=== PATIENT | female | born 1970 | race Caucasian/White ===

== ENCOUNTER 2016-10-01 15:22 | Inpatient (IN) | payer OTHER ==
[2016-10-01] MEDS ORDERED: SODIUM CHLORIDE 0.9% 1,000 ML IV STA (16:44)
[2016-10-01 17:06] LABS: Anisocytosis Slight; Basophils # (A) 0.1 k/uL (0-0.2); Basophils % (A) 1 %; CH 35.5; CHCM 32.2; Eosinophils # (A) 0.3 k/uL (0-0.7); Eosinophils % (A) 3 %; HCT 36.3 % (34.0-46.0); HDW 2.07; HGB 11.6 gm/dL (11.4-16.0); Luc # (Auto) 0.34; Luc % (Auto) 3; Lymphocytes % (A) 19 %; MCH 35.3 pg (25.0-35.0); MCHC 31.9 g/dL (31.0-37.0); MCV 110.9 fL (80.0-100.0); Macrocytosis Marked; Mean Platelet Volume 7.9; Monocytes # (A) 0.6 k/uL (0-1.0); Monocytes % (A) 6 %; Neutrophils % (A) 68 %; RBC 3.28 m/uL (3.80-5.40); RDW 16.1 % (11.5-15.5); WBC 10.3 k/uL (3.8-10.6); WBC (Perox) 10.09
[2016-10-01 17:07] LABS: Appearance,Urine Cloudy (Clear); Bacteria,Urine Rare /hpf; Bilirubin,Urine 2+ (Negative); Glucose,Urine (UA) Negative (Negative); Ketones,Urine Negative (Negative); Leukocyte Esterase,Urine Negative (Negative); Mucus,Urine Moderate /hpf; Nitrite,Urine Negative (Negative); Particle Count 9714; Protein,Urine Trace (Negative); RBC,Urine 2 /hpf (0-5); Specific Gravity,Urine 1.028 (1.001-1.035); Squamous Epithelial Cell,Urine 2 /hpf (0-4); UA Billing (MACRO vs. MICRO) MICRO; WBC,Urine 2 /hpf (0-5)
[2016-10-01 17:13] LABS: ALT 44 U/L (9-52); AST 118 U/L (14-36); Acetaminophen <10.0 ug/mL; Alcohol <10 mg/dL; Alkaline Phosphatase 204 U/L (38-126); Anion Gap 13 mmol/L; Blood Urea Nitrogen 7 mg/dL (7-17); Calcium 8.7 mg/dL (8.4-10.2); Carbon Dioxide 26 mmol/L (22-30); Chloride 99 mmol/L (98-107); Glucose 81 mg/dL (74-99); Magnesium 1.7 mg/dL (1.6-2.3); Non-African American GFR(MDRD) >60 (>60 ml/min/1.73 sqM); Phosphorous 4.4 mg/dL (2.5-4.5); Salicylate <1.0 mg/dL; Sodium 138 mmol/L (137-145); Total Bilirubin 7.8 mg/dL (0.2-1.3)
--- NOTE | 2016-10-01 17:15 | XR ---
EXAMINATION TYPE: XR chest 2V DATE OF EXAM: 10/01/2016 5:10 PM COMPARISON: NONE HISTORY: Jaundice and abdominal swelling TECHNIQUE: Frontal and lateral views of the chest are obtained. FINDINGS: Heart and mediastinum are normal. The lungs are clear of consolidation. There are no hilar masses. There is a relatively poor inspiration. Bony thorax is intact. IMPRESSION: Poor aspiration. Otherwise negative exam.
[2016-10-01 17:16] LABS: INR 2.1 (<1.1); Partial Thromboplastin Time 32.6 sec (22.0-30.0); Prothrombin Time 20.7 sec (9.0-12.0)
--- NOTE | 2016-10-01 17:19 | ED ---
General Adult HPI - General Chief complaint: Abdominal Pain Stated complaint: Abd Pain Time Seen by Provider: 10/01/16 16:06 Source: patient, RN notes reviewed, old records reviewed Mode of arrival: ambulatory Limitations: no limitations - History of Present Illness Initial comments: This is a 46-year-old female to the ER for evaluation of not feeling well the bowel pain and decreased appetite weight loss. Patient has no alcohol disease and is recently going through alcohol withdrawal, should make it completely through withdrawal and has no complaint withdraws time which is recently of severe swelling of her abdomen. Patient states her dialysis line is been going on for about a week getting severe and getting worse. She is also noticed skin color change and yellowing of her skin. She states she does not feel great but she still feels like she got throughout cultural - Related Data Home Medications Medication Instructions Recorded Confirmed Potassium Chloride ER [K-Dur 20] 20 mg PO QAM 10/01/16 10/01/16 Sertraline [Zoloft] 25 mg PO DAILY@1200 10/01/16 10/01/16 Spironolactone [Aldactone] 50 mg PO BID@1200,2100 10/01/16 10/01/16 Allergies Allergy/AdvReac Type Severity Reaction Status Date / Time No Known Allergies Allergy Verified 10/01/16 17:16 Review of Systems ROS Statement: Those systems with pertinent positive or pertinent negative responses have been documented in the HPI. ROS Other: All systems not noted in ROS Statement are negative. Past Medical History Additional Past Medical History / Comment(s): enlarged liver History of Any Multi-Drug Resistant Organisms: None Reported Past Surgical History: Section Past Psychological History: No Psychological Hx Reported Smoking Status: Never smoker Past Alcohol Use History: Heavy Past Drug Use History: None Reported General Exam - General Exam Comments Initial Comments: Jaundice, anxious Limitations: no limitations General appearance: alert, in no apparent distress Head exam: Present: atraumatic, normocephalic, normal inspection Eye exam: Present: normal appearance, PERRL, EOMI. Absent: scleral icterus, conjunctival injection, periorbital swelling ENT exam: Present: normal exam, mucous membranes moist Neck exam: Present: normal inspection. Absent: tenderness, meningismus, lymphadenopathy Respiratory exam: Present: normal lung sounds bilaterally. Absent: respiratory distress, wheezes, rales, rhonchi, stridor Cardiovascular Exam: Present: regular rate, normal rhythm, normal heart sounds. Absent: systolic murmur, diastolic murmur, rubs, gallop, clicks GI/Abdominal exam: Present: soft, normal bowel sounds. Absent: distended, tenderness, guarding, rebound, rigid Extremities exam: Present: normal inspection, full ROM, normal capillary refill. Absent: tenderness, pedal edema, joint swelling, calf tenderness Back exam: Present: normal inspection Neurological exam: Present: alert, oriented X3, CN II-XII intact Psychiatric exam: Present: normal affect, normal mood Skin exam: Present: warm, dry, intact, normal color. Absent: rash Course Vital Signs 10/01/16 15:44 Temperature 98.0 F Pulse Rate 84 Respiratory 18 Rate Blood Pressure 118/70 O2 Sat by Pulse 96 Oximetry - Reevaluation(s) Reevaluation #1: 10/01/16 17:30 Patient states she feels a little jittery, but not altered as far as her mental status goes EKG Findings - EKG Comments: EKG Findings:: EKG shows normal sinus rhythm rate 84, SD 152, QRS 84, QTC 493 Medical Decision Making - Medical Decision Making 46-year-old year with hyperbilirubinemia, alcohol cirrhosis, abdominal ascites, patient be admitted for paracentesis, GI evaluation - Lab Data Result diagrams: 10/01/16 16:30 Lab Results 10/01/16 10/01/16 10/01/16 Range/Units 16:30 16:30 16:30 WBC 10.3 (3.8-10.6) k/uL RBC 3.28 L (3.80-5.40) m/uL Hgb 11.6 (11.4-16.0) gm/dL Hct 36.3 (34.0-46.0) % MCV 110.9 H (80.0-100.0) fL MCH 35.3 H (25.0-35.0) pg MCHC 31.9 (31.0-37.0) g/dL RDW 16.1 H (11.5-15.5) % Plt Count 171 (150-450) k/uL PT 20.7 H (9.0-12.0) sec INR 2.1 (<1.1) APTT 32.6 H (22.0-30.0) sec Urine Color Brown Urine Appearance Cloudy H (Clear) Urine pH 6.0 (5.0-8.0) Ur Specific [place] 1.028 (1.001-1.035) Urine Protein Trace H (Negative) Urine Glucose (UA) Negative (Negative) Urine Ketones Negative (Negative) Urine Blood Negative (Negative) Urine Nitrite Negative (Negative) Urine Bilirubin 2+ H (Negative) Urine Urobilinogen 12.0 (<2.0) mg/dL Ur Leukocyte Esterase Negative (Negative) Urine RBC 2 (0-5) /hpf Urine WBC 2 (0-5) /hpf Ur Squamous Epith Cells 2 (0-4) /hpf Urine Bacteria Rare H (None) /hpf Hyaline Casts 4 H (0-2) /lpf Urine Mucus Moderate H (None) /hpf Urine Opiates Screen Not Detected (NotDetected) Ur Oxycodone Screen Not Detected (NotDetected) Urine Methadone Screen Not Detected (NotDetected) Ur Propoxyphene Screen Not Detected (NotDetected) Ur Barbiturates Screen Not Detected (NotDetected) U Tricyclic Antidepress Not Detected (NotDetected) Ur Phencyclidine Scrn Not Detected (NotDetected) Ur Amphetamines Screen Not Detected (NotDetected) U Methamphetamines Scrn Not Detected (NotDetected) U Benzodiazepines Scrn Not Detected (NotDetected) Urine Cocaine Screen Not Detected (NotDetected) U Marijuana (THC) Screen Not Detected (NotDetected) - Radiology Data Radiology results: report reviewed (Chest x-ray is negative for acute disease), image reviewed Disposition Clinical Impression: Abdominal pain, Ascites, Alcoholic cirrhosis, Liver failure, Hyperbilirubinemia Disposition: ADMITTED IP TO THIS [facility] Condition: Fair Referrals: None,Stated [Primary Care Provider] - 1-2 days
[2016-10-01] MEDS ORDERED: SODIUM CHLORIDE 0.9% 1,000 ML IV ONE (17:24)
[2016-10-01 17:25] LABS: Creatine Kinase 31 U/L (30-135)
[2016-10-01 17:30] LABS: Manual Review Performed; Target Cells Present
[2016-10-01 17:31] LABS: Polychromasia Present
[2016-10-01 17:35] LABS: Creatine Kinase MB <0.2 ng/mL (0.0-2.4)
[2016-10-01] MEDS ORDERED: THIAMINE 100 MG/ML 2 ML VIAL IM STA (17:41)
[2016-10-01] MEDS ORDERED: LORazepam 2 MG/ML SYRINGE IV PRN ×3 (17:41)
[2016-10-01 17:43] LABS: Hepatitis B Surface Ag Index 0.49
[2016-10-01 17:49] LABS: Hepatitis B Core IgM Index 0.11
[2016-10-01 18:01] LABS: Hepatitis C Virus IgG Ab Negative (Negative); Hepatitis C Virus IgG Index 0.14
[2016-10-01 18:46] VITALS: BMI 22.3
[2016-10-01] MEDS: MORPHINE SULFATE 2 MG/ML SYRINGE IVP PRN (19:46)
[2016-10-01] MEDS: DEXTROSE 5%-0.45% NACL 1,000 ML IV SCH (20:55)
[2016-10-02] MEDS: MORPHINE SULFATE 2 MG/ML SYRINGE IVP PRN ×4 (05:56→23:19)
[2016-10-02] MEDS: MULTIVITAMINS, THERA 1 EACH TAB PO SCH (11:14)
[2016-10-02] MEDS: THIAMINE 100 MG TAB PO SCH ×2 (11:14→16:33)
[2016-10-02] MEDS ORDERED: PHYTONADIONE ORAL 5 MG/5 ML ORAL.SYRG PO STA (14:48)
[2016-10-02 15:28] LABS: INR 2.4 (<1.1); Prothrombin Time 22.9 sec (9.0-12.0)
[2016-10-02] MEDS: DEXTROSE 5%-0.45% NACL 1,000 ML IV SCH (16:35)
[2016-10-02] MEDS: IOHEXOL 350 MG/ML 25 ML BOTTLE (ORAL USE) PO PRN ×2 (20:03→21:06)
[2016-10-02] MEDS: SPIRONOLACTONE 25 MG TAB PO SCH (20:42)
[2016-10-02] MEDS: FUROSEMIDE 10 MG/ML 4 ML VIAL IV SCH (20:42)
[2016-10-03] MEDS: HYDROcodone/APAP 5-325MG 1 EACH TAB PO PRN ×3 (06:12→18:42)
[2016-10-03] MEDS: SPIRONOLACTONE 25 MG TAB PO SCH ×2 (08:03→15:26)
[2016-10-03] MEDS: FUROSEMIDE 10 MG/ML 4 ML VIAL IV SCH (08:03)
[2016-10-03] MEDS: POTASSIUM CHLORIDE ER 20 MEQ TAB.ER PO SCH (08:03)
[2016-10-03] MEDS: PANTOPRAZOLE 40 MG TABLET PO SCH (08:03)
--- NOTE | 2016-10-03 08:28 | CT ---
EXAMINATION TYPE: CT abdomen pelvis wo con DATE OF EXAM: 10/02/2016 9:44 PM COMPARISON: NONE HISTORY: Pt states of abdominal distention. CT DLP: 413.0 mGycm Automated exposure control for dose reduction was used. TECHNIQUE: Helical acquisition of images from the lung bases through the pelvis. FINDINGS: LUNG BASES: Some dependent atelectatic changes are present, there is a small, minimal amount of pleur al fluid on the left. AORTA: No significant abnormality is appreciated, lack of contrast may compromise sensitivity. LIVER/GB: Suspect the gallbladder is hydropic. The liver shows a nodular contour, there may be underl irene cirrhosis. PANCREAS: No significant abnormality is seen. SPLEEN: No significant abnormality is seen. ADRENALS: No significant abnormality is seen. KIDNEYS: No significant abnormality is seen. REPRODUCTIVE ORGANS: No significant abnormality is seen. URINARY BLADDER: No significant abnormality is seen. BOWEL: Some bowel wall thickening could be due to ascites, hypoproteinemia FREE AIR: No Free Air is visible. ASCITES: There is ascites present, moderate amount about the liver and within the pelvis PELVIC ADENOPATHY: None visualized. RETROPERITONEAL ADENOPATHY: No Retroperitoneal Adenopathy visible. OSSEOUS STRUCTURES: No significant abnormality is seen. IMPRESSION: CORRELATE FOR CIRRHOSIS WITH ASCITES. NONCONTRAST EXAM. HYDROPIC GALLBLADDER.
[2016-10-03] MEDS ORDERED: PHYTONADIONE ORAL 5 MG/5 ML ORAL.SYRG PO SCH (09:00)
[2016-10-03 09:59] LABS: Basophils # (A) 0.1 k/uL (0-0.2); Basophils % (A) 1 %; CH 35.4; CHCM 32.2; Eosinophils # (A) 0.3 k/uL (0-0.7); Eosinophils % (A) 4 %; HCT 32.4 % (34.0-46.0); HDW 1.99; HGB 10.4 gm/dL (11.4-16.0); Luc # (Auto) 0.22; Luc % (Auto) 3; Lymphocytes # (A) 1.8 k/uL (1.0-4.8); Lymphocytes % (A) 22 %; MCH 35.6 pg (25.0-35.0); MCHC 32.2 g/dL (31.0-37.0); MCV 110.5 fL (80.0-100.0); Macrocytosis Marked; Mean Platelet Volume 7.9; Monocytes # (A) 0.5 k/uL (0-1.0); Monocytes % (A) 6 %; Neutrophils # (A) 5.1 k/uL (1.3-7.7); Neutrophils % (A) 64 %; RBC 2.93 m/uL (3.80-5.40); RDW 15.8 % (11.5-15.5); WBC 8.1 k/uL (3.8-10.6); WBC (Perox) 8.75
[2016-10-03 10:14] LABS: ALT 41 U/L (9-52); AST 100 U/L (14-36); Alkaline Phosphatase 129 U/L (38-126); Anion Gap 7 mmol/L; Blood Urea Nitrogen 7 mg/dL (7-17); Calcium 8.1 mg/dL (8.4-10.2); Carbon Dioxide 29 mmol/L (22-30); Chloride 99 mmol/L (98-107); Glucose 144 mg/dL (74-99); INR 2.2 (<1.1); Non-African American GFR(MDRD) >60 (>60 ml/min/1.73 sqM); Potassium 3.4 mmol/L (3.5-5.1); Prothrombin Time 20.8 sec (9.0-12.0); Sodium 135 mmol/L (137-145)
[2016-10-03] MEDS ORDERED: PHYTONADIONE ORAL 5 MG/5 ML ORAL.SYRG PO STA ×2 (10:20→19:51)
[2016-10-03] MEDS: SERTRALINE 25 MG TAB PO SCH (11:20)
[2016-10-03] MEDS: MULTIVITAMINS, THERA 1 EACH TAB PO SCH (11:20)
[2016-10-03] MEDS: THIAMINE 100 MG TAB PO SCH ×2 (11:20→15:26)
[2016-10-03] MEDS: FOLIC ACID 1 MG TAB PO SCH (11:20)
--- NOTE | 2016-10-03 12:07 | HP ---
CHIEF COMPLAINT: Abdominal pain and distention. HISTORY OF PRESENT ILLNESS: A 46-year-old woman with a past medical history of section, history of significant EtOH, is complaining of progressive abdominal distension for the last several weeks. Patient also complaining of abdominal pain, which is diffuse in nature, and patient is followed by in [facility]. The patient also was seen by Dr. Jacobson in the outpatient setting also. Because of increasing difficulties, patient came to [facility] ER and admitted for further evaluation and treatment. The chest x-ray showed poor inspiration. There is no history of any fever, rigors, chills. No history of headache, loss of consciousness, seizures. Ascites was suspected from the clinical exam. PAST MEDICAL HISTORY: History of enlarged liver, history of section. Medications are: 1. Aldactone 50 mg p.o. b.i.d. 2. Zoloft 20 mg daily. 3. K-Dur 20 mEq p.o. daily. Allergies are none. FAMILY HISTORY: No history of heart disease, strokes in the family. SOCIAL HISTORY: History of alcohol. No history of smoking. REVIEW OF SYSTEMS: ENT: No diminished hearing. No diminished vision. CARDIOVASCULAR: No angina or palpitations. RESPIRATORY: As mentioned earlier. GI: No nausea, vomiting. : No dysuria. NERVOUS: No numbness or weakness. ALLERGY/IMMUNOLOGY: No asthma, hay fever. MUSCULOSKELETAL: As mentioned earlier. HEMATOLOGY/ONCOLOGY: No history of anemia. ENDOCRINE: No history of diabetes, hypothyroidism. CONSTITUTIONAL: Negative. DERMATOLOGY: Negative. PSYCHIATRY: As mentioned earlier. PHYSICAL EXAMINATION: Alert and oriented x3. Pulse 81, blood pressure 115/69, respirations 16, temperature 98.2, pulse ox 98% on room air. HEENT: Conjunctivae normal. Oral mucosa moist. NECK: No jugular venous distension. No carotid bruits. No lymph node enlargement. CARDIOVASCULAR: S1 and S2 muffled. RESPIRATORY: Breath sounds diminished in the bases. A few scattered rhonchi. No crackles. ABDOMEN: Soft. Ascites present. Rather tense with fluid thrills present. Flanks are dull. Bowel sounds diminished. No mass palpable. No hepatosplenomegaly. LEGS: No edema. No swelling. Nervous System: Higher functions as mentioned. Moves all 4 limbs. No focal motor or sensory deficits. LYMPHATIC: No lymph nodes palpable in neck, axillae or groins. SKIN: No ulcer, rash or bleeding. LABS: WBC 10.3, hemoglobin is 11.6, MCV 110.9. INR is 2.1. Total bilirubin 7.8, AST is 118, ALT is 44, alk phos 204. UA 2+ bilirubin, otherwise noted. Tox screen is negative. Hepatitis panel is negative. ASSESSMENT: 1. Abdominal distention, possible ascites with cirrhosis of liver. 2. History of EtOH. 3. Increased MCV possibly secondary to EtOH. 4. Coagulopathy possibly secondary to chronic liver disease and secondary to EtOH. 5. Hyperbilirubinemia as well as increased AST, possibly alcoholic hepatitis. 6. Increased alkaline phosphatase and hypoalbuminemia with mild to moderate protein-calorie malnutrition. 7. History of section. 8. FULL CODE. RECOMMENDATIONS AND DISCUSSION: In this 46-year-old woman who presented with multiple complex medical issues, will monitor the patient closely. Continue with the current medications. Continue with symptomatic treatment. Will initiate CIWA protocol, gastroenterology consultation. Will initiate diuretics. Otherwise, I would also recommend an interventional radiology evaluation and consultation for possible ascitic aspiration. Vitamin K could be initiated to counter the coagulopathy. Further recommendations to follow. Prognosis extremely guarded because of multiple complex medical issues. Will also obtain a diagnostic paracentesis. Dr. Jacobson is also consulted to evaluate from the gastroenterology standpoint of view. Most likely, the patient has cirrhosis of the liver related to EtOH, but other possibilities are not completely ruled out, either. MTDD
[2016-10-03] MEDS: DEXTROSE 5%-0.45% NACL 1,000 ML IV SCH (18:44)
[2016-10-03 19:20] LABS: INR 2.2 (<1.1); Prothrombin Time 21.1 sec (9.0-12.0)
[2016-10-04] MEDS: HYDROcodone/APAP 5-325MG 1 EACH TAB PO PRN ×3 (01:11→18:26)
[2016-10-04] MEDS: ONDANSETRON 4 MG/2 ML VIAL IVP PRN ×2 (02:54→09:47)
[2016-10-04 09:45] LABS: INR 2.2 (<1.1); Prothrombin Time 21.4 sec (9.0-12.0)
[2016-10-04] MEDS: FUROSEMIDE 10 MG/ML 4 ML VIAL IV SCH (09:47)
[2016-10-04] MEDS: POTASSIUM CHLORIDE ER 20 MEQ TAB.ER PO SCH (09:48)
[2016-10-04] MEDS: PANTOPRAZOLE 40 MG TABLET PO SCH (09:48)
[2016-10-04] MEDS: SPIRONOLACTONE 25 MG TAB PO SCH ×2 (09:48→18:26)
[2016-10-04 10:05] LABS: Basophils # (A) 0.1 k/uL (0-0.2); Basophils % (A) 1 %; CH 35.7; CHCM 32.6; Eosinophils # (A) 0.1 k/uL (0-0.7); Eosinophils % (A) 1 %; HCT 31.3 % (34.0-46.0); HDW 2.06; HGB 10.2 gm/dL (11.4-16.0); Luc # (Auto) 0.09; Luc % (Auto) 1; Lymphocytes # (A) 0.3 k/uL (1.0-4.8); Lymphocytes % (A) 4 %; MCHC 32.6 g/dL (31.0-37.0); MCV 110.3 fL (80.0-100.0); Macrocytosis Marked; Mean Platelet Volume 8.8; Monocytes # (A) 0.2 k/uL (0-1.0); Monocytes % (A) 2 %; Neutrophils # (A) 7.6 k/uL (1.3-7.7); Neutrophils % (A) 92 %; RBC 2.84 m/uL (3.80-5.40); RDW 15.9 % (11.5-15.5); WBC 8.3 k/uL (3.8-10.6); WBC (Perox) 9.13
--- NOTE | 2016-10-04 10:10 | PN ---
DATE OF SERVICE: 10/03/2016 This 46-year-old woman who was admitted with abdominal pain and distention had significant ascites and possibly secondary to cirrhosis of the liver. CAT scan was done which showed cirrhosis with ascites, hydropic gallbladder was also noted. No chest pain or palpitation. No fever. On exam, alert and oriented times three. Pulse 79, blood pressure 102/66, respiratory rate 16. Temperature 97.6. Pulse 92% on room air. HEENT: Conjunctivae normal. NECK: No jugular venous distention. CARDIOVASCULAR: S1, S2 muffled. RESPIRATORY: Breath sounds diminished at the bases. No rhonchi. No crackles. ABDOMEN: Soft diffuse ascites present. LEGS: No edema. No swelling. CENTRAL NERVOUS SYSTEM: No focal deficits. LABS: WBC 8.8, hemoglobin 10.5, MCV 110.5. INR is 2.2, sodium 134, potassium 3.4, calcium is 8.1, total bilirubin was 8, AST 100. Albumin is 2.8. ASSESSMENT: 1. Abdominal distention, possible ascites, cirrhosis of the liver. 2. History of ETOH. 3. Increased mean corpuscular volume, possibly secondary to ETOH. 4. Coagulopathy possibly secondary to chronic liver disease secondary to ETOH. 5. Hyperbilirubinemia with possibly increased AST, possible alcoholic hepatitis. 6. Increased alkaline phosphatase and hypoalbuminemia with mild to moderate protein calorie malnutrition. 7. History of sections. 8. FULL CODE. RECOMMENDATIONS AND DISCUSSION: In this 46 -year-old woman who presented with multiple complex medical issues, we will monitor the patient closely. Continue with I would recommend vitamin K 10 mg p.o. daily. Closely follow with gastroenterology. Otherwise, interventional radiology consultation. Possible diagnostic and therapeutic paracentesis. Guarded prognosis. Further recommendations to follow. MTDD
[2016-10-04 10:26] LABS: ALT 37 U/L (9-52); AST 99 U/L (14-36); Alkaline Phosphatase 133 U/L (38-126); Anion Gap 12 mmol/L; Blood Urea Nitrogen 13 mg/dL (7-17); Carbon Dioxide 26 mmol/L (22-30); Chloride 100 mmol/L (98-107); Glucose 111 mg/dL (74-99); Non-African American GFR(MDRD) >60 (>60 ml/min/1.73 sqM); Sodium 138 mmol/L (137-145); Total Bilirubin 8.6 mg/dL (0.2-1.3); Total Protein 7.7 g/dL (6.3-8.2)
[2016-10-04 11:48] LABS: Target Cells Present
[2016-10-04] MEDS: FOLIC ACID 1 MG TAB PO SCH (12:46)
[2016-10-04] MEDS: MULTIVITAMINS, THERA 1 EACH TAB PO SCH (12:46)
[2016-10-04] MEDS: SERTRALINE 25 MG TAB PO SCH (12:46)
[2016-10-04] MEDS: THIAMINE 100 MG TAB PO SCH ×2 (12:46→18:26)
[2016-10-04] MEDS: MORPHINE SULFATE 2 MG/ML SYRINGE IVP PRN (14:14)
[2016-10-04] MEDS: DEXTROSE 5%-0.45% NACL 1,000 ML IV SCH (22:19)
[2016-10-05] MEDS: HYDROcodone/APAP 5-325MG 1 EACH TAB PO PRN ×3 (00:53→16:34)
[2016-10-05] MEDS: POTASSIUM CHLORIDE ER 20 MEQ TAB.ER PO SCH ×3 (08:00→16:21)
[2016-10-05] MEDS: FUROSEMIDE 10 MG/ML 4 ML VIAL IV SCH (08:00)
[2016-10-05] MEDS: SPIRONOLACTONE 25 MG TAB PO SCH ×2 (08:00→15:26)
[2016-10-05] MEDS: PANTOPRAZOLE 40 MG TABLET PO SCH (08:01)
[2016-10-05 08:32] LABS: INR 2.3 (<1.1); Prothrombin Time 21.7 sec (9.0-12.0)
[2016-10-05 08:41] LABS: Basophils % (A) 1 %; CH 35.6; CHCM 32.6; Eosinophils # (A) 0.2 k/uL (0-0.7); Eosinophils % (A) 3 %; HDW 2.02; HGB 10.8 gm/dL (11.4-16.0); Luc # (Auto) 0.15; Luc % (Auto) 3; Lymphocytes # (A) 1.3 k/uL (1.0-4.8); Lymphocytes % (A) 21 %; MCHC 32.7 g/dL (31.0-37.0); MCV 109.9 fL (80.0-100.0); Macrocytosis Marked; Mean Platelet Volume 7.5; Monocytes # (A) 0.3 k/uL (0-1.0); Monocytes % (A) 6 %; Neutrophils # (A) 4.1 k/uL (1.3-7.7); Neutrophils % (A) 68 %; RDW 15.7 % (11.5-15.5); WBC 6.1 k/uL (3.8-10.6); WBC (Perox) 6.47
[2016-10-05 08:52] LABS: ALT 33 U/L (9-52); AST 97 U/L (14-36); Alkaline Phosphatase 106 U/L (38-126); Anion Gap 10 mmol/L; Blood Urea Nitrogen 15 mg/dL (7-17); Calcium 7.7 mg/dL (8.4-10.2); Carbon Dioxide 29 mmol/L (22-30); Chloride 96 mmol/L (98-107); Glucose 103 mg/dL (74-99); Non-African American GFR(MDRD) >60 (>60 ml/min/1.73 sqM); Potassium 3.3 mmol/L (3.5-5.1); Sodium 135 mmol/L (137-145); Total Bilirubin 7.3 mg/dL (0.2-1.3); Total Protein 7.8 g/dL (6.3-8.2)
--- NOTE | 2016-10-05 09:21 | P.PN ---
Subjective Date of service 10/04/2016. Progress note being dictated for Dr. Stoddard. Interval history: This is a 46-year-old female admitted with alcoholic cirrhosis , ascites and multiple other medical issues. Patient states quit drinking 21 days ago. INR 2.2 post vitamin K. therapeutic and diagnostic paracentesis pending.Total bili 8.6. Mildly elevated alk phos and ALT.albumin 2.7. Abdomen softer today, abdominal discomfort improving. Denies increased shortness of breath, palpitations or chest pain. Objective - Vital Signs Vital signs: Vital Signs Temp 101 F H 10/04/16 15:00 Pulse 92 10/04/16 15:00 Resp 17 10/04/16 15:00 BP 91/56 10/04/16 15:00 Pulse Ox 93 L 10/04/16 15:00 Intake & Output 10/03/16 10/04/16 10/04/16 18:59 06:59 18:59 Intake Total 500 Balance 500 Weight 69.5 kg Intake: Oral 500 Other: Voiding Method Toilet Toilet # Voids 6 1 2 # Emeses 1 - Exam PHYSICAL EXAMAs above GENERAL: [Sitting up in bed, no acute distress] HEENT: [Pupils equal, sclera icterus] NECK: [Supple, no JVD] RESPIRATORY EFFORT:[Normal] LUNGS: [Essentially clear bilateral bases diminished] CARDIOVASCULAR[regular S1 and S2, no edema] GI: [Abdomen soft ascites ,diffuse tenderness, positive bowel sounds.] PSYCH: [Alert and oriented -3, mood and affect normal.] SKIN: [Jaundiced] NEURO: [No focal deficits, moves all 4 extremities, strength and sensation intact] - Labs CBC & Chem 7: 10/05/16 08:13 10/05/16 08:13 Labs: Abnormal Lab Results - Last 24 Hours (Table) 10/03/16 10/04/16 10/04/16 Range/Units 18:46 08:52 08:52 RBC 2.84 L (3.80-5.40) m/uL Hgb 10.2 L (11.4-16.0) gm/dL Hct 31.3 L (34.0-46.0) % MCV 110.3 H (80.0-100.0) fL MCH 36.0 H (25.0-35.0) pg RDW 15.9 H (11.5-15.5) % Plt Count 148 L (150-450) k/uL Lymphocytes # 0.3 L (1.0-4.8) k/uL PT 21.1 H 21.4 H (9.0-12.0) sec Glucose (74-99) mg/dL Calcium (8.4-10.2) mg/dL Total Bilirubin (0.2-1.3) mg/dL AST (14-36) U/L Alkaline Phosphatase (38-126) U/L Albumin (3.5-5.0) g/dL 10/04/16 Range/Units 08:52 RBC (3.80-5.40) m/uL Hgb (11.4-16.0) gm/dL Hct (34.0-46.0) % MCV (80.0-100.0) fL MCH (25.0-35.0) pg RDW (11.5-15.5) % Plt Count (150-450) k/uL Lymphocytes # (1.0-4.8) k/uL PT (9.0-12.0) sec Glucose 111 H (74-99) mg/dL Calcium 8.0 L (8.4-10.2) mg/dL Total Bilirubin 8.6 H (0.2-1.3) mg/dL AST 99 H (14-36) U/L Alkaline Phosphatase 133 H (38-126) U/L Albumin 2.7 L (3.5-5.0) g/dL Assessment and Plan Plan: 1. [Abdominal distention, ascites, cirrhosis of the liver in a patient with history of EtOH abuse,]. 2. [Coagulopathy secondary to chronic liver disease secondary to EtOH]. 3. [Increased MCV, possibly secondary to EtOH]. 4. [Increased alkaline phosphatase and AST]. 5. [Hyperbilirubinemia with elevated AST possibly alcoholic hepatitis]. 6. [Increased alk phos,[hypoalbuminemia, mild to moderate protein calorie malnutrition, BMI 22.6]. 7. Hydropic gallbladder 8. Thrombocytopenia secondary to EtOH abuse Plan: Continue on current medication regime ,monitoring and symptomatic treatment. Repeat vitamin K 10 mg by mouth tonight. Diagnostics/therapeutic paracentesis pending per interventional radiology. patient will require FFP , will discuss with GI and interventional radiology. GI consult in place with recommendations pending. Prognosis guarded. The impression and plan of care has been dictated as directed. : I performed a H&P examination of this patient and discussed the same with the dictator. I agree with the dictator's note. Any additional findings/opinions/ etc. will be noted.
--- NOTE | 2016-10-05 10:18 | PN ---
DATE OF SERVICE: 10/04/2016 This 47-year-old woman who was admitted with abdominal distention with possible cirrhosis and ascites is scheduled for ascitic paracentesis. I have seen and evaluated the patient with the nurse practitioner. Please refer to the nurse practitioner's notes and observations, recommendations documented as scribe for further information. I would recommend fresh frozen plasma and platelets during the abdominal paracentesis. Stable, but overall prognosis is guarded. Closely follow with GI. Further recommendations to follow.
--- NOTE | 2016-10-05 11:28 | P.PN ---
Subjective Principal diagnosis: Ascites 46-year-old female with a history of heavy EtOH abuse admitted with abdominal distention new onset ascites. Scheduled for therapeutic diagnostic paracentesis today. INR 2.3. Total bilirubin 7.3. Platelet 145. Hepatitis panel negative. Last drink of alcohol 22 days ago. Objective - Vital Signs Vital signs: Vital Signs Temp 97.2 F L 10/05/16 11:10 Pulse 81 10/05/16 11:10 Resp 20 10/05/16 11:10 BP 117/71 10/05/16 11:10 Pulse Ox 90 L 10/05/16 07:31 Intake & Output 10/04/16 10/05/16 10/05/16 18:59 06:59 18:59 Intake Total 0 0 Balance 0 0 Weight 71 kg Intake: Oral 0 Blood Product 0 Ffp 24 Cpda Unit 0 [id number] Other: Voiding Method Toilet Toilet # Voids 2 1 # Bowel Movements 1 - Exam General appearance: The patient is alert, oriented, in no acute distress. Jaundice. HET: Head is normocephalic and atraumatic. Pupils are equal and reactive. Sclerae icterus. Oropharynx is clear without lesions. Neck: Supple without lymphadenopathy. Trachea midline. Heart: S1 S2. Regular rate and rhythm. Lungs: No crackles or wheezes are heard. Abdomen: Soft, nontender, distended with ascites with bowel sounds. No peritoneal signs. No palpable organomegaly or masses. Extremities: Normal skin color and turgor. No cyanosis, rash, ulceration, clubbing, or edema. Radial and pedal pulses are 2/4 bilaterally. Neurological: No focal deficits. Strength and sensation are grossly intact. - Labs CBC & Chem 7: 10/05/16 08:13 10/05/16 08:13 Labs: Abnormal Lab Results - Last 24 Hours (Table) 10/04/16 10/05/16 10/05/16 Range/Units 08:52 08:13 08:13 RBC 2.84 L 3.00 L (3.80-5.40) m/uL Hgb 10.2 L 10.8 L (11.4-16.0) gm/dL Hct 31.3 L 33.0 L (34.0-46.0) % MCV 110.3 H 109.9 H (80.0-100.0) fL MCH 36.0 H 36.0 H (25.0-35.0) pg RDW 15.9 H 15.7 H (11.5-15.5) % Plt Count 148 L 145 L (150-450) k/uL Lymphocytes # 0.3 L (1.0-4.8) k/uL PT 21.7 H (9.0-12.0) sec Sodium (137-145) mmol/L Potassium (3.5-5.1) mmol/L Chloride (98-107) mmol/L Glucose (74-99) mg/dL Calcium (8.4-10.2) mg/dL Total Bilirubin (0.2-1.3) mg/dL AST (14-36) U/L Albumin (3.5-5.0) g/dL 10/05/16 Range/Units 08:13 RBC (3.80-5.40) m/uL Hgb (11.4-16.0) gm/dL Hct (34.0-46.0) % MCV (80.0-100.0) fL MCH (25.0-35.0) pg RDW (11.5-15.5) % Plt Count (150-450) k/uL Lymphocytes # (1.0-4.8) k/uL PT (9.0-12.0) sec Sodium 135 L (137-145) mmol/L Potassium 3.3 L (3.5-5.1) mmol/L Chloride 96 L (98-107) mmol/L Glucose 103 H (74-99) mg/dL Calcium 7.7 L (8.4-10.2) mg/dL Total Bilirubin 7.3 H (0.2-1.3) mg/dL AST 97 H (14-36) U/L Albumin 2.7 L (3.5-5.0) g/dL Assessment and Plan (1) Alcoholic liver disease Status: Acute (2) ETOH abuse Status: Acute (3) Ascites Status: Acute (4) Coagulopathy Narrative/Plan: Secondary to underlying alcohol liver disease Status: Acute (5) Alcoholic hepatitis with ascites Status: Acute Plan: 1. Therapeutic diagnostic paracentesis. Prednisone 40 mg daily for acute alcohol hepatitis. 2. FFP transfusion before and after procedure. 3. Alcohol abstinence counseled. 4. Continue with supportive measures and diuretics. Recommend oral Lasix 40 mg daily and Aldactone 100 mg daily on discharge. 5. Follow up in GI office in 3-4 weeks patient has appointment scheduled in [place] with Dr. Jauregui. Assessment and plan of care discussed with Dr. Jacobson.
[2016-10-05] MEDS: FOLIC ACID 1 MG TAB PO SCH (12:46)
[2016-10-05] MEDS: THIAMINE 100 MG TAB PO SCH ×2 (12:47→16:21)
[2016-10-05] MEDS: MULTIVITAMINS, THERA 1 EACH TAB PO SCH (12:47)
[2016-10-05] MEDS: SERTRALINE 25 MG TAB PO SCH (12:47)
[2016-10-05] MEDS ORDERED: Potassium Replacement Protocol 1 EACH MISC MISCELLANE PRN (14:52)
[2016-10-05] MEDS: predniSONE 20 MG TAB PO SCH (15:25)
[2016-10-05] MEDS ORDERED: Magnesium Replacement Protocol 1 EACH MISC MISCELLANE PRN (15:48)
--- NOTE | 2016-10-05 16:06 | US ---
EXAMINATION TYPE: US paracentesis abd w/image DATE OF EXAM: 10/05/2016 3:04 PM CLINICAL HISTORY: Ascites The procedure was discussed with the patient. The risks, complications, benefits, and alternatives we re discussed and any questions were answered. Informed consent was obtained. The patient was placed s upine on the ultrasound table and prepped and draped in the usual sterile fashion. All elements of maximal barrier technique were utilized. Under ultrasound guidance, access into the right lower quadrant was obtained, via the paracentesis catheter system and direct ultrasound guidanc e. Approximately 2.06 liters of straw-colored fluid was removed. The patient was stable throughout the p rocedure and remained stable upon discharge from Department of Radiology. Sample sent to pathology. IMPRESSION: Successful therapeutic and diagnostic paracentesis under ultrasound guidance.
[2016-10-05 18:38] LABS: RBC, Body Fluid 63 /uL
[2016-10-05] MEDS: MAGNESIUM SULFATE-D5W PMX 1 GM in DEXTROSE/WATER 1 100ML.BAG IVPB SCH ×3 (19:02→23:15)
[2016-10-05] MEDS: DEXTROSE 5%-0.45% NACL 1,000 ML IV SCH (19:03)
--- NOTE | 2016-10-05 22:57 | P.PN ---
Subjective Date of service 10/04/2016. Progress note being dictated for Dr. Stoddard. Interval history: This is a 46-year-old female admitted with alcoholic cirrhosis , new onset ascites and multiple other medical issues. Scheduled for diagnostic and therapeutic paracentesis today. INR 2.3, scheduled to receive FFP prior to and after procedure. evaluated by GI with recommendations noted. T bili 7.3. Platelets 145. Potassium 3.3, magnesium 1.4. Denies increased shortness of breath, palpitations or chest pain. Objective - Vital Signs Vital signs: Vital Signs Temp 97.9 F 10/05/16 07:00 Pulse 78 10/05/16 07:00 Resp 18 10/05/16 07:00 BP 98/55 10/05/16 07:00 Pulse Ox 90 L 10/05/16 07:31 Intake & Output 10/04/16 10/05/16 10/05/16 18:59 06:59 18:59 Intake Total 0 Balance 0 Weight 71 kg Intake: Oral 0 Other: Voiding Method Toilet Toilet # Voids 2 1 # Bowel Movements 1 - Exam PHYSICAL EXAMAs above GENERAL: [ standing up at bedside, no acute distress] HEENT: [Pupils equal, sclera icterus] NECK: [Supple, no JVD] RESPIRATORY EFFORT:[Normal] LUNGS: [Essentially clear bilateral bases diminished] CARDIOVASCULAR[regular S1 and S2, no edema] GI: [Abdomen soft ascites ,diffuse tenderness, positive bowel sounds.] PSYCH: [Alert and oriented -3, mood and affect normal.] SKIN: [Jaundiced] NEURO: [No focal deficits, moves all 4 extremities, strength and sensation intact] - Labs CBC & Chem 7: 10/05/16 08:13 10/05/16 08:13 Labs: Abnormal Lab Results - Last 24 Hours (Table) 10/04/16 10/04/16 10/04/16 Range/Units 08:52 08:52 08:52 RBC 2.84 L (3.80-5.40) m/uL Hgb 10.2 L (11.4-16.0) gm/dL Hct 31.3 L (34.0-46.0) % MCV 110.3 H (80.0-100.0) fL MCH 36.0 H (25.0-35.0) pg RDW 15.9 H (11.5-15.5) % Plt Count 148 L (150-450) k/uL Lymphocytes # 0.3 L (1.0-4.8) k/uL PT 21.4 H (9.0-12.0) sec Sodium (137-145) mmol/L Potassium (3.5-5.1) mmol/L Chloride (98-107) mmol/L Glucose 111 H (74-99) mg/dL Calcium 8.0 L (8.4-10.2) mg/dL Total Bilirubin 8.6 H (0.2-1.3) mg/dL AST 99 H (14-36) U/L Alkaline Phosphatase 133 H (38-126) U/L Albumin 2.7 L (3.5-5.0) g/dL 10/05/16 10/05/16 10/05/16 Range/Units 08:13 08:13 08:13 RBC 3.00 L (3.80-5.40) m/uL Hgb 10.8 L (11.4-16.0) gm/dL Hct 33.0 L (34.0-46.0) % MCV 109.9 H (80.0-100.0) fL MCH 36.0 H (25.0-35.0) pg RDW 15.7 H (11.5-15.5) % Plt Count 145 L (150-450) k/uL Lymphocytes # (1.0-4.8) k/uL PT 21.7 H (9.0-12.0) sec Sodium 135 L (137-145) mmol/L Potassium 3.3 L (3.5-5.1) mmol/L Chloride 96 L (98-107) mmol/L Glucose 103 H (74-99) mg/dL Calcium 7.7 L (8.4-10.2) mg/dL Total Bilirubin 7.3 H (0.2-1.3) mg/dL AST 97 H (14-36) U/L Alkaline Phosphatase (38-126) U/L Albumin 2.7 L (3.5-5.0) g/dL Assessment and Plan Plan: 1. [Abdominal distention, ascites, cirrhosis of the liver in a patient with history of EtOH abuse,]. 2. [Coagulopathy secondary to chronic liver disease secondary to EtOH]. 3. [Increased MCV, possibly secondary to EtOH]. 4. [Increased alkaline phosphatase and AST]. 5. [Hyperbilirubinemia with elevated AST possibly alcoholic hepatitis]. 6. [Increased alk phos,[hypoalbuminemia, mild to moderate protein calorie malnutrition, BMI 22.6]. 7. Hydropic gallbladder 8. Thrombocytopenia secondary to EtOH abuse Plan: Continue on current medication regime , prednisone, Lasix, Aldactone, monitoring and symptomatic treatment. Diagnostics/therapeutic paracentesis pending per interventional radiology today with FFP as mentioned above. Potassium and magnesium supplements ordered. Prognosis guarded. discharge planning in progress for tomorrow. The impression and plan of care has been dictated as directed. : I performed a H&P examination of this patient and discussed the same with the dictator. I agree with the dictator's note. Any additional findings/opinions/ etc. will be noted.
--- NOTE | 2016-10-05 23:44 | PN ---
DATE OF SERVICE: 10/05/2016 This 46-year-old woman was admitted with abdominal distention and ascites. Seen and evaluated the patient along with nurse practitioner. Please refer to the nurse practitioner notes and impression documented as a scribe for further information. Interventional radiology to perform ascitic tap and about 2 liters of straw colored fluid was removed. The patient given fresh frozen plasma and also platelets. Please refer to the nurse practitioner notes and impression documented as a scribe for further information. Prognosis guarded.
[2016-10-06] MEDS: HYDROcodone/APAP 5-325MG 1 EACH TAB PO PRN ×2 (01:15→08:46)
[2016-10-06 07:45] VITALS: BP 112/56; PULSE 76; RESP 20; TEMP 97.2
[2016-10-06 07:50] LABS: Prothrombin Time 18.8 sec (9.0-12.0)
[2016-10-06 07:51] LABS: Basophils % (A) 0 %; CH 35.5; CHCM 32.9; Eosinophils % (A) 0 %; HCT 30.6 % (34.0-46.0); HDW 2.15; HGB 9.8 gm/dL (11.4-16.0); Luc # (Auto) 0.19; Luc % (Auto) 3; Lymphocytes # (A) 0.8 k/uL (1.0-4.8); Lymphocytes % (A) 11 %; MCH 34.8 pg (25.0-35.0); MCHC 32.1 g/dL (31.0-37.0); MCV 108.5 fL (80.0-100.0); Macrocytosis Marked; Mean Platelet Volume 8.7; Monocytes # (A) 0.3 k/uL (0-1.0); Monocytes % (A) 4 %; Neutrophils # (A) 6.2 k/uL (1.3-7.7); Neutrophils % (A) 83 %; RBC 2.82 m/uL (3.80-5.40); RDW 15.8 % (11.5-15.5); WBC 7.4 k/uL (3.8-10.6); WBC (Perox) 8.01
[2016-10-06 07:54] LABS: ALT 38 U/L (9-52); AST 72 U/L (14-36); Alkaline Phosphatase 155 U/L (38-126); Anion Gap 10 mmol/L; Blood Urea Nitrogen 8 mg/dL (7-17); Calcium 8.2 mg/dL (8.4-10.2); Carbon Dioxide 27 mmol/L (22-30); Chloride 102 mmol/L (98-107); Glucose 135 mg/dL (74-99); Magnesium 2.3 mg/dL (1.6-2.3); Non-African American GFR(MDRD) >60 (>60 ml/min/1.73 sqM); Potassium 3.9 mmol/L (3.5-5.1); Sodium 139 mmol/L (137-145); Total Bilirubin 5.1 mg/dL (0.2-1.3); Total Protein 7.6 g/dL (6.3-8.2)
[2016-10-06] MEDS: PANTOPRAZOLE 40 MG TABLET PO SCH (08:00)
[2016-10-06] MEDS: FUROSEMIDE 10 MG/ML 4 ML VIAL IV SCH (08:47)
[2016-10-06] MEDS: predniSONE 20 MG TAB PO SCH (08:47)
[2016-10-06] MEDS: POTASSIUM CHLORIDE ER 20 MEQ TAB.ER PO SCH (08:47)
[2016-10-06] MEDS: SPIRONOLACTONE 25 MG TAB PO SCH (08:47)
--- NOTE | 2016-10-06 09:36 | P.PN ---
Subjective Principal diagnosis: Ascites 46-year-old female with a history of heavy EtOH abuse admitted with abdominal distention new onset ascites. S/p therapeutic diagnostic paracentesis yesterday 2.8 L. Total bilirubin improved 5.1; prednisone started yesterday. Objective - Vital Signs Vital signs: Vital Signs Temp 97.2 F L 10/06/16 07:00 Pulse 76 10/06/16 07:00 Resp 20 10/06/16 07:00 BP 112/56 10/06/16 07:00 Pulse Ox 90 L 10/06/16 07:00 Intake & Output 10/05/16 10/06/16 10/06/16 18:59 06:59 18:59 Intake Total 2410 460 Balance 2410 460 Weight 71 kg 62 kg Intake: Intake, IV Titration 100 460 Amount Dextrose 5%-0.45% NaCl 1, 160 000 ml @ 20 mls/hr IV . Q24H YAN Rx#:[id number] Magnesium Sulfate-D5w Pmx 100 300 1 gm In Dextrose/Water 1 100ml.bag @ 100 mls/hr IVPB Q1H YAN Rx#: [id number] Blood Product 2310 Ffp 24 Cpd Unit 305 [id number] Ffp 24 Cpd Unit 327 [id number] Ffp 24 Cpd Unit 319 [id number] Ffp 24 Cpda Unit 202 [id number] Other: Voiding Method Toilet # Voids 1 2 # Bowel Movements 1 - Exam General appearance: The patient is alert, oriented, in no acute distress. Jaundice. HET: Head is normocephalic and atraumatic. Pupils are equal and reactive. Sclerae icterus. Oropharynx is clear without lesions. Neck: Supple without lymphadenopathy. Trachea midline. Heart: S1 S2. Regular rate and rhythm. Lungs: No crackles or wheezes are heard. Abdomen: Soft, nontender, mildy bloated with bowel sounds. No peritoneal signs. No palpable organomegaly or masses. Extremities: Normal skin color and turgor. No cyanosis, rash, ulceration, clubbing, or edema. Radial and pedal pulses are 2/4 bilaterally. Neurological: No focal deficits. Strength and sensation are grossly intact. - Labs CBC & Chem 7: 10/06/16 07:15 10/06/16 07:15 Labs: Abnormal Lab Results - Last 24 Hours (Table) 10/05/16 10/06/16 10/06/16 Range/Units 08:13 07:15 07:15 RBC 2.82 L (3.80-5.40) m/uL Hgb 9.8 L (11.4-16.0) gm/dL Hct 30.6 L (34.0-46.0) % MCV 108.5 H (80.0-100.0) fL RDW 15.8 H (11.5-15.5) % Plt Count 127 L (150-450) k/uL PT 18.8 H (9.0-12.0) sec Glucose (74-99) mg/dL Calcium (8.4-10.2) mg/dL Magnesium 1.4 L (1.6-2.3) mg/dL Total Bilirubin (0.2-1.3) mg/dL AST (14-36) U/L Alkaline Phosphatase (38-126) U/L Albumin (3.5-5.0) g/dL 10/06/16 Range/Units 07:15 RBC (3.80-5.40) m/uL Hgb (11.4-16.0) gm/dL Hct (34.0-46.0) % MCV (80.0-100.0) fL RDW (11.5-15.5) % Plt Count (150-450) k/uL PT (9.0-12.0) sec Glucose 135 H (74-99) mg/dL Calcium 8.2 L (8.4-10.2) mg/dL Magnesium (1.6-2.3) mg/dL Total Bilirubin 5.1 H (0.2-1.3) mg/dL AST 72 H (14-36) U/L Alkaline Phosphatase 155 H (38-126) U/L Albumin 2.9 L (3.5-5.0) g/dL Microbiology - Last 24 Hours (Table) 10/05/16 14:50 Gram Stain - Preliminary Ascites Fluid Body Fluid Culture - Preliminary 10/05/16 14:50 Anaerobic Culture - Preliminary Ascites Fluid Assessment and Plan (1) Alcoholic liver disease Status: Acute (2) ETOH abuse Status: Acute (3) Ascites Status: Acute (4) Coagulopathy Narrative/Plan: Secondary to underlying alcohol liver disease Status: Acute (5) Alcoholic hepatitis with ascites Status: Acute Plan: 1. Prednisone 40 mg daily x 30 days for acute alcohol hepatitis. 2. RTO 1 month. 3. Alcohol abstinence counseled. 4. Continue with supportive measures and diuretics. Recommend oral Lasix 20 mg daily and Aldactone 50 mg daily on discharge. 5. Low salt diet. Assessment and plan of care discussed with Dr. Jacobson.
[2016-10-06] MEDS ORDERED: POTASSIUM CHLORIDE ER 20 MEQ TAB.ER PO STA (11:05)
[2016-10-06 11:24] LABS: Manual Review Performed; Target Cells Present; Toxic Granulation Present
[2016-10-06] MEDS: FOLIC ACID 1 MG TAB PO SCH (11:49)
[2016-10-06] MEDS: SERTRALINE 25 MG TAB PO SCH (11:49)
[2016-10-06] MEDS: THIAMINE 100 MG TAB PO SCH (11:49)
[2016-10-06] MEDS: MULTIVITAMINS, THERA 1 EACH TAB PO SCH (11:49)
--- NOTE | 2016-10-07 16:36 | DS ---
DATE OF ADMISSION: 10/01/2016 DATE OF DISCHARGE: 10/06/2016 FINAL DIAGNOSES: 1. Acute ascites secondary to cirrhosis of liver possibly secondary to EtOH abuse. 2. Coagulopathy secondary to chronic liver secondary to EtOH. 3. Increased mean corpuscular volume possibly secondary to EtOH. 4. Increased alkaline phosphatase and AST. 5. Hyperbilirubinemia with elevated AST, possibly alcoholic hepatitis acute. 6. Increased alkaline phosphatase, hypoalbuminemia mild to moderate protein calorie malnutrition BMI 20.6 and hydropic gallbladder. 7. Thrombocytopenia secondary to EtOH abuse. 8. FULL CODE. DISCHARGE DISPOSITION: The patient will be discharged in stable condition with guarded prognosis. HISTORY OF PRESENT ILLNESS: This 43-year-old woman with past medical history of multiple medical problems including ascites and multiple other medical problems as mentioned earlier, possibly secondary to EtOH induced cirrhosis of the liver. Treated symptomatically. INR is 2. Patient had ascitic fluid aspiration about 2 liters, which was yellow in color noted. On exam alert, oriented. Vitals are stable. CARDIOVASCULAR: S1, S2. ABDOMEN: Soft. NERVOUS SYSTEM: No focal deficits. Patient is jaundiced. Lab-demarco, LFTs are showing bilirubin of 5.1, which is showing diminishing trends. DISCHARGE ADVICE: 1. Diet is cardiac. 2. Activity limited until follow-up. 3. Follow up with Dr. Jauregui as advised. 4. Gastroenterology follow up with Dr. Jamison Dockery in 2 to 3 days. 5. CBC and CMP. 6. No EtOH. 7. Attend AA or alcohol rehab. MEDICATION: 1. Folic acid 1 mg daily. 2. Lasix 20 mg daily. 3. Multivitamins 1 p.o. daily. 4. K-Dur 20 mEq p.o. q.a.m. 5. Zoloft 25 mg daily. 6. Aldactone 50 mg p.o. daily. 7. Thiamine 100 mg p.o. daily. 8. Prednisone 40 mg daily in a tapering dose for per Gastroenterology. Guarded prognosis. Once again, the patient is discharged in stable condition with guarded prognosis.
== END 2016-10-06 13:23 | disposition home or self-care (01) | DRG 433 ==
LOC: SUPCPDRO 15:22 → EC 15:22 → 4MS4W 17:24
PROVIDERS: ADMIT Hospitalist; ATTEND Hospitalist
PROC: 0W9G3ZZ Drainage of Peritoneal Cavity, Percutaneous Approach (ICD-10-PCS; principal; 2016-10-05)
DX: K70.31 Alcoholic cirrhosis of liver with ascites (principal); K82.1 Hydrops of gallbladder; K70.11 Alcoholic hepatitis with ascites; E44.0 Moderate protein-calorie malnutrition; D68.4 Acquired coagulation factor deficiency; D69.59 Other secondary thrombocytopenia; K72.90 Hepatic failure, unspecified without coma; F10.10 Alcohol abuse, uncomplicated; Z79.899 Other long term (current) drug therapy; Z68.20 Body mass index [BMI] 20.0-20.9, adult
CPT/HCPCS: 36415; 49083; 71020; 74176; 80053; 80074; 80306; 80320; 81001; 82042; 82140; 82550; 82553; 83520; 83690; 83735; 84100; 85025; 85610; 85730; 86850; 86900; 86901; 87070; 87075; 87086; 87205; 88108; 88305; 89050; 93005; 94760; 99285

== ENCOUNTER 2016-10-27 07:48 | Day surgery (SDC) | payer OTHER ==
[2016-10-27 08:33] VITALS: BP 129/77; PULSE 117; RESP 20
[2016-10-27 08:41] VITALS: TEMP 102.8
[2016-10-27 08:45] LABS: Anisocytosis Slight; Basophils # (A) 0.1 k/uL (0-0.2); Basophils % (A) 1 %; CH 36.2; CHCM 32.8; Eosinophils # (A) 0.3 k/uL (0-0.7); Eosinophils % (A) 3 %; HCT 36.5 % (34.0-46.0); HGB 11.7 gm/dL (11.4-16.0); Luc # (Auto) 0.06; Luc % (Auto) 1; Lymphocytes # (A) 1.7 k/uL (1.0-4.8); Lymphocytes % (A) 17 %; MCH 35.6 pg (25.0-35.0); MCV 111.2 fL (80.0-100.0); Macrocytosis Marked; Mean Platelet Volume 7.6; Monocytes # (A) 0.1 k/uL (0-1.0); Monocytes % (A) 1 %; Neutrophils # (A) 7.7 k/uL (1.3-7.7); Neutrophils % (A) 78 %; RBC 3.28 m/uL (3.80-5.40); RDW 16.8 % (11.5-15.5); WBC 9.9 k/uL (3.8-10.6); WBC (Perox) 9.78
[2016-10-27 08:49] LABS: Prothrombin Time 19.4 sec (9.0-12.0)
[2016-10-27 08:53] LABS: Blood Urea Nitrogen 14 mg/dL (7-17); Non-African American GFR(MDRD) >60 (>60 ml/min/1.73 sqM)
== END 2016-10-27 09:00 | disposition other institution (70) ==
LOC: RADPROMAIN 07:48
PROVIDERS: ATTEND Emergency Medicine
DX: R18.8 Other ascites (principal); R10.9 Unspecified abdominal pain; Z53.09 Procedure and treatment not carried out because of other contraindication
CPT/HCPCS: 36415; 82565; 84520; 85025; 85610

== ENCOUNTER 2016-10-27 09:08 | Inpatient (IN) | payer OTHER ==
[2016-10-27] MEDS ORDERED: HYDROmorphone 1 MG/ML 1 ML SYRINGE IVP STA (10:31)
[2016-10-27] MEDS ORDERED: FAMOTIDINE 20 MG/2 ML VIAL IV STA (10:31)
--- NOTE | 2016-10-27 10:34 | ED ---
General Adult HPI - General Chief complaint: Fever Stated complaint: Fever Time Seen by Provider: 10/27/16 10:18 Source: patient, family, RN/MD, RN notes reviewed Mode of arrival: wheelchair Limitations: no limitations - History of Present Illness Initial comments: Patient is a pleasant 46-year-old female presenting to the emergency department with abdominal distention. Patient to radiology department for paracentesis however they did not perform. They were concerned regarding INR being too high. Patient does have a history of alcoholic cirrhosis. Patient has had paracentesis done once previously. Patient does complain of abdominal discomfort. Patient also has fever started last night. Family member has cold symptoms and believes he gave it to her. Patient denies any rhinorrhea or cough. No dysuria. - Related Data Home Medications Medication Instructions Recorded Confirmed Potassium Chloride ER [K-Dur 20] 20 mg PO QAM 10/01/16 10/27/16 Sertraline [Zoloft] 25 mg PO DAILY@1200 10/01/16 10/27/16 Multivitamins, Thera [Multivitamin 1 tab PO DAILY@1200 10/21/16 10/27/16 (formulary)] Saline Nasal [place] 2 spray NASAL DAILY PRN 10/21/16 10/27/16 Phytonadione [Vitamin K] 1 mg PO DAILY 10/25/16 10/27/16 Hydrocodone/Acetaminophen [[place] 1 tab PO Q4HR PRN 10/27/16 10/27/16 5-325] traZODone HCL 50 mg PO HS 10/27/16 10/27/16 Previous Rx's Medication Instructions Recorded Folic Acid 1 mg PO DAILY@1200 #30 tab 10/06/16 Furosemide [Lasix] 20 mg PO DAILY #30 tab 10/06/16 Spironolactone [Aldactone] 50 mg PO DAILY #30 tab 10/06/16 Thiamine [Vitamin B-1] 100 mg PO DAILY #30 tab 10/06/16 predniSONE 40 mg PO DAILY #60 tab 10/06/16 Allergies Allergy/AdvReac Type Severity Reaction Status Date / Time No Known Allergies Allergy Verified 10/27/16 09:36 Review of Systems ROS Statement: Those systems with pertinent positive or pertinent negative responses have been documented in the HPI. ROS Other: All systems not noted in ROS Statement are negative. Constitutional: Reports: fever, chills Eyes: Denies: eye pain ENT: Denies: ear pain, throat pain Respiratory: Denies: cough Cardiovascular: Denies: chest pain Endocrine: Denies: fatigue Gastrointestinal: Reports: abdominal pain Genitourinary: Denies: dysuria Musculoskeletal: Denies: back pain Skin: Denies: rash Past Medical History Past Medical History: No Reported History Additional Past Medical History / Comment(s): enlarged liver History of Any Multi-Drug Resistant Organisms: None Reported Past Surgical History: Section Past Psychological History: No Psychological Hx Reported Smoking Status: Never smoker Past Alcohol Use History: Heavy Additional Past Alcohol Use History / Comment(s): NOt using an ETOH at all Past Drug Use History: None Reported - Past Family History Sister(s) Family Medical History: Congestive Heart Failure (CHF) Additional Family Medical History / Comment(s): mitral valve prolapse General Exam Limitations: no limitations General appearance: alert, in no apparent distress Head exam: Present: atraumatic Eye exam: Present: scleral icterus ENT exam: Present: normal oropharynx Neck exam: Present: normal inspection Respiratory exam: Present: normal lung sounds bilaterally Cardiovascular Exam: Present: tachycardia, systolic murmur (Patient states chronic) GI/Abdominal exam: Present: distended (Moderate to large amount of distention with ascites), tenderness (Mild diffuse tenderness), normal bowel sounds. Absent: guarding, rigid Extremities exam: Present: normal inspection Neurological exam: Present: alert Psychiatric exam: Present: normal affect, normal mood Skin exam: Absent: rash Course Vital Signs 10/27/16 10/27/16 09:10 11:20 Temperature 102.6 F H Pulse Rate 118 H 104 H Respiratory 20 18 Rate Blood Pressure 130/79 124/70 O2 Sat by Pulse 94 L 93 L Oximetry - Reevaluation(s) Reevaluation #1: 10/27/16 10:50 Case was discussed with Dr. Duarte, who will consult. She states IV Tylenol is okay here to does request FFP. 10/27/16 11:43 Case also discussed with Dr. Giordano, who will admit. Patient does meet sepsis criteria. Possible pneumonia and patient will be treated for so. Patient reevaluated. Patient and family updated. EKG Findings - EKG Comments: EKG Findings:: Sinus tachycardia 107. ME 126. QRS 90. QT 362. QTC 483. Left axis. Normal QRS. No acute ST change. Medical Decision Making - Lab Data Result diagrams: 10/27/16 09:10 10/27/16 09:10 Lab Results 10/27/16 10/27/16 10/27/16 Range/Units 09:10 09:10 09:10 WBC 11.6 H (3.8-10.6) k/uL RBC 3.12 L (3.80-5.40) m/uL Hgb 11.7 (11.4-16.0) gm/dL Hct 33.5 L (34.0-46.0) % MCV 107.2 H (80.0-100.0) fL MCH 37.5 H (25.0-35.0) pg MCHC 35.0 (31.0-37.0) g/dL RDW 16.6 H (11.5-15.5) % Plt Count 105 L (150-450) k/uL Neutrophils % 77 % Lymphocytes % 18 % Monocytes % 2 % Eosinophils % 2 % Basophils % 1 % Neutrophils # 8.9 H (1.3-7.7) k/uL Lymphocytes # 2.1 (1.0-4.8) k/uL Monocytes # 0.2 (0-1.0) k/uL Eosinophils # 0.2 (0-0.7) k/uL Basophils # 0.1 (0-0.2) k/uL Manual Slide Review Performed Anisocytosis Slight Macrocytosis Marked PT (9.0-12.0) sec INR (<1.1) APTT (22.0-30.0) sec Sodium 133 L (137-145) mmol/L Potassium 3.3 L (3.5-5.1) mmol/L Chloride 98 (98-107) mmol/L Carbon Dioxide 27 (22-30) mmol/L Anion Gap 8 mmol/L BUN 14 (7-17) mg/dL Creatinine 0.52 (0.52-1.04) mg/dL Est GFR (MDRD) Af Amer >60 (>60 ml/min/1.73 sqM) Est GFR (MDRD) Non-Af >60 (>60 ml/min/1.73 sqM) Glucose 65 L (74-99) mg/dL Plasma Lactic Acid Odell 1.8 (0.7-2.0) mmol/L Calcium 8.1 L (8.4-10.2) mg/dL Total Bilirubin 8.8 H (0.2-1.3) mg/dL AST 99 H (14-36) U/L ALT 84 H (9-52) U/L Alkaline Phosphatase 204 H (38-126) U/L Total Protein 7.1 (6.3-8.2) g/dL Albumin 2.8 L (3.5-5.0) g/dL 10/27/16 Range/Units 09:10 WBC (3.8-10.6) k/uL RBC (3.80-5.40) m/uL Hgb (11.4-16.0) gm/dL Hct (34.0-46.0) % MCV (80.0-100.0) fL MCH (25.0-35.0) pg MCHC (31.0-37.0) g/dL RDW (11.5-15.5) % Plt Count (150-450) k/uL Neutrophils % % Lymphocytes % % Monocytes % % Eosinophils % % Basophils % % Neutrophils # (1.3-7.7) k/uL Lymphocytes # (1.0-4.8) k/uL Monocytes # (0-1.0) k/uL Eosinophils # (0-0.7) k/uL Basophils # (0-0.2) k/uL Manual Slide Review Anisocytosis Macrocytosis PT 19.1 H (9.0-12.0) sec INR 2.0 (<1.1) APTT 24.6 (22.0-30.0) sec Sodium (137-145) mmol/L Potassium (3.5-5.1) mmol/L Chloride (98-107) mmol/L Carbon Dioxide (22-30) mmol/L Anion Gap mmol/L BUN (7-17) mg/dL Creatinine (0.52-1.04) mg/dL Est GFR (MDRD) Af Amer (>60 ml/min/1.73 sqM) Est GFR (MDRD) Non-Af (>60 ml/min/1.73 sqM) Glucose (74-99) mg/dL Plasma Lactic Acid Odell (0.7-2.0) mmol/L Calcium (8.4-10.2) mg/dL Total Bilirubin (0.2-1.3) mg/dL AST (14-36) U/L ALT (9-52) U/L Alkaline Phosphatase (38-126) U/L Total Protein (6.3-8.2) g/dL Albumin (3.5-5.0) g/dL - Radiology Data Radiology results: image reviewed (Two-view chest x-ray shows basilar atelectasis versus infiltrate) Critical Care Time Critical Care Time: Yes Total Critical Care Time: 33 Disposition Clinical Impression: Sepsis, Ascites Disposition: ADMITTED IP TO THIS [facility] Condition: Serious
[2016-10-27] MEDS ORDERED: MORPHINE SULFATE 4 MG/ML SYRINGE IVP STA (10:45)
[2016-10-27 10:48] LABS: Anisocytosis Slight; Basophils # (A) 0.1 k/uL (0-0.2); Basophils % (A) 1 %; CH 35.7; CHCM 33.4; Eosinophils # (A) 0.2 k/uL (0-0.7); Eosinophils % (A) 2 %; HCT 33.5 % (34.0-46.0); HDW 2.45; HGB 11.7 gm/dL (11.4-16.0); Immature Gran Flag Moderate; Luc # (Auto) 0.12; Luc % (Auto) 1; Lymphocytes # (A) 2.1 k/uL (1.0-4.8); Lymphocytes % (A) 18 %; MCH 37.5 pg (25.0-35.0); MCV 107.2 fL (80.0-100.0); Macrocytosis Marked; Mean Platelet Volume 7.5; Monocytes # (A) 0.2 k/uL (0-1.0); Monocytes % (A) 2 %; Neutrophils # (A) 8.9 k/uL (1.3-7.7); Neutrophils % (A) 77 %; RBC 3.12 m/uL (3.80-5.40); RDW 16.6 % (11.5-15.5); WBC 11.6 k/uL (3.8-10.6); WBC (Perox) 11.69
[2016-10-27] MEDS ORDERED: ACETAMINOPHEN IV (For NPO) 1,000 MG in SALINE 1 100ML.BAG IVPB STA (10:51)
[2016-10-27] MEDS ORDERED: cefTRIAXone 2,000 MG in SODIUM CHLORIDE 0.9% 100 ML IVPB STA (10:51)
[2016-10-27 11:01] LABS: Manual Review Performed; Partial Thromboplastin Time 24.6 sec (22.0-30.0); Prothrombin Time 19.1 sec (9.0-12.0)
[2016-10-27 11:08] LABS: ALT 84 U/L (9-52); AST 99 U/L (14-36); Alkaline Phosphatase 204 U/L (38-126); Anion Gap 8 mmol/L; Blood Urea Nitrogen 14 mg/dL (7-17); Calcium 8.1 mg/dL (8.4-10.2); Carbon Dioxide 27 mmol/L (22-30); Chloride 98 mmol/L (98-107); Glucose 65 mg/dL (74-99); Non-African American GFR(MDRD) >60 (>60 ml/min/1.73 sqM); Potassium 3.3 mmol/L (3.5-5.1); Sodium 133 mmol/L (137-145); Total Bilirubin 8.8 mg/dL (0.2-1.3); Total Protein 7.1 g/dL (6.3-8.2)
--- NOTE | 2016-10-27 11:13 | XR ---
EXAMINATION TYPE: XR chest 2V DATE OF EXAM: 10/27/2016 11:07 AM COMPARISON: History of ascites and cirrhosis presents with fever HISTORY: Chest x-ray October 01, 2016. TECHNIQUE: Frontal and lateral views of the chest are obtained. FINDINGS: There is poor inspiration with patchy bibasilar atelectasis and/or infiltrate. The cardia c silhouette size is within normal limits. The osseous structures are intact. IMPRESSION: Poor inspiration with new patchy bibasilar atelectasis and/or infiltrate.
[2016-10-27] MEDS ORDERED: AZITHROMYCIN 500 MG in SODIUM CHLORIDE 0.9% 250 ML IVPB STA (11:45)
[2016-10-27] MEDS ORDERED: PNEUMONIA PROTOCOL UTILIZED 1 EACH MISC PO PRN (11:45)
[2016-10-27] MEDS ORDERED: NALOXONE 0.4 MG/ML 1 ML VIAL IV PRN (11:48)
[2016-10-27] MEDS ORDERED: ACETAMINOPHEN TAB 325 MG TAB PO PRN (11:48)
[2016-10-27] MEDS ORDERED: PHYTONADIONE ORAL 5 MG/5 ML ORAL.SYRG PO STA (11:49)
[2016-10-27] MEDS: SODIUM CHLORIDE 0.9% 1,000 ML IV SCH (12:00)
[2016-10-27 12:14] LABS: Appearance,Urine Clear (Clear); Bilirubin,Urine 1+ (Negative); Glucose,Urine (UA) Negative (Negative); Ketones,Urine Negative (Negative); Leukocyte Esterase,Urine Negative (Negative); Nitrite,Urine Negative (Negative); PH, Urine 5.5 (5.0-8.0); Protein,Urine Trace (Negative); Specific Gravity,Urine 1.017 (1.001-1.035); UA Billing (MACRO vs. MICRO) CHEM
[2016-10-27] MEDS: MIDODRINE 5 MG TAB PO SCH (18:01)
[2016-10-27] MEDS: metroNIDAZOLE-NS PMX 500 MG in SALINE 1 100ML.BAG IVPB SCH (18:01)
[2016-10-27] MEDS ORDERED: SODIUM CHLORIDE 0.65% NASAL SPRAY 44 ML BTL NASAL PRN (18:32)
--- NOTE | 2016-10-27 18:39 | P.HPIM ---
History of Present Illness H&P Date: 10/27/16 46-year-old female with history of alcoholic cirrhosis currently maintained on Lasix milligrams by mouth twice a day and aspart elective 50 mg by mouth daily comes in to the hospital with complaints of progressive worsening of pain in her abdomen associated with distention. However patient noted multiple episodes of fevers during the same period of time hence was admitted to the hospital. Patient apparently has to episodes of paracentesis so far. Including one today. Patient was noted to have liver cirrhosis secondary to alcohol use has not had any intake and over 45 days according to her. Patient states that over the last few days her belly has been progressively distended and was associated with the pain. States that she has had a fever at home on admission patient was also noted to have a fever greater than 101.5 in the hospital. Patient's INR was elevated did receive FFP and thereafter underwent 3 L of fluid removal from the abdomen. Currently states that she is feeling better. However apparently during the period of being febrile patient was confused according to the family member that was at bedside. States that she is slightly improved however has tenderness to palpation of her belly. Review of Systems All systems: negative (Noted in HPI) Past Medical History Past Medical History: Liver Disease Additional Past Medical History / Comment(s): enlarged liver, alcoholic cirrhosis. History of Any Multi-Drug Resistant Organisms: None Reported Past Surgical History: Section Additional Past Surgical History / Comment(s): Paracentesis Additional Past Anesthesia/Blood Transfusion Reaction / Comment(s): Pt has never had general anesthesia. Past Psychological History: Depression Additional Psychological History / Comment(s): Pt resides with nonfamily member. She is independent. Smoking Status: Never smoker Past Alcohol Use History: Heavy Additional Past Alcohol Use History / Comment(s): Pt states she has not drank alcohol for 45 days. Past Drug Use History: None Reported - Past Family History Sister(s) Family Medical History: Congestive Heart Failure (CHF) Additional Family Medical History / Comment(s): mitral valve prolapse Mother Family Medical History: Eye Disorder Additional Family Medical History / Comment(s): Glaucoma, aneurysm-pt does not know location. Father Family Medical History: No Reported History Additional Family Medical History / Comment(s): Father is healthy Medications and Allergies Home Medications Medication Instructions Recorded Confirmed Type Potassium Chloride ER [K-Dur 20] 20 mg PO QAM 10/01/16 10/27/16 History Sertraline [Zoloft] 25 mg PO DAILY@1200 10/01/16 10/27/16 History Multivitamins, Thera [Multivitamin 1 tab PO DAILY@1200 10/21/16 10/27/16 History (formulary)] Saline Nasal [place] 2 spray NASAL DAILY PRN 10/21/16 10/27/16 History Phytonadione [Vitamin K] 1 mg PO DAILY 10/25/16 10/27/16 History Hydrocodone/Acetaminophen [[place] 1 tab PO Q4HR PRN 10/27/16 10/27/16 History 5-325] traZODone HCL 50 mg PO HS 10/27/16 10/27/16 History Allergies Allergy/AdvReac Type Severity Reaction Status Date / Time No Known Allergies Allergy Verified 10/27/16 09:36 Physical Exam Vitals: Vital Signs Temp Pulse Pulse Resp BP BP Pulse Ox 10/27/16 17:52 108 H 18 103/55 94 L 10/27/16 16:45 95 10/27/16 16:42 98.6 F 101 H 18 87/52 10/27/16 15:42 98 18 96/61 92 L 10/27/16 15:12 100 16 92/58 93 L 10/27/16 15:02 98.7 F 100 18 91/61 93 L 10/27/16 14:58 98.7 F 94 18 95/60 92 L 10/27/16 14:15 98.4 F 96 18 93/62 95 10/27/16 14:04 98.6 F 101 H 18 93/60 10/27/16 13:39 97.8 F 100 16 101/58 96 10/27/16 13:34 102 H 18 101/58 95 10/27/16 13:20 99.2 F 100 18 98/54 10/27/16 13:00 78 18 109/62 97 10/27/16 12:36 107 H 18 95 10/27/16 12:26 100.9 F H 10/27/16 12:06 108 H 20 99/62 100 Intake and Output 10/27/16 10/27/16 10/27/16 06:59 14:59 22:59 Intake Total 312 446 Balance 312 446 Intake: Oral 125 Blood Product 312 321 Ffp 24 Cpd Unit 312 [id number] Ffp 24 Cpd Unit 321 [id number] Physical exam Gen. appearance oriented 3 in no distress Neck is supple no JVD Lungs good air entry clear to auscultation no rhonchi or wheezing Heart S1-S2 heard regular rate and rhythm no murmurs appreciated Abdomen distended no organomegaly noted tender to palpation diffusely Neurologically cranial nerves II-12 grossly intact no focal motor or sensory deficits noted Skin diffuse jaundice noted spider angiomata noted on the chest Conjunctival yellowish discoloration Results CBC & Chem 7: 10/27/16 09:10 10/27/16 09:10 Labs: Abnormal Lab Results - Last 24 Hours (Table) 10/27/16 10/27/16 Range/Units 11:49 14:30 Plasma Lactic Acid Odell 2.8 H* (0.7-2.0) mmol/L Urine Protein Trace H (Negative) Urine Bilirubin 1+ H (Negative) Thrombosis Risk Factor Assmnt - Choose All That Apply Any of the Below Risk Factors Present?: Yes Each Factor Represents 1 point: Age 41-60 years, Sepsis (< 1month) Other Risk Factors: No Other congenital or acquired thrombophilia - If yes, enter type in comment: No Thrombosis Risk Factor Assessment Total Risk Factor Score: 2 Thrombosis Risk Factor Assessment Level: Low Risk Assessment and Plan Plan: #1 fever of unknown origin rule out spontaneous back to peritonitis in a patient with liver cirrhosis #2 chronic thrombocytopenia secondary to alcohol use #3 slightly decompensated liver cirrhosis #4 hypokalemia #5 acute metabolic encephalopathy #6 depression Coagulopathy secondary to above Plan Patient will be started on Lasix 40 minutes IV twice a day and spironolactone 50 mg. This will be changed over to oral medications. Patient's blood pressure was a borderline this is commonly seen in these patient population. Patient will be started on Midrin family grams 3 times a day. Patient will be started also on Rocephin and Flagyl to cover for intra-abdominal pathology. We' ll await fluid results if patient does have a neutrophil count greater than 250 that is diagnostic of SBP. Patient is to continue fluid resections of 1.5 L. Protein intake. Continue vitamin K at this time.
[2016-10-27 21:24] LABS: Glucose,Whole Blood 151 mg/dL (75-99)
[2016-10-27] MEDS ORDERED: SODIUM CHLORIDE 0.9% 1,000 ML IV ONE (21:30)
[2016-10-27] MEDS: SODIUM CHLORIDE 0.9% 250 ML IV SCH ×4 (23:11→23:14)
[2016-10-27] MEDS: cefTRIAXone 2,000 MG in SODIUM CHLORIDE 0.9% 100 ML IVPB SCH (23:32)
[2016-10-27] MEDS: FUROSEMIDE 10 MG/ML 4 ML VIAL IV SCH (23:33)
[2016-10-28] MEDS: cefTRIAXone 2,000 MG in SODIUM CHLORIDE 0.9% 100 ML IVPB SCH ×3 (00:30→20:55)
[2016-10-28] MEDS: MORPHINE SULFATE 4 MG/ML SYRINGE IV PRN ×5 (00:40→23:17)
[2016-10-28] MEDS: metroNIDAZOLE-NS PMX 500 MG in SALINE 1 100ML.BAG IVPB SCH ×4 (01:50→23:16)
[2016-10-28 03:06] LABS: RBC, Body Fluid 19 /uL
[2016-10-28 03:08] LABS: Body Fluid Comment Few Mesothelial
[2016-10-28 05:22] LABS: INR 2.2 (<1.1); Prothrombin Time 20.9 sec (9.0-12.0)
[2016-10-28 05:23] LABS: ALT 67 U/L (9-52); AST 73 U/L (14-36); Alkaline Phosphatase 122 U/L (38-126); Anion Gap 5 mmol/L; Blood Urea Nitrogen 14 mg/dL (7-17); Calcium 7.8 mg/dL (8.4-10.2); Carbon Dioxide 29 mmol/L (22-30); Chloride 99 mmol/L (98-107); Glucose 147 mg/dL (74-99); Magnesium 1.7 mg/dL (1.6-2.3); Non-African American GFR(MDRD) >60 (>60 ml/min/1.73 sqM); Phosphorous 2.8 mg/dL (2.5-4.5); Potassium 3.3 mmol/L (3.5-5.1); Sodium 133 mmol/L (137-145); Total Bilirubin 7.3 mg/dL (0.2-1.3); Total Protein 6.1 g/dL (6.3-8.2)
[2016-10-28 05:29] LABS: Anisocytosis Slight; Basophils % (A) 0 %; CH 35.2; CHCM 32.8; Eosinophils # (A) 0.2 k/uL (0-0.7); Eosinophils % (A) 2 %; HDW 2.38; Luc # (Auto) 0.17; Luc % (Auto) 1; Lymphocytes # (A) 1.3 k/uL (1.0-4.8); Lymphocytes % (A) 10 %; MCH 37.3 pg (25.0-35.0); MCHC 34.5 g/dL (31.0-37.0); Macrocytosis Marked; Mean Platelet Volume 7.4; Monocytes # (A) 0.5 k/uL (0-1.0); Monocytes % (A) 4 %; Neutrophils # (A) 10.8 k/uL (1.3-7.7); Neutrophils % (A) 83 %; RBC 2.68 m/uL (3.80-5.40); RDW 16.1 % (11.5-15.5); WBC 12.9 k/uL (3.8-10.6); WBC (Perox) 12.82
[2016-10-28] MEDS ORDERED: Potassium Replacement Protocol 1 EACH MISC MISCELLANE PRN (05:48)
[2016-10-28] MEDS ORDERED: Magnesium Replacement Protocol 1 EACH MISC MISCELLANE PRN (05:48)
[2016-10-28 05:57] LABS: Manual Review Performed; Target Cells Present
[2016-10-28] MEDS: POTASSIUM CHLORIDE ER 20 MEQ TAB.ER PO SCH ×2 (06:29→09:09)
[2016-10-28] MEDS: MAGNESIUM SULFATE-D5W PMX 1 GM in DEXTROSE/WATER 1 100ML.BAG IVPB SCH ×2 (06:29→09:09)
--- NOTE | 2016-10-28 07:01 | XR ---
EXAMINATION TYPE: XR chest 1V DATE OF EXAM: 10/28/2016 6:51 AM COMPARISON: 10/27/2016 HISTORY: Severe TECHNIQUE: Single frontal view of the chest is obtained. FINDINGS: Small left pleural effusion and tiny right effusion suspected with basilar consolidation o n the left. No pneumothorax. Heart size prominent but stable. Limited inspiration limits exam. IMPRESSION: 1. Small left pleural effusion with basilar atelectasis or infiltrate stable.
--- NOTE | 2016-10-28 07:06 | US ---
Therapeutic paracentesis. CLINICAL HISTORY: Ascites The procedure was discussed with the patient. The risks, complications including life-threatening ble eding, benefits, and alternatives were discussed and any questions were answered. Informed consent wa s obtained. The patient was placed supine on the ultrasound table and prepped and draped in the usual sterile fashion. All elements of maximal barrier technique were utilized. Under ultrasound guidance, access into the right lower quadrant was obtained, via the paracentesis catheter system and direct ultrasound guidanc e. Approximately 3.2 liters of straw-colored fluid was removed. The patient was stable throughout the pr ocedure and remained stable upon discharge from Department of Radiology. IMPRESSION: Successful therapeutic paracentesis under ultrasound guidance.
[2016-10-28] MEDS ORDERED: AZITHROMYCIN 500 MG TAB PO SCH (09:00)
[2016-10-28] MEDS ORDERED: PANTOPRAZOLE 40 MG/10 ML VIAL IV SCH (09:00)
[2016-10-28] MEDS: MIDODRINE 5 MG TAB PO SCH ×3 (09:09→20:49)
[2016-10-28] MEDS: FUROSEMIDE 10 MG/ML 4 ML VIAL IV SCH ×2 (09:10→20:55)
[2016-10-28] MEDS: SPIRONOLACTONE 25 MG TAB PO SCH (09:10)
[2016-10-28] MEDS: THIAMINE 100 MG TAB PO SCH (09:11)
--- NOTE | 2016-10-28 10:44 | CDI ---
In responding to this query, please exercise your independent professional judgment. The [facility] Coding Staff and Clinical Documentation Specialists appreciate your assistance in clarifying documentation, maintaining compliance with coding guidelines, accurately documenting patients condition and capturing severity of illness. The fact that a question is asked does not imply that any particular answer is desired or expected. Communication forms are a method of clarifying documentation and are not made part of the Legal Health Record. Thank you in advance for your clarification. Last Revision, May 2015 Stephane Jimenez [address] [place] [address] Documentation Clarification Form Date: 10/28/2016 9:29:00 AM From: Gurvinder Larry, RN, BSN, CDI Admit Date: 10/27/2016 11:47:00 AM Patient Name: Rima Rushing Visit Number: [id number] Dr. Wilmer Merlos: "Sepsis" is documented in the ED impressions. Per the ED physician, case was discussed with Dr. Giordaon, who will admit, patient does meet sepsis criteria, possible PNA and patient will be treated for so". History/Risk Factors: 40 yo female with a history of alcoholic cirrhosis presents with c/o abdominal distention and fever. Per her family, the patient was confused during the period of being febrile. Clinical Indicators: WBC: 11.6 Lactic acid: 2.8-4.4 Urine culture: pending Vitals signs on admission: 130/79, 118, 20, 102.6, 94% RA Other Clinical Indicators: CXR: poor inspiration w/new patchy bibasilar atelectasis and/or infiltrate Repeat CXR: small left pleural effusion w/basilar atelectasis or infiltrate- stable Treatment: Tylenol Antibiotics: Rocephin, Flagyl IV Bolus: 1L fluid bolus Other: Paracentesis In your professional opinion, can you please clarify if these findings signify one of the following conditions, whether the condition is POA, and cause, if known? SIRS, without underlying infectious process Sepsis * Identify the (suspected) organism Severe Sepsis Unable to determine Other, please specify Sepsis ruled out * Link or clarify if there is associated (due to/with): - Organ failure - Shock SIRS Criteria: 2 or more of the following may indicate SIRS Temperature < 96.8F(36C) or > 101.0F (38C) Heart Rate > 90 bpm Respiratory Rate > 20 breaths/min or PaCO2 < 32 mmHg White Blood Cell Count > 12,000 or < 4,000 cells/mm3 or > 10% bands Please document in your progress notes and discharge summary in order to capture severity of illness and risk of mortality. Include clinical findings that support your diagnosis. FYI: Press F11 to launch patient chart. Place X here if this finding has no clinical significance, is not applicable or if you are not able to provide any additional documentation. MTDD
[2016-10-28 10:47] VITALS: BMI 23.1
[2016-10-28] MEDS: SERTRALINE 25 MG TAB PO SCH (12:39)
[2016-10-28] MEDS: SODIUM CHLORIDE 0.9% 1,000 ML IV SCH (12:40)
--- NOTE | 2016-10-28 14:43 | P.CNPUL ---
History of Present Illness Consult date: 10/28/16 Requesting physician: Wilmer Merlos Reason for consult: other (Possible abdominal sepsis) Chief complaint: Fever and abdominal discomfort with increased abdominal distention History of present illness: This is a 46-year-old female with history of alcoholic cirrhosis, recurrent ascites, patient presented to the hospital with a few days' history of low- grade fever, abdominal distention, and some abdominal discomfort. Patient was admitted with ascites, and she underwent paracentesis were and just over 3 L of fluid were drained from the abdominal cavity. Patient was also noted to have a temp as high as 101.5 upon admission. And she was also noted to have elevated INR requiring fresh frozen plasma prior to paracentesis. Plasma lactic acid was 4.4 on admission,, patient was placed on antibiotics for presumptive sepsis/ spontaneous bacterial peritonitis, and follow-up lactic acid was 1.6. Patient was log on Flagyl and Rocephin. Transaminases were also noted to be elevated. Considering the patient's presentation of sepsis and spontaneous bacterial peritonitis, I was asked to see her on consultation in the intensive care unit. Upon my evaluation, patient was noted to be hemodynamically stable, comfortable, and in no distress. Blood cultures so far are negative. Gram stain on the peritoneal fluid was negative but it showed moderate polymorphonuclear leukocytes. Urine culture is pending presently the patient denies any fever, no chills, no headaches no blurred vision no dizziness, no chest pain or shortness of breath. She does have abdominal distention and abdominal tenderness. Review of Systems 14 point review of systems were obtained. For pertinent positives and negatives in HPI. Past Medical History Past Medical History: Liver Disease Additional Past Medical History / Comment(s): enlarged liver, alcoholic cirrhosis. History of Any Multi-Drug Resistant Organisms: None Reported Past Surgical History: Section Additional Past Surgical History / Comment(s): Paracentesis Additional Past Anesthesia/Blood Transfusion Reaction / Comment(s): Pt has never had general anesthesia. Past Psychological History: Depression Additional Psychological History / Comment(s): Pt resides with nonfamily member. She is independent. Smoking Status: Never smoker Past Alcohol Use History: Heavy Additional Past Alcohol Use History / Comment(s): Pt states she has not drank alcohol for 45 days. Past Drug Use History: None Reported - Past Family History Sister(s) Family Medical History: Congestive Heart Failure (CHF) Additional Family Medical History / Comment(s): mitral valve prolapse Mother Family Medical History: Eye Disorder Additional Family Medical History / Comment(s): Glaucoma, aneurysm-pt does not know location. Father Family Medical History: No Reported History Additional Family Medical History / Comment(s): Father is healthy Medications and Allergies Home Medications Medication Instructions Recorded Confirmed Type Potassium Chloride ER [K-Dur 20] 20 mg PO QAM 10/01/16 10/27/16 History Sertraline [Zoloft] 25 mg PO DAILY@1200 10/01/16 10/27/16 History Multivitamins, Thera [Multivitamin 1 tab PO DAILY@1200 10/21/16 10/27/16 History (formulary)] Saline Nasal [place] 2 spray NASAL DAILY PRN 10/21/16 10/27/16 History Phytonadione [Vitamin K] 1 mg PO DAILY 10/25/16 10/27/16 History Hydrocodone/Acetaminophen [[place] 1 tab PO Q4HR PRN 10/27/16 10/27/16 History 5-325] traZODone HCL 50 mg PO HS 10/27/16 10/27/16 History Allergies Allergy/AdvReac Type Severity Reaction Status Date / Time No Known Allergies Allergy Verified 10/27/16 09:36 Physical Exam Vitals: Vital Signs Temp Pulse Pulse Resp BP BP Pulse Ox 10/28/16 12:00 98.4 F 91 20 96/56 10/28/16 11:00 90 18 98/59 97 10/28/16 10:00 22 103/61 10/28/16 09:00 92 20 94/58 93 L 10/28/16 08:00 98.5 F 97 18 89/61 94 L 10/28/16 07:00 88 15 95/56 93 L 10/28/16 06:00 90 16 95/56 93 L 10/28/16 05:00 94 16 98/54 93 L 10/28/16 04:00 98.7 F 92 19 99/61 93 L 10/28/16 03:00 93 16 99/52 94 L 10/28/16 02:30 102 H 26 H 102/56 90 L 10/28/16 02:00 98 23 102/56 92 L 10/28/16 01:30 98 13 93 L 10/28/16 01:00 102 H 16 102/60 92 L 10/28/16 00:30 99 23 93 L 10/28/16 00:00 98.9 F 99 16 104/61 92 L 10/27/16 23:00 127 H 51 H 104/61 95 10/27/16 22:30 100 23 95 10/27/16 22:00 106 H 18 103/61 95 10/27/16 21:30 99.7 F H 108 H 29 H 111/62 95 10/27/16 21:24 112 H 33 H 10/27/16 20:41 92 L 10/27/16 19:53 97.6 F 108 H 20 97/57 92 L 10/27/16 17:52 108 H 18 103/55 94 L 10/27/16 16:45 95 10/27/16 16:42 98.6 F 101 H 18 87/52 10/27/16 15:42 98 18 96/61 92 L 10/27/16 15:12 100 16 92/58 93 L 10/27/16 15:02 98.7 F 100 18 91/61 93 L 10/27/16 14:58 98.7 F 94 18 95/60 92 L Intake and Output 10/27/16 10/28/16 10/28/16 22:59 06:59 14:59 Intake Total 446 460 540 Output Total 200 Balance 446 260 540 Intake: IV 340 440 Magnesium Sulfate-D5w Pmx 200 1 gm In Dextrose/Water 1 100ml.bag @ 100 mls/hr IVPB Q1H YAN Rx#: [id number] Sodium Chloride 0.9% 1, 140 40 000 ml @ 20 mls/hr IV . Q24H YAN Rx#:[id number] cefTRIAXone 2,000 mg In 100 200 Sodium Chloride 0.9% 100 ml @ 100 mls/hr IVPB Q12HR YAN Rx#:[id number] metroNIDAZOLE-NS PMX 500 100 mg In Saline 1 100ml.bag @ 100 mls/hr IVPB Q8HR YAN Rx#:[id number] Intake, IV Titration 100 Amount Magnesium Sulfate-D5w Pmx 100 1 gm In Dextrose/Water 1 100ml.bag @ 100 mls/hr IVPB Q1H YAN Rx#: [id number] Oral 125 120 Blood Product 321 Ffp 24 Cpd Unit 321 [id number] Output: Urine 200 Other: Voiding Method Toilet Toilet Toilet # Voids 1 1 Weight 71 kg 71 kg Patient Weight 10/29/16 06:59 Weight 71 kg Physical Exam: Revealed a 56-year-old female in no distress. HEENT:[Neck is supple.] [No neck masses.] [No thyromegaly.] [No JVD.] Positive yellowish discoloration of sclerae noted Chest: [Clear throughout, no crackles, no rhonchi, no wheezes.] Cardiac Exam: [Normal S1 and S2, no S3 gallop, no murmur.] Abdomen: [Distended, slightly tender, positive spider angiomata] Extremities: [No clubbing, no edema, no cyanosis.] Neurological Exam: [No focal neurologic deficit.] Results - Laboratory Findings CBC and BMP: 10/28/16 04:39 10/28/16 04:39 PT/INR, D-dimer PT 20.9 sec (9.0-12.0) H 10/28/16 04:39 INR 2.2 (<1.1) 10/28/16 04:39 Abnormal lab findings: Abnormal Labs 10/27/16 10/27/16 10/27/16 11:49 14:30 18:23 WBC RBC Hgb Hct MCV MCH RDW Plt Count Neutrophils # PT Sodium Potassium Creatinine Glucose POC Glucose (mg/dL) Plasma Lactic Acid Odell 2.8 H* 4.4 H* Calcium Total Bilirubin AST ALT Total Protein Albumin Urine Protein Trace H Urine Bilirubin 1+ H 10/27/16 10/28/16 10/28/16 21:22 04:39 04:39 WBC 12.9 H RBC 2.68 L Hgb 10.0 L D Hct 29.0 L MCV 108.0 H MCH 37.3 H RDW 16.1 H Plt Count 69 L Neutrophils # 10.8 H PT 20.9 H Sodium Potassium Creatinine Glucose POC Glucose (mg/dL) 151 H Plasma Lactic Acid Odell Calcium Total Bilirubin AST ALT Total Protein Albumin Urine Protein Urine Bilirubin 10/28/16 04:39 WBC RBC Hgb Hct MCV MCH RDW Plt Count Neutrophils # PT Sodium 133 L Potassium 3.3 L Creatinine 0.50 L Glucose 147 H POC Glucose (mg/dL) Plasma Lactic Acid Odell Calcium 7.8 L Total Bilirubin 7.3 H AST 73 H ALT 67 H Total Protein 6.1 L Albumin 2.4 L Urine Protein Urine Bilirubin - Diagnostic Findings Chest x-ray: image reviewed (Bibasilar atelectasis) Assessment and Plan Plan: #1 strongly suspect acute spontaneous bacterial peritonitis and sepsis #2 chronic thrombocytopenia secondary to alcohol use #3 slightly decompensated liver cirrhosis #4 hypokalemia #5 acute metabolic encephalopathy #6 depression #7 Coagulopathy secondary to liver disease Recommendation: Continue present treatment plan including antibiotics, diuretics , consider repeat paracentesis and the patient continues to have worsening abdominal distention. Consider infectious disease consultation. Time with Patient: Greater than 30
--- NOTE | 2016-10-28 16:44 | P.PN ---
Subjective 46-year-old female with history of alcoholic cirrhosis currently maintained on Lasix milligrams by mouth twice a day and aspart elective 50 mg by mouth daily comes in to the hospital with complaints of progressive worsening of pain in her abdomen associated with distention. However patient noted multiple episodes of fevers during the same period of time hence was admitted to the hospital. Patient apparently has to episodes of paracentesis so far. Including one today. Patient was noted to have liver cirrhosis secondary to alcohol use has not had any intake and over 45 days according to her. Patient states that over the last few days her belly has been progressively distended and was associated with the pain. States that she has had a fever at home on admission patient was also noted to have a fever greater than 101.5 in the hospital. Patient's INR was elevated did receive FFP and thereafter underwent 3 L of fluid removal from the abdomen. Currently states that she is feeling better. However apparently during the period of being febrile patient was confused according to the family member that was at bedside. States that she is slightly improved however has tenderness to palpation of her belly. 10/28/2016 Patient apparently had a slightly low blood pressure was thereafter triaged to the intensive care unit for closer monitoring. Today patient complains of abdominal pain diffuse in nature no fevers chills nausea vomiting or diarrhea. Objective - Vital Signs Vital signs: Vital Signs Temp 98.4 F 10/28/16 12:00 Pulse 91 10/28/16 12:00 Resp 20 10/28/16 12:00 BP 96/56 10/28/16 12:00 Pulse Ox 97 10/28/16 11:00 Intake & Output 10/27/16 10/28/16 10/28/16 18:59 06:59 18:59 Intake Total 758 460 540 Output Total 200 Balance 758 260 540 Weight 71 kg 71 kg Intake: IV 340 440 Magnesium Sulfate-D5w Pmx 200 1 gm In Dextrose/Water 1 100ml.bag @ 100 mls/hr IVPB Q1H YAN Rx#: [id number] Sodium Chloride 0.9% 1, 140 40 000 ml @ 20 mls/hr IV . Q24H YAN Rx#:[id number] cefTRIAXone 2,000 mg In 100 200 Sodium Chloride 0.9% 100 ml @ 100 mls/hr IVPB Q12HR YAN Rx#:[id number] metroNIDAZOLE-NS PMX 500 100 mg In Saline 1 100ml.bag @ 100 mls/hr IVPB Q8HR YAN Rx#:[id number] Intake, IV Titration 100 Amount Magnesium Sulfate-D5w Pmx 100 1 gm In Dextrose/Water 1 100ml.bag @ 100 mls/hr IVPB Q1H YAN Rx#: [id number] Oral 125 120 Blood Product 633 Ffp 24 Cpd Unit 312 [id number] Ffp 24 Cpd Unit 321 [id number] Output: Urine 200 Other: Voiding Method Toilet Toilet # Voids 1 1 - Exam Physical exam Gen. appearance oriented 3 in no distress Neck is supple no JVD Lungs good air entry clear to auscultation no rhonchi or wheezing Heart S1-S2 heard regular rate and rhythm no murmurs appreciated Abdomen diffusely tender distended dull to percussion Neurologically cranial nerves II-12 grossly intact no focal motor or sensory deficits noted Skin no abnormalities appreciated - Labs CBC & Chem 7: 10/28/16 04:39 10/28/16 04:39 Labs: Abnormal Lab Results - Last 24 Hours (Table) 10/27/16 10/27/16 10/28/16 Range/Units 18:23 21:22 04:39 WBC 12.9 H (3.8-10.6) k/uL RBC 2.68 L (3.80-5.40) m/uL Hgb 10.0 L D (11.4-16.0) gm/dL Hct 29.0 L (34.0-46.0) % MCV 108.0 H (80.0-100.0) fL MCH 37.3 H (25.0-35.0) pg RDW 16.1 H (11.5-15.5) % Plt Count 69 L (150-450) k/uL Neutrophils # 10.8 H (1.3-7.7) k/uL PT (9.0-12.0) sec Sodium (137-145) mmol/L Potassium (3.5-5.1) mmol/L Creatinine (0.52-1.04) mg/dL Glucose (74-99) mg/dL POC Glucose (mg/dL) 151 H (75-99) mg/dL Plasma Lactic Acid Odell 4.4 H* (0.7-2.0) mmol/L Calcium (8.4-10.2) mg/dL Total Bilirubin (0.2-1.3) mg/dL AST (14-36) U/L ALT (9-52) U/L Total Protein (6.3-8.2) g/dL Albumin (3.5-5.0) g/dL 10/28/16 10/28/16 Range/Units 04:39 04:39 WBC (3.8-10.6) k/uL RBC (3.80-5.40) m/uL Hgb (11.4-16.0) gm/dL Hct (34.0-46.0) % MCV (80.0-100.0) fL MCH (25.0-35.0) pg RDW (11.5-15.5) % Plt Count (150-450) k/uL Neutrophils # (1.3-7.7) k/uL PT 20.9 H (9.0-12.0) sec Sodium 133 L (137-145) mmol/L Potassium 3.3 L (3.5-5.1) mmol/L Creatinine 0.50 L (0.52-1.04) mg/dL Glucose 147 H (74-99) mg/dL POC Glucose (mg/dL) (75-99) mg/dL Plasma Lactic Acid Odell (0.7-2.0) mmol/L Calcium 7.8 L (8.4-10.2) mg/dL Total Bilirubin 7.3 H (0.2-1.3) mg/dL AST 73 H (14-36) U/L ALT 67 H (9-52) U/L Total Protein 6.1 L (6.3-8.2) g/dL Albumin 2.4 L (3.5-5.0) g/dL Microbiology - Last 24 Hours (Table) 10/27/16 14:21 Blood Culture - Preliminary Blood No Growth after 24 hours 10/27/16 15:10 Gram Stain - Preliminary Peritoneal Fluid Body Fluid Culture - Preliminary 10/27/16 15:10 Anaerobic Culture - Preliminary Peritoneal Fluid 10/27/16 11:49 Urine Culture - Preliminary Urine,Catheterized Assessment and Plan Plan: #1 sepsis secondary to spontaneous bacterial peritonitis #2 chronic thrombocytopenia secondary to alcohol use #3 slightly decompensated liver cirrhosis #4 hypokalemia #5 acute metabolic encephalopathy #6 depression Coagulopathy secondary to above Plan continue Rocephin Flagyl. Continue diuretics. Did discuss with patient that increased diuretic use and decreased need for paracentesis as ideal in her situation. Patient can be triaged to normal floor We'll sign outpatient's blood pressures are suboptimal and as long as patient is asymptomatic there is no need for increasing level of care. If patient does appear to be hypotensive then infusion with 1 dose of albumin would help in increasing the patient's systolic blood pressure. Continue ongoing care patient will need at least 14 days of antibody to intra- abdominal coverage patient does seem to have spontaneous bacterial peritonitis. Patient is to continue fluid resections of 1.5 L. Protein intake. Continue vitamin K at this time.
--- NOTE | 2016-10-28 18:25 | CONS ---
DATE OF CONSULTATION: 10/28/2016 REASON FOR CONSULTATION: Alcoholic cirrhosis/acute alcoholic hepatitis and ascites. HISTORY OF PRESENT ILLNESS: The patient is a 46-year-old white female was diagnosed with alcoholic cirrhosis of the liver as well as acute alcoholic hepatitis during her previous admission about 6 weeks ago. She apparently has been complaining of abdominal pain, progressive abdominal distention, and she was scheduled for a large-volume paracentesis on an outpatient basis yesterday. She came for the procedure, but she was noted to have a fever 101.5 and elevated INR, and hence she was sent to the emergency room, where she received broad-spectrum antibiotics for possible SBP and was given 2 units of fresh frozen plasma and subsequently underwent paracentesis; approximately 3 L of fluid was removed. The fluid cultures are still pending and the fluid cytology showed less than 100 PMNs. She was, however, started on broad-spectrum antibiotics with Flagyl and Rocephin and was transferred to the intensive care unit because of lactic acidosis. She is feeling much better this morning; still complains of some abdominal pain. Some nausea but no emesis. No further episodes of fever, chills or night sweats. Her past medical history is significant for: 1. Alcoholic cirrhosis of the liver. 2. Acute alcoholic hepatitis diagnosed a month ago. 3. Heavy alcohol abuse. She quit drinking about 45 days ago. PAST SURGICAL HISTORY: Unremarkable other than and paracentesis. Medications at home include: 1. Multivitamin. 2. Potassium chloride. 3. Zoloft. 4. Vitamin K. 5. Sparks. 6. Trazodone. 7. Aldactone. SOCIAL HISTORY: Heavy drinking, as mentioned above. Quit 45 days ago. No smoking. FAMILY HISTORY: History of congestive heart failure. Mother has glaucoma. Father is healthy. REVIEW OF SYSTEMS: CARDIOPULMONARY: No chest pain or shortness of breath. GENITOURINARY: No dysuria or hematuria. MUSCULOSKELETAL: Unremarkable. SKIN: Unremarkable. ENDOCRINE: Unremarkable. PSYCHIATRIC: Unremarkable. NEUROLOGY: Unremarkable. ENT/VISION: Unremarkable. CONSTITUTIONAL: No recent weight loss. No fever, chills, night sweats. PHYSICAL EXAMINATION: Blood pressure 94/58, pulse rate 92, temperature 98.4. HEENT EXAMINATION: Unremarkable. Conjunctivae pink. Sclerae icteric. Oral cavity with no lesions. NECK: No JVD or lymph node enlargement. Chest was clear to auscultation. HEART: Regular rate and rhythm. ABDOMEN: Distended but very tympanic. Some free fluid noted. EXTREMITIES: No pedal edema. SKIN: No rashes. NEURO: She is alert and oriented x3. No focal deficits. LABS FROM TODAY: WBC 12.9, hemoglobin 10, platelets 69. INR 2.2. BUN is 14, creatinine 0.5. Lactic acid yesterday was 4.4. Today it is 1.6. T-bili is 7.3. AST 73. ALT 67. IMPRESSION: 1. Acute alcoholic hepatitis in this lady who has a history of heavy alcohol abuse; quit drinking about 45 days ago. This is her second hospitalization. 2. Alcoholic cirrhosis of the liver with portal hypertension. 3. Ascites, status post large-volume paracentesis yesterday; 3 liters removed. 4. Fever, chills, possibly spontaneous bacterial peritonitis. So far cultures from ascitic fluids are still pending. Cell count did not show any evidence of significant PMNs; however, she is on Flagyl and Rocephin and doing much better. RECOMMENDATIONS: 1. Continue broad-spectrum antibiotics. 2. Protonix 40 mg daily. 3. Low-salt diet. 4. Will start her on Lasix 40 mg daily and increase Aldactone to 100 mg daily to prevent recurrent ascites. Will follow the patient closely during her hospital stay. Thank you for this consultation.
--- NOTE | 2016-10-28 22:15 | P.CONS ---
History of Present Illness - Reason for Consult Consult date: 10/28/16 - Chief Complaint Ascites and alcoholic hepatitis - History of Present Illness 46-year-old woman who is a long-standing history of alcoholism who has alcoholic cirrhosis who developed acute alcoholic hepatitis Fraxinus 6 weeks ago. Since that time she continued to have evidence of ongoing ascites requiring high-volume paracentesis. She developed a temperature 101.5 and does have an elevated INR at 2.2. She had 3.2 L removed again yesterday and this continues to have ascites her fever fortunately is improved and her abdominal pain is improved. Still does not feel very well. Appetite is poor but is not having nausea or emesis. She does point in time is denying acute headache or visual change. She is not having rigors. Review of Systems HEENT:Denies headache or acute visual change. Denies sinus or mouth discomforts. Denies neck stiffness or pain. Denies significant oral cavity pain. Denies difficulty on swallowing. Lungs: Was having shortness of breath this is improving ain, orthopnea, dyspnea on exertion, syncope Gastrointestinal:Denies as per the HPI his extensive ascites Musculoskeletal: denies significant myalgias or arthralgias. No new joint swelling. Denies new back pain. Skin: Denies new rash or lesions. No new ulcers or wounds are related.. Neuro: Denies headache or visual change. Denies any new onset weakness or difficulty with ambulation. Denies falls or seizures. Psychiatric: Chronic anxiety and depression Endocrine: Has fatigue and weight gain Past Medical History Past Medical History: Liver Disease Additional Past Medical History / Comment(s): enlarged liver, alcoholic cirrhosis. History of Any Multi-Drug Resistant Organisms: None Reported Past Surgical History: Section Additional Past Surgical History / Comment(s): Paracentesis Additional Past Anesthesia/Blood Transfusion Reaction / Comm: Pt has never had general anesthesia. Past Psychological History: Depression Additional Psychological History / Comment(s): Pt resides with nonfamily member. She is independent. Smoking Status: Never smoker Past Alcohol Use History: Heavy Additional Past Alcohol Use History / Comment(s): Pt states she has not drank alcohol for 45 days. Past Drug Use History: None Reported - Past Family History Sister(s) Family Medical History: Congestive Heart Failure (CHF) Additional Family Medical History / Comment(s): mitral valve prolapse Mother Family Medical History: Eye Disorder Additional Family Medical History / Comment(s): Glaucoma, aneurysm-pt does not know location. Father Family Medical History: No Reported History Additional Family Medical History / Comment(s): Father is healthy Medications and Allergies Home Medications and Allergies Comment(s): Current Medications Acetaminophen (Tylenol Tab) 650 mg PO Q6HR PRN PRN Reason: Mild Pain or Fever > 100.5 Furosemide (Lasix) 40 mg IV Q12HR [facility] Last Admin: 10/28/16 20:55 Dose: 40 mg Ceftriaxone Sodium 2,000 mg/ (Sodium Chloride) 100 mls @ 100 mls/hr IVPB Q12HR [facility] Last Admin: 10/28/16 20:55 Dose: 100 mls/hr Sodium Chloride (Saline 0.9%) 1,000 mls @ 20 mls/hr IV .Q24H [facility] Last Admin: 10/28/16 12:40 Dose: 20 mls/hr Metronidazole 500 mg/ IV (Solution) 100 mls @ 100 mls/hr IVPB Q8HR [facility] Last Admin: 10/28/16 18:13 Dose: 100 mls/hr Midodrine (Proamatine) 5 mg PO AC-TID [facility] Last Admin: 10/28/16 20:49 Dose: 5 mg Miscellaneous Information (Pneumonia Protocol Utilized) 1 each PO ONCE PRN PRN Reason: Per Protocol Miscellaneous Information (Magnesium Per Protocol) 1 each MISCELLANE DAILY PRN ; Protocol PRN Reason: Per Protocol Miscellaneous Information (Potassium Per Protocol) 1 each MISCELLANE DAILY PRN ; Protocol PRN Reason: Per Protocol Morphine Sulfate (Morphine Sulfate (Inj)) 4 mg IV Q4HR PRN PRN Reason: Severe Pain Last Admin: 10/28/16 18:13 Dose: 4 mg Naloxone HCl (Narcan) 0.2 mg IV Q2M PRN PRN Reason: Opioid Reversal Pantoprazole Sodium (Protonix) 40 mg PO AC-BRKFST [facility] Sertraline HCl (Zoloft) 25 mg PO DAILY@1200 [facility] Last Admin: 10/28/16 12:39 Dose: 25 mg Sodium Chloride ([place]) 2 spray NASAL DAILY PRN PRN Reason: Nasal Congestion Spironolactone (Aldactone) 50 mg PO DAILY [facility] Last Admin: 10/28/16 09:10 Dose: 50 mg Thiamine HCl (Vitamin B-1) 100 mg PO DAILY [facility] Last Admin: 10/28/16 09:11 Dose: 100 mg Home Medications Medication Instructions Recorded Confirmed Type Potassium Chloride ER [K-Dur 20] 20 mg PO QAM 10/01/16 10/27/16 History Sertraline [Zoloft] 25 mg PO DAILY@1200 10/01/16 10/27/16 History Multivitamins, Thera [Multivitamin 1 tab PO DAILY@1200 10/21/16 10/27/16 History (formulary)] Saline Nasal [place] 2 spray NASAL DAILY PRN 10/21/16 10/27/16 History Phytonadione [Vitamin K] 1 mg PO DAILY 10/25/16 10/27/16 History Hydrocodone/Acetaminophen [[place] 1 tab PO Q4HR PRN 10/27/16 10/27/16 History 5-325] traZODone HCL 50 mg PO HS 10/27/16 10/27/16 History Allergies Allergy/AdvReac Type Severity Reaction Status Date / Time No Known Allergies Allergy Verified 10/27/16 09:36 Physical Exam Vitals: Vital Signs Temp Pulse Pulse Resp BP BP Pulse Ox 10/28/16 22:01 99.1 F 92 16 106/68 94 L 10/28/16 16:00 98.3 F 98 16 101/57 95 10/28/16 12:00 98.4 F 91 20 96/56 10/28/16 11:00 90 18 98/59 97 10/28/16 10:00 22 103/61 10/28/16 09:00 92 20 94/58 93 L 10/28/16 08:00 98.5 F 97 18 89/61 94 L 10/28/16 07:00 88 15 95/56 93 L 10/28/16 06:00 90 16 95/56 93 L 10/28/16 05:00 94 16 98/54 93 L 10/28/16 04:00 98.7 F 92 19 99/61 93 L 10/28/16 03:00 93 16 99/52 94 L 10/28/16 02:30 102 H 26 H 102/56 90 L 10/28/16 02:00 98 23 102/56 92 L 10/28/16 01:30 98 13 93 L 10/28/16 01:00 102 H 16 102/60 92 L 10/28/16 00:30 99 23 93 L 10/28/16 00:00 98.9 F 99 16 104/61 92 L 10/27/16 23:00 127 H 51 H 104/61 95 10/27/16 22:30 100 23 95 Intake and Output 10/28/16 10/28/16 10/28/16 06:59 14:59 22:59 Intake Total 460 540 Output Total 200 Balance 260 540 Intake: IV 340 440 Magnesium Sulfate-D5w Pmx 200 1 gm In Dextrose/Water 1 100ml.bag @ 100 mls/hr IVPB Q1H [facility] Rx#: [id number] Sodium Chloride 0.9% 1, 140 40 000 ml @ 20 mls/hr IV . Q24H [facility] Rx#:[id number] cefTRIAXone 2,000 mg In 100 200 Sodium Chloride 0.9% 100 ml @ 100 mls/hr IVPB Q12HR [facility] Rx#:[id number] metroNIDAZOLE-NS PMX 500 100 mg In Saline 1 100ml.bag @ 100 mls/hr IVPB Q8HR [facility] Rx#:[id number] Intake, IV Titration 100 Amount Magnesium Sulfate-D5w Pmx 100 1 gm In Dextrose/Water 1 100ml.bag @ 100 mls/hr IVPB Q1H [facility] Rx#: [id number] Oral 120 Output: Urine 200 Other: Voiding Method Toilet Toilet Toilet # Voids 1 1 Weight 71 kg 71 kg 71 kg Patient Weight 10/29/16 06:59 Weight 71 kg 46 year old who looks older than her stated age. She has evidence of going to a [facility] to cover up her jaundice. HEENT: Anicteric conjunctiva are pink and moist nasal mucosa grossly intact without significant lesions, there is no thrush. Neck: The neck is supple without significant lymphadenopathy or thyromegaly. Lungs: Symmetrical air entry. Expiratory wheezes. No jacqueline bronchial sounds Heart: Regular rate and rhythm with an audible S1-S2, no S3 no S4. There is no significant murmur click or rub, PMI was nondisplaced. Abdomen: Jacqueline ascites is still palpated. Abdomen is minimally tender. Fluid wave is noted. Organs cannot be palpated. Extremities: The upper extremities have excellent pulses they are symmetric, no significant petechiae or telangiectasia. No splinter hemorrhages were noted. The lower extremities are free from significant edema. The peripheral pulses were 2+ and symmetric. Neuro: Awake alert oriented to person place and time. There are no acute new gross focal sensory motor deficits. Skin is grossly jaundiced but is also been to a [place]. Results CBC & Chem 7: 10/28/16 04:39 10/28/16 04:39 Labs: Abnormal Lab Results - Last 24 Hours (Table) 10/28/16 10/28/16 10/28/16 Range/Units 04:39 04:39 04:39 WBC 12.9 H (3.8-10.6) k/uL RBC 2.68 L (3.80-5.40) m/uL Hgb 10.0 L D (11.4-16.0) gm/dL Hct 29.0 L (34.0-46.0) % MCV 108.0 H (80.0-100.0) fL MCH 37.3 H (25.0-35.0) pg RDW 16.1 H (11.5-15.5) % Plt Count 69 L (150-450) k/uL Neutrophils # 10.8 H (1.3-7.7) k/uL PT 20.9 H (9.0-12.0) sec Sodium 133 L (137-145) mmol/L Potassium 3.3 L (3.5-5.1) mmol/L Creatinine 0.50 L (0.52-1.04) mg/dL Glucose 147 H (74-99) mg/dL Calcium 7.8 L (8.4-10.2) mg/dL Total Bilirubin 7.3 H (0.2-1.3) mg/dL AST 73 H (14-36) U/L ALT 67 H (9-52) U/L Total Protein 6.1 L (6.3-8.2) g/dL Albumin 2.4 L (3.5-5.0) g/dL Microbiology - Last 24 Hours (Table) 10/27/16 15:10 Gram Stain - Preliminary Peritoneal Fluid Body Fluid Culture - Preliminary 10/27/16 14:21 Blood Culture - Preliminary Blood No Growth after 24 hours 10/27/16 15:10 Anaerobic Culture - Preliminary Peritoneal Fluid 10/27/16 11:49 Urine Culture - Preliminary Urine,Catheterized Laboratory Results WBC 12.9 k/uL (3.8-10.6) H 10/28/16 04:39 RBC 2.68 m/uL (3.80-5.40) L 10/28/16 04:39 Hgb 10.0 gm/dL (11.4-16.0) L D 10/28/16 04:39 Hct 29.0 % (34.0-46.0) L 10/28/16 04:39 MCV 108.0 fL (80.0-100.0) H 10/28/16 04:39 MCH 37.3 pg (25.0-35.0) H 10/28/16 04:39 MCHC 34.5 g/dL (31.0-37.0) 10/28/16 04:39 RDW 16.1 % (11.5-15.5) H 10/28/16 04:39 Plt Count 69 k/uL (150-450) L 10/28/16 04:39 Neutrophils % 83 % 10/28/16 04:39 Lymphocytes % 10 % 10/28/16 04:39 Monocytes % 4 % 10/28/16 04:39 Eosinophils % 2 % 10/28/16 04:39 Basophils % 0 % 10/28/16 04:39 Neutrophils # 10.8 k/uL (1.3-7.7) H 10/28/16 04:39 Lymphocytes # 1.3 k/uL (1.0-4.8) 10/28/16 04:39 Monocytes # 0.5 k/uL (0-1.0) 10/28/16 04:39 Eosinophils # 0.2 k/uL (0-0.7) 10/28/16 04:39 Basophils # 0.0 k/uL (0-0.2) 10/28/16 04:39 Manual Slide Review Performed 10/28/16 04:39 Anisocytosis Slight 10/28/16 04:39 Macrocytosis Marked 10/28/16 04:39 Target Cells Present 10/28/16 04:39 PT 20.9 sec (9.0-12.0) H 10/28/16 04:39 INR 2.2 (<1.1) 10/28/16 04:39 APTT 24.6 sec (22.0-30.0) 10/27/16 09:10 Sodium 133 mmol/L (137-145) L 10/28/16 04:39 Potassium 3.3 mmol/L (3.5-5.1) L 10/28/16 04:39 Chloride 99 mmol/L (98-107) 10/28/16 04:39 Carbon Dioxide 29 mmol/L (22-30) 10/28/16 04:39 Anion Gap 5 mmol/L 10/28/16 04:39 BUN 14 mg/dL (7-17) 10/28/16 04:39 Creatinine 0.50 mg/dL (0.52-1.04) L 10/28/16 04:39 Est GFR (MDRD) Af Amer >60 (>60 ml/min/1.73 sqM) 10/28/16 04:39 Est GFR (MDRD) Non-Af >60 (>60 ml/min/1.73 sqM) 10/28/16 04:39 Glucose 147 mg/dL (74-99) H 10/28/16 04:39 POC Glucose (mg/dL) 151 mg/dL (75-99) H 10/27/16 21:22 POC Glu Ux Designer ID Jason Rodriguez 10/27/16 21:22 Plasma Lactic Acid Odell 1.6 mmol/L (0.7-2.0) 10/28/16 01:29 Calcium 7.8 mg/dL (8.4-10.2) L 10/28/16 04:39 Phosphorus 2.8 mg/dL (2.5-4.5) 10/28/16 04:39 Magnesium 1.7 mg/dL (1.6-2.3) 10/28/16 04:39 Total Bilirubin 7.3 mg/dL (0.2-1.3) H 10/28/16 04:39 AST 73 U/L (14-36) H 10/28/16 04:39 ALT 67 U/L (9-52) H 10/28/16 04:39 Alkaline Phosphatase 122 U/L (38-126) 10/28/16 04:39 Total Protein 6.1 g/dL (6.3-8.2) L 10/28/16 04:39 Albumin 2.4 g/dL (3.5-5.0) L 10/28/16 04:39 Urine Color Light Brown 10/27/16 11:49 Urine Appearance Clear (Clear) 10/27/16 11:49 Urine pH 5.5 (5.0-8.0) 10/27/16 11:49 Ur Specific Secretary 1.017 (1.001-1.035) 10/27/16 11:49 Urine Protein Trace (Negative) H 10/27/16 11:49 Urine Glucose (UA) Negative (Negative) 10/27/16 11:49 Urine Ketones Negative (Negative) 10/27/16 11:49 Urine Blood Negative (Negative) 10/27/16 11:49 Urine Nitrite Negative (Negative) 10/27/16 11:49 Urine Bilirubin 1+ (Negative) H 10/27/16 11:49 Urine Urobilinogen 6.0 mg/dL (<2.0) 10/27/16 11:49 Ur Leukocyte Esterase Negative (Negative) 10/27/16 11:49 Fluid Source Peritoneal 10/27/16 15:10 Fluid Color Yellow 10/27/16 15:10 Fluid Appearance Hazy 10/27/16 15:10 Fluid RBC 19 /uL 10/27/16 15:10 Fluid Nucleated Cells 551 /uL 10/27/16 15:10 Fluid Polynuclear WBCs 92 % 10/27/16 15:10 Fluid Mononuclear WBCs 8 % 10/27/16 15:10 Fluid Comment Few Mesothelial 10/27/16 15:10 Influenza Type A RNA Not Detected (Not Detectd) 10/27/16 10:44 Influenza Type B (PCR) Not Detected (Not Detectd) 10/27/16 10:44 Blood Type O Negative 10/27/16 09:10 Blood Type Recheck No 10/27/16 09:10 Antibody Screen NEGATIVE 10/27/16 09:10 Transfuse Plasma 10/27/16 10/27/16 09:10 Spec Expiration Date 10/30/2016 - 2310 10/27/16 09:10 Microbiology 10/27/16 15:10 Peritoneal Fluid Gram Stain - Preliminary 10/27/16 15:10 Peritoneal Fluid Body Fluid Culture - Preliminary 10/27/16 14:21 Blood Blood Culture - Preliminary No Growth after 24 hours 10/27/16 09:10 Blood Blood Culture - Preliminary No Growth after 24 hours 10/27/16 15:10 Peritoneal Fluid Anaerobic Culture - Preliminary 10/27/16 11:49 Urine,Catheterized Urine Culture - Preliminary Assessment and Plan (1) Alcoholic hepatitis with ascites Status: Acute (2) Coagulopathy Status: Acute (3) Spontaneous bacterial peritonitis Status: Acute Plan: 46-year-old woman presents to hospital with increasing worsening ascites and generalized malaise and some shortness of breath with cough. Also had a fever. She's had a paracentesis performed. There is a large amount of white cells. Gram stain is negative and cultures are pending. She is an appropriate antibiotic therapy at this point in time with Rocephin and metronidazole. Cultures are process. The patient was having some breathing difficulties it improved with her paracentesis As the patient improves and she transitions to home after a course of oral antibiotic therapy to complete the treatment of her spontaneous bacterial peritonitis. Wonder if she would be a good candidate for an oral nonabsorbable antibiotic therapy to prevent further bouts of this given her advanced liver disease and now about of SBP. Overall prognosis is poor. She is following with the local probation counselor. With her active alcohol use likely not a candidate for being evaluated for transplant center but if she worsens may need to be considered.
[2016-10-29] MEDS: MORPHINE SULFATE 4 MG/ML SYRINGE IV PRN ×4 (05:18→18:46)
[2016-10-29] MEDS: MIDODRINE 5 MG TAB PO SCH ×3 (07:30→17:59)
[2016-10-29] MEDS: PANTOPRAZOLE 40 MG TABLET PO SCH (07:31)
[2016-10-29] MEDS: cefTRIAXone 2,000 MG in SODIUM CHLORIDE 0.9% 100 ML IVPB SCH ×2 (07:33→22:45)
[2016-10-29 08:32] LABS: Magnesium 1.8 mg/dL (1.6-2.3); Phosphorous 2.7 mg/dL (2.5-4.5)
[2016-10-29] MEDS: SPIRONOLACTONE 25 MG TAB PO SCH (09:07)
[2016-10-29] MEDS: FUROSEMIDE 10 MG/ML 4 ML VIAL IV SCH ×2 (09:07→21:30)
[2016-10-29] MEDS: THIAMINE 100 MG TAB PO SCH (09:07)
[2016-10-29] MEDS: metroNIDAZOLE-NS PMX 500 MG in SALINE 1 100ML.BAG IVPB SCH (10:55)
--- NOTE | 2016-10-29 13:04 | P.PN ---
Subjective This is a 46-year-old female with history of alcoholic cirrhosis, recurrent ascites, patient presented to the hospital with a few days' history of low- grade fever, abdominal distention, and some abdominal discomfort. Patient was admitted with ascites, and she underwent paracentesis were and just over 3 L of fluid were drained from the abdominal cavity. Patient was also noted to have a temp as high as 101.5 upon admission. And she was also noted to have elevated INR requiring fresh frozen plasma prior to paracentesis. Plasma lactic acid was 4.4 on admission,, patient was placed on antibiotics for presumptive sepsis/ spontaneous bacterial peritonitis, and follow-up lactic acid was 1.6. Patient was log on Flagyl and Rocephin. Transaminases were also noted to be elevated. Considering the patient's presentation of sepsis and spontaneous bacterial peritonitis, I was asked to see her on consultation in the intensive care unit. Upon my evaluation, patient was noted to be hemodynamically stable, comfortable, and in no distress. Blood cultures so far are negative. Gram stain on the peritoneal fluid was negative but it showed moderate polymorphonuclear leukocytes. Urine culture is pending presently the patient denies any fever, no chills, no headaches no blurred vision no dizziness, no chest pain or shortness of breath. She does have abdominal distention and abdominal tenderness. The patient is seen again today 10/29/2016 on the regular medical floor. She is awake and alert in no acute distress. She denies any worsening shortness of breath, cough or congestion. Current temp 100.0. She is maintaining O2 saturations in the 90s on room air. She is hemodynamically stable. Objective - Vital Signs Vital signs: Vital Signs Temp 100.0 F H 10/29/16 11:28 Pulse 84 10/29/16 08:00 Resp 16 10/29/16 08:00 BP 94/53 10/29/16 07:00 Pulse Ox 92 L 10/29/16 07:00 Intake & Output 10/28/16 10/29/16 10/29/16 18:59 06:59 18:59 Intake Total 540 160 120 Output Total 1350 Balance 540 -1190 120 Weight 71 kg 61.5 kg Intake: IV 440 Magnesium Sulfate-D5w Pmx 200 1 gm In Dextrose/Water 1 100ml.bag @ 100 mls/hr IVPB Q1H [facility] Rx#: [id number] Sodium Chloride 0.9% 1, 40 000 ml @ 20 mls/hr IV . Q24H [facility] Rx#:[id number] cefTRIAXone 2,000 mg In 200 Sodium Chloride 0.9% 100 ml @ 100 mls/hr IVPB Q12HR [facility] Rx#:[id number] Intake, IV Titration 100 160 Amount Magnesium Sulfate-D5w Pmx 100 1 gm In Dextrose/Water 1 100ml.bag @ 100 mls/hr IVPB Q1H [facility] Rx#: [id number] Sodium Chloride 0.9% 1, 160 000 ml @ 20 mls/hr IV . Q24H [facility] Rx#:[id number] Oral 120 Output: Urine 1350 Other: Voiding Method Toilet Toilet Toilet # Voids 1 - Exam GENERAL EXAM: Alert, comfortable in no apparent distress. HEAD: Normocephalic. EYES: Normal reaction of pupils, equal size. Sclera icteric NOSE: Clear with pink turbinates. THROAT: No erythema or exudates. NECK: No masses, no JVD. CHEST: No chest wall deformity. LUNGS: Equal air entry with no crackles, wheeze, rhonchi or dullness. CVS: S1 and S2 normal with no audible mumurs, regular rhythm. ABDOMEN: Hepatomegaly, distended, normal bowel sounds, no guarding or rigidity. SPINE: No scoliosis or deformity SKIN: No rashes CENTRAL NERVOUS SYSTEM: No focal deficits, tone is normal in all 4 extremities. Extremities: There is trace peripheral edema. No clubbing, no cyanosis. Peripheral pulses are intact. - Labs CBC & Chem 7: 10/28/16 04:39 10/28/16 04:39 Labs: Microbiology - Last 24 Hours (Table) 10/27/16 11:49 Urine Culture - Final Urine,Catheterized 10/27/16 15:10 Gram Stain - Preliminary Peritoneal Fluid Body Fluid Culture - Preliminary 10/27/16 14:21 Blood Culture - Preliminary Blood No Growth after 24 hours Assessment and Plan Plan: Impression: #1 Sepsis secondary to suspected acute spontaneous bacterial peritonitis. #2 Chronic thrombocytopenia secondary to alcohol abuse. #3 Decompensated liver cirrhosis with ascites status post paracentesis. #4 Acute metabolic encephalopathy. #5 History of depression. #6 Coagulopathy secondary to liver disease. Plan: The patient was seen and evaluated by Dr. Makenzie. We'll continue with diuretics and antibiotics. Continue to observe the abdomen may need to consider repeat paracentesis if necessary. Infectious disease is on the case as well. Currently on ceftriaxone and metronidazole. We'll continue to follow.
[2016-10-29] MEDS: SERTRALINE 25 MG TAB PO SCH (14:29)
[2016-10-29] MEDS: SODIUM CHLORIDE 0.9% 1,000 ML IV SCH (14:30)
--- NOTE | 2016-10-29 17:55 | P.PN ---
Subjective 46-year-old female with history of alcoholic cirrhosis currently maintained on Lasix milligrams by mouth twice a day and aspart elective 50 mg by mouth daily comes in to the hospital with complaints of progressive worsening of pain in her abdomen associated with distention. However patient noted multiple episodes of fevers during the same period of time hence was admitted to the hospital. Patient apparently has to episodes of paracentesis so far. Including one today. Patient was noted to have liver cirrhosis secondary to alcohol use has not had any intake and over 45 days according to her. Patient states that over the last few days her belly has been progressively distended and was associated with the pain. States that she has had a fever at home on admission patient was also noted to have a fever greater than 101.5 in the hospital. Patient's INR was elevated did receive FFP and thereafter underwent 3 L of fluid removal from the abdomen. Currently states that she is feeling better. However apparently during the period of being febrile patient was confused according to the family member that was at bedside. States that she is slightly improved however has tenderness to palpation of her belly. 10/28/2016 Patient apparently had a slightly low blood pressure was thereafter triaged to the intensive care unit for closer monitoring. Today patient complains of abdominal pain diffuse in nature no fevers chills nausea vomiting or diarrhea. 10/29/16 states to have chills this am abdominal discomfort is improving no other issues reported. Objective - Vital Signs Vital signs: Vital Signs Temp 99.4 F 10/29/16 16:44 Pulse 96 10/29/16 16:44 Resp 16 10/29/16 16:44 BP 102/55 10/29/16 16:44 Pulse Ox 96 10/29/16 15:00 Intake & Output 10/28/16 10/29/16 10/29/16 18:59 06:59 18:59 Intake Total 540 160 845 Output Total 1350 2120 Balance 540 -2070 1272 Weight 71 kg 61.5 kg 61.5 kg Intake: IV 440 125 Magnesium Sulfate-D5w Pmx 200 1 gm In Dextrose/Water 1 100ml.bag @ 100 mls/hr IVPB Q1H [facility] Rx#: [id number] Sodium Chloride 0.9% 1, 40 125 000 ml @ 20 mls/hr IV . Q24H [facility] Rx#:[id number] cefTRIAXone 2,000 mg In 200 Sodium Chloride 0.9% 100 ml @ 100 mls/hr IVPB Q12HR [facility] Rx#:[id number] Intake, IV Titration 100 160 100 Amount Magnesium Sulfate-D5w Pmx 100 1 gm In Dextrose/Water 1 100ml.bag @ 100 mls/hr IVPB Q1H [facility] Rx#: [id number] Sodium Chloride 0.9% 1, 160 000 ml @ 20 mls/hr IV . Q24H [facility] Rx#:[id number] cefTRIAXone 2,000 mg In 100 Sodium Chloride 0.9% 100 ml @ 100 mls/hr IVPB Q12HR [facility] Rx#:[id number] Oral 620 Output: Urine 1350 2120 Other: Voiding Method Toilet Toilet Toilet # Voids 1 1 - Exam Physical exam Gen. appearance oriented 3 in no distress Neck is supple no JVD Lungs good air entry clear to auscultation no rhonchi or wheezing Heart S1-S2 heard regular rate and rhythm no murmurs appreciated Abdomen diffusely tender distended dull to percussion, improving. Neurologically cranial nerves II-12 grossly intact no focal motor or sensory deficits noted Skin no abnormalities appreciated - Labs CBC & Chem 7: 10/28/16 04:39 10/28/16 04:39 Labs: Microbiology - Last 24 Hours (Table) 10/27/16 14:21 Blood Culture - Preliminary Blood No Growth after 48 hours 10/27/16 11:49 Urine Culture - Final Urine,Catheterized 10/27/16 15:10 Gram Stain - Preliminary Peritoneal Fluid Body Fluid Culture - Preliminary Assessment and Plan Plan: #1 sepsis secondary to spontaneous bacterial peritonitis #2 chronic thrombocytopenia secondary to alcohol use #3 slightly decompensated liver cirrhosis #4 hypokalemia #5 acute metabolic encephalopathy #6 depression Coagulopathy secondary to above Plan continue Rocephin Flagyl. Continue diuretics. Did discuss with patient that increased diuretic use and decreased need for paracentesis as ideal in her situation. strict I/O will need another 24 hrs atleast, clinically improving over 6 l negative. Patient is to continue fluid resections of 1.5 L. Protein intake. Continue vitamin K at this time.
[2016-10-29] MEDS: metroNIDAZOLE 500 MG TAB PO SCH ×2 (17:59→22:45)
--- NOTE | 2016-10-29 18:03 | P.PN ---
Subjective Principal diagnosis: Ascites and alcoholic hepatitis She developed a temperature 101.5 and does have an elevated INR at 2.2. She had 3.2 L removed again yesterday and this continues to have ascites her fever fortunately is improved and her abdominal pain is improved. Still does not feel very well. Appetite is poor but is not having nausea or emesis. She does point in time is denying acute headache or visual change. She is not having rigors. Feels only slightly better today Objective - Vital Signs Vital signs: Vital Signs Temp 99.4 F 10/29/16 16:44 Pulse 96 10/29/16 16:44 Resp 16 10/29/16 16:44 BP 102/55 10/29/16 16:44 Pulse Ox 96 10/29/16 15:00 Intake & Output 10/28/16 10/29/16 10/29/16 18:59 06:59 18:59 Intake Total 540 160 845 Output Total 1350 2120 Balance 540 -1190 -1275 Weight 71 kg 61.5 kg 61.5 kg Intake: IV 440 125 Magnesium Sulfate-D5w Pmx 200 1 gm In Dextrose/Water 1 100ml.bag @ 100 mls/hr IVPB Q1H [facility] Rx#: [id number] Sodium Chloride 0.9% 1, 40 125 000 ml @ 20 mls/hr IV . Q24H [facility] Rx#:[id number] cefTRIAXone 2,000 mg In 200 Sodium Chloride 0.9% 100 ml @ 100 mls/hr IVPB Q12HR [facility] Rx#:[id number] Intake, IV Titration 100 160 100 Amount Magnesium Sulfate-D5w Pmx 100 1 gm In Dextrose/Water 1 100ml.bag @ 100 mls/hr IVPB Q1H [facility] Rx#: [id number] Sodium Chloride 0.9% 1, 160 000 ml @ 20 mls/hr IV . Q24H [facility] Rx#:[id number] cefTRIAXone 2,000 mg In 100 Sodium Chloride 0.9% 100 ml @ 100 mls/hr IVPB Q12HR [facility] Rx#:[id number] Oral 620 Output: Urine 1350 2120 Other: Voiding Method Toilet Toilet Toilet # Voids 1 1 - Exam 46 year old who looks older than her stated age. She has evidence of going to a [facility] to cover up her jaundice. HEENT: Anicteric conjunctiva are pink and moist nasal mucosa grossly intact without significant lesions, there is no thrush. Neck: The neck is supple without significant lymphadenopathy or thyromegaly. Lungs: Symmetrical air entry. Expiratory wheezes. No jacqueline bronchial sounds Heart: Regular rate and rhythm with an audible S1-S2, no S3 no S4. There is no significant murmur click or rub, PMI was nondisplaced. Abdomen: Jacqueline ascites is still palpated. Abdomen is minimally tender. Fluid wave is noted. Organs cannot be palpated. Extremities: The upper extremities have excellent pulses they are symmetric, no significant petechiae or telangiectasia. No splinter hemorrhages were noted. The lower extremities are free from significant edema. The peripheral pulses were 2+ and symmetric. Neuro: Awake alert oriented to person place and time. There are no acute new gross focal sensory motor deficits. Skin is grossly jaundiced but is also been to a [facility]. - Labs CBC & Chem 7: 10/28/16 04:39 10/28/16 04:39 Labs: Microbiology - Last 24 Hours (Table) 10/27/16 14:21 Blood Culture - Preliminary Blood No Growth after 48 hours 10/27/16 11:49 Urine Culture - Final Urine,Catheterized 10/27/16 15:10 Gram Stain - Preliminary Peritoneal Fluid Body Fluid Culture - Preliminary Laboratory Results WBC 12.9 k/uL (3.8-10.6) H 10/28/16 04:39 RBC 2.68 m/uL (3.80-5.40) L 10/28/16 04:39 Hgb 10.0 gm/dL (11.4-16.0) L D 10/28/16 04:39 Hct 29.0 % (34.0-46.0) L 10/28/16 04:39 MCV 108.0 fL (80.0-100.0) H 10/28/16 04:39 MCH 37.3 pg (25.0-35.0) H 10/28/16 04:39 MCHC 34.5 g/dL (31.0-37.0) 10/28/16 04:39 RDW 16.1 % (11.5-15.5) H 10/28/16 04:39 Plt Count 69 k/uL (150-450) L 10/28/16 04:39 Neutrophils % 83 % 10/28/16 04:39 Lymphocytes % 10 % 10/28/16 04:39 Monocytes % 4 % 10/28/16 04:39 Eosinophils % 2 % 10/28/16 04:39 Basophils % 0 % 10/28/16 04:39 Neutrophils # 10.8 k/uL (1.3-7.7) H 10/28/16 04:39 Lymphocytes # 1.3 k/uL (1.0-4.8) 10/28/16 04:39 Monocytes # 0.5 k/uL (0-1.0) 10/28/16 04:39 Eosinophils # 0.2 k/uL (0-0.7) 10/28/16 04:39 Basophils # 0.0 k/uL (0-0.2) 10/28/16 04:39 Manual Slide Review Performed 10/28/16 04:39 Anisocytosis Slight 10/28/16 04:39 Macrocytosis Marked 10/28/16 04:39 Target Cells Present 10/28/16 04:39 PT 20.9 sec (9.0-12.0) H 10/28/16 04:39 INR 2.2 (<1.1) 10/28/16 04:39 APTT 24.6 sec (22.0-30.0) 10/27/16 09:10 Sodium 133 mmol/L (137-145) L 10/28/16 04:39 Potassium 3.3 mmol/L (3.5-5.1) L 10/28/16 04:39 Chloride 99 mmol/L (98-107) 10/28/16 04:39 Carbon Dioxide 29 mmol/L (22-30) 10/28/16 04:39 Anion Gap 5 mmol/L 10/28/16 04:39 BUN 14 mg/dL (7-17) 10/28/16 04:39 Creatinine 0.50 mg/dL (0.52-1.04) L 10/28/16 04:39 Est GFR (MDRD) Af Amer >60 (>60 ml/min/1.73 sqM) 10/28/16 04:39 Est GFR (MDRD) Non-Af >60 (>60 ml/min/1.73 sqM) 10/28/16 04:39 Glucose 147 mg/dL (74-99) H 10/28/16 04:39 POC Glucose (mg/dL) 151 mg/dL (75-99) H 10/27/16 21:22 POC Glu [facility] ID Jason Rodriguez 10/27/16 21:22 Plasma Lactic Acid Odell 1.6 mmol/L (0.7-2.0) 10/28/16 01:29 Calcium 7.8 mg/dL (8.4-10.2) L 10/28/16 04:39 Phosphorus 2.7 mg/dL (2.5-4.5) 10/29/16 07:37 Magnesium 1.8 mg/dL (1.6-2.3) 10/29/16 07:37 Total Bilirubin 7.3 mg/dL (0.2-1.3) H 10/28/16 04:39 AST 73 U/L (14-36) H 10/28/16 04:39 ALT 67 U/L (9-52) H 10/28/16 04:39 Alkaline Phosphatase 122 U/L (38-126) 10/28/16 04:39 Total Protein 6.1 g/dL (6.3-8.2) L 10/28/16 04:39 Albumin 2.4 g/dL (3.5-5.0) L 10/28/16 04:39 Urine Color Light Brown 10/27/16 11:49 Urine Appearance Clear (Clear) 10/27/16 11:49 Urine pH 5.5 (5.0-8.0) 10/27/16 11:49 Ur Specific [place] 1.017 (1.001-1.035) 10/27/16 11:49 Urine Protein Trace (Negative) H 10/27/16 11:49 Urine Glucose (UA) Negative (Negative) 10/27/16 11:49 Urine Ketones Negative (Negative) 10/27/16 11:49 Urine Blood Negative (Negative) 10/27/16 11:49 Urine Nitrite Negative (Negative) 10/27/16 11:49 Urine Bilirubin 1+ (Negative) H 10/27/16 11:49 Urine Urobilinogen 6.0 mg/dL (<2.0) 10/27/16 11:49 Ur Leukocyte Esterase Negative (Negative) 10/27/16 11:49 Fluid Source Peritoneal 10/27/16 15:10 Fluid Color Yellow 10/27/16 15:10 Fluid Appearance Hazy 10/27/16 15:10 Fluid RBC 19 /uL 10/27/16 15:10 Fluid Nucleated Cells 551 /uL 10/27/16 15:10 Fluid Polynuclear WBCs 92 % 10/27/16 15:10 Fluid Mononuclear WBCs 8 % 10/27/16 15:10 Fluid Comment Few Mesothelial 10/27/16 15:10 Influenza Type A RNA Not Detected (Not Detectd) 10/27/16 10:44 Influenza Type B (PCR) Not Detected (Not Detectd) 10/27/16 10:44 Blood Type O Negative 10/27/16 09:10 Blood Type Recheck No 10/27/16 09:10 Antibody Screen NEGATIVE 10/27/16 09:10 Transfuse Plasma 10/27/16 10/27/16 09:10 Spec Expiration Date 10/30/2016 - 230910/27/16 09:10 Microbiology 10/27/16 14:21 Blood Blood Culture - Preliminary No Growth after 48 hours 10/27/16 09:10 Blood Blood Culture - Preliminary No Growth after 48 hours 10/27/16 11:49 Urine,Catheterized Urine Culture - Final 10/27/16 15:10 Peritoneal Fluid Gram Stain - Preliminary 10/27/16 15:10 Peritoneal Fluid Body Fluid Culture - Preliminary 10/27/16 15:10 Peritoneal Fluid Anaerobic Culture - Preliminary Assessment and Plan (1) Alcoholic hepatitis with ascites Status: Acute (2) Coagulopathy Status: Acute (3) Spontaneous bacterial peritonitis Status: Acute Plan: 46-year-old woman presents to hospital with increasing worsening ascites and generalized malaise and some shortness of breath with cough. Also had a fever. She's had a paracentesis performed. There is a large amount of white cells. Gram stain is negative and cultures are pending. She is an appropriate antibiotic therapy at this point in time with Rocephin and metronidazole. Cultures are in process. Continue current antibiotics, change to cipro for home The patient was having some breathing difficulties it improved with her paracentesis As the patient improves and she transitions to home after a course of oral antibiotic therapy to complete the treatment of her spontaneous bacterial peritonitis. Wonder if she would be a good candidate for an oral nonabsorbable antibiotic therapy to prevent further bouts of this given her advanced liver disease and now about of SBP. Overall prognosis is poor. She is following with the local well flow operator. With her active alcohol use likely not a candidate for being evaluated for transplant center but if she worsens may need to be considered.
--- NOTE | 2016-10-29 18:11 | PN ---
DATE OF SERVICE: 10/29/2016 This patient is a 46-year-old white female with a history of alcoholic cirrhosis and acute alcoholic hepatitis, admitted to the hospital with fever, chills and abdominal distention. She is on broad-spectrum antibiotics for possible SBP, and in the meantime she also underwent large-volume paracentesis on the day of admission to the hospital. Cultures are still pending. She was evaluated by Dr. Mauricio yesterday. She is feeling much better today. She still has some abdominal distention. No nausea or vomiting. Tolerating diet well. On physical examination she appears comfortable, in no apparent distress. Vitals as are stable. Blood pressure is 106/68, pulse rate 92, temperature 99.1. HEENT EXAMINATION: Unremarkable. Conjunctivae pink. Sclerae anicteric. Oral cavity with no lesions. NECK: No JVD or lymph node enlargement. Chest was clear to auscultation. ABDOMEN: Distended but it is tympanic, nontender. Liver and spleen are not palpable. EXTREMITIES: No pedal edema. SKIN: No rashes. NEURO: She is alert and oriented x3. No focal deficits. LABS DONE FROM TODAY: WBC 12.9, hemoglobin 10, platelets 69. INR 2.2. T-bili 7.3. AST 73, ALT 67. Alkaline phosphatase is 122. Fluid cultures so far negative. IMPRESSION: 1. Alcoholic cirrhosis of the liver with acute alcoholic hepatitis. 2. Ascites, status post large-volume paracentesis. 3. Fever, chills and leukocytosis, possibly SBP, on broad-spectrum antibiotics with Rocephin and Flagyl. Dr. Mauricio is following the patient closely. She is also on Lasix and Aldactone for ascites. 4. Thrombocytopenia secondary to cirrhosis/portal hypertension/hypersplenism. RECOMMENDATIONS: 1. Continue with Lasix as well as Aldactone. 2. Low-salt diet. 3. Continue with broad-spectrum antibiotics. 4. Advance diet as tolerated. 5. Will continue to follow the patient closely during her hospital stay.
[2016-10-30] MEDS: MORPHINE SULFATE 4 MG/ML SYRINGE IV PRN ×4 (01:23→16:47)
[2016-10-30 07:50] LABS: Anisocytosis Slight; Basophils % (A) 0 %; CH 36.7; CHCM 33.3; Eosinophils # (A) 0.3 k/uL (0-0.7); Eosinophils % (A) 4 %; HCT 30.5 % (34.0-46.0); HDW 2.45; Luc # (Auto) 0.16; Luc % (Auto) 3; Lymphocytes # (A) 1.2 k/uL (1.0-4.8); Lymphocytes % (A) 20 %; MCH 36.2 pg (25.0-35.0); MCHC 32.8 g/dL (31.0-37.0); MCV 110.7 fL (80.0-100.0); Macrocytosis Marked; Mean Platelet Volume 7.6; Monocytes # (A) 0.3 k/uL (0-1.0); Monocytes % (A) 6 %; Neutrophils # (A) 4.2 k/uL (1.3-7.7); Neutrophils % (A) 68 %; RBC 2.75 m/uL (3.80-5.40); RDW 16.2 % (11.5-15.5); WBC 6.1 k/uL (3.8-10.6); WBC (Perox) 6.54
[2016-10-30] MEDS: cefTRIAXone 2,000 MG in SODIUM CHLORIDE 0.9% 100 ML IVPB SCH (08:01)
[2016-10-30 08:06] LABS: ALT 62 U/L (9-52); AST 62 U/L (14-36); Alkaline Phosphatase 109 U/L (38-126); Anion Gap 7 mmol/L; Blood Urea Nitrogen 9 mg/dL (7-17); Calcium 7.5 mg/dL (8.4-10.2); Carbon Dioxide 30 mmol/L (22-30); Chloride 94 mmol/L (98-107); Glucose 83 mg/dL (74-99); Non-African American GFR(MDRD) >60 (>60 ml/min/1.73 sqM); Sodium 131 mmol/L (137-145); Total Bilirubin 6.8 mg/dL (0.2-1.3); Total Protein 6.2 g/dL (6.3-8.2)
[2016-10-30 08:15] LABS: Potassium 2.9 mmol/L (3.5-5.1)
[2016-10-30 08:22] LABS: Manual Review Performed; Target Cells Present
[2016-10-30] MEDS: MIDODRINE 5 MG TAB PO SCH ×3 (08:58→16:49)
[2016-10-30] MEDS: PANTOPRAZOLE 40 MG TABLET PO SCH (08:59)
[2016-10-30] MEDS: SPIRONOLACTONE 25 MG TAB PO SCH (08:59)
[2016-10-30] MEDS: THIAMINE 100 MG TAB PO SCH (08:59)
[2016-10-30] MEDS: metroNIDAZOLE 500 MG TAB PO SCH ×3 (08:59→21:26)
[2016-10-30] MEDS: FUROSEMIDE 10 MG/ML 4 ML VIAL IV SCH (09:00)
[2016-10-30] MEDS: POTASSIUM CHLORIDE ER 20 MEQ TAB.ER PO SCH ×3 (10:07→14:22)
[2016-10-30] MEDS: POTASSIUM CHLORIDE 20 MEQ, LIDOCAINE 2% INJ 20 MG in SODIUM CHLORIDE 0.9% 100 ML IVPB SCH ×3 (10:07→14:54)
[2016-10-30] MEDS: SODIUM CHLORIDE 0.9% 1,000 ML IV SCH (12:15)
[2016-10-30] MEDS: SERTRALINE 25 MG TAB PO SCH (12:17)
[2016-10-30] MEDS ORDERED: POTASSIUM CHLORIDE ER 20 MEQ TAB.ER PO STA (14:08)
--- NOTE | 2016-10-30 14:17 | PN ---
DATE OF SERVICE: 10/30/2016 The patient is a 46-year-old with a history of alcoholic cirrhosis, acute alcoholic hepatitis and ascites was admitted to the hospital with fever and possible SBP. She is on broad-spectrum antibiotics and gradually improving. She underwent large volume paracentesis 3 days ago and 3 L of fluid was removed. Cultures so far have been negative. She complains of some fever today. She denies any abdominal pain. No nausea or vomiting. On physical examination, she appears comfortable in no apparent distress. Vital signs are stable. Blood pressure is 177/62, pulse rate 100, T-max 99.6. HEENT EXAMINATION: Unremarkable. Conjunctivae pink. Sclerae anicteric. Oral cavity, no lesions. NECK: No JVD or lymph node enlargement. Chest was clear to auscultation. HEART: Regular rate and rhythm. ABDOMEN: Slightly distended, but small amount of free fluid noted. EXTREMITIES: No pedal edema. SKIN: No rashes. NEURO: Alert and oriented x3. No focal deficits. Labs from today, WBC is 6.1, hemoglobin 10, platelets are 71, potassium 2.9, T-bili 6.8, AST 62, ALT 62, and alk phos 109. IMPRESSION: 1. Fever, leukocytosis, possible spontaneous bacterial peritonitis on Flagyl as well as Rocephin, doing better. 2. Acute alcoholic hepatitis. She quit drinking about 50 days ago. 3. Alcoholic cirrhosis of the liver. 4. Ascites, status post large volume paracentesis 3 days ago, presently on Lasix and Aldactone. RECOMMENDATIONS: 1. Continue with broad-spectrum antibiotics. 2. Replace potassium. 3. Advance diet as tolerated. 4. Will follow her closely during her hospital stay.
--- NOTE | 2016-10-30 17:25 | P.PN ---
Subjective 46-year-old female with history of alcoholic cirrhosis currently maintained on Lasix milligrams by mouth twice a day and aspart elective 50 mg by mouth daily comes in to the hospital with complaints of progressive worsening of pain in her abdomen associated with distention. However patient noted multiple episodes of fevers during the same period of time hence was admitted to the hospital. Patient apparently has to episodes of paracentesis so far. Including one today. Patient was noted to have liver cirrhosis secondary to alcohol use has not had any intake and over 45 days according to her. Patient states that over the last few days her belly has been progressively distended and was associated with the pain. States that she has had a fever at home on admission patient was also noted to have a fever greater than 101.5 in the hospital. Patient's INR was elevated did receive FFP and thereafter underwent 3 L of fluid removal from the abdomen. Currently states that she is feeling better. However apparently during the period of being febrile patient was confused according to the family member that was at bedside. States that she is slightly improved however has tenderness to palpation of her belly. 10/28/2016 Patient apparently had a slightly low blood pressure was thereafter triaged to the intensive care unit for closer monitoring. Today patient complains of abdominal pain diffuse in nature no fevers chills nausea vomiting or diarrhea. 10/29/16 states to have chills this am abdominal discomfort is improving no other issues reported. 10/30/16 feeling better states to be weak no chills, nausea, vomiting reported. Objective - Vital Signs Vital signs: Vital Signs Temp 103 F H 10/30/16 16:46 Pulse 92 10/30/16 16:46 Resp 16 10/30/16 16:46 BP 104/62 10/30/16 16:46 Pulse Ox 91 L 10/30/16 16:46 Intake & Output 10/29/16 10/30/16 10/30/16 18:59 06:59 18:59 Intake Total 845 200 840 Output Total 4170 1975 4495 Balance -2556 -1730 -433 Weight 61.5 kg 59 kg Intake: IV 125 100 Sodium Chloride 0.9% 1, 125 000 ml @ 20 mls/hr IV . Q24H [facility] Rx#:[id number] cefTRIAXone 2,000 mg In 100 Sodium Chloride 0.9% 100 ml @ 100 mls/hr IVPB Q12HR [facility] Rx#:[id number] Intake, IV Titration 100 100 Amount Potassium Chloride 20 meq 100 Lidocaine 2% Inj 20 mg In Sodium Chloride 0.9% 100 ml @ 55.5 mls/hr IVPB Q2HR [facility] Rx#:[id number] cefTRIAXone 2,000 mg In 100 Sodium Chloride 0.9% 100 ml @ 100 mls/hr IVPB Q12HR [facility] Rx#:[id number] Oral 620 200 640 Output: Urine 2120 1975 1200 Other: Voiding Method Toilet Toilet Toilet # Voids 1 1 1 - Exam Physical exam Gen. appearance oriented 3 in no distress Neck is supple no JVD Lungs good air entry clear to auscultation no rhonchi or wheezing Heart S1-S2 heard regular rate and rhythm no murmurs appreciated Abdomen diffusely tender distended dull to percussion, improving. Neurologically cranial nerves II-12 grossly intact no focal motor or sensory deficits noted Skin no abnormalities appreciated - Labs CBC & Chem 7: 10/30/16 06:54 10/30/16 06:54 Labs: Abnormal Lab Results - Last 24 Hours (Table) 10/30/16 10/30/16 Range/Units 06:54 06:54 RBC 2.75 L (3.80-5.40) m/uL Hgb 10.0 L (11.4-16.0) gm/dL Hct 30.5 L (34.0-46.0) % MCV 110.7 H (80.0-100.0) fL MCH 36.2 H (25.0-35.0) pg RDW 16.2 H (11.5-15.5) % Plt Count 71 L (150-450) k/uL Sodium 131 L (137-145) mmol/L Potassium 2.9 L* (3.5-5.1) mmol/L Chloride 94 L (98-107) mmol/L Creatinine 0.49 L (0.52-1.04) mg/dL Calcium 7.5 L (8.4-10.2) mg/dL Total Bilirubin 6.8 H (0.2-1.3) mg/dL AST 62 H (14-36) U/L ALT 62 H (9-52) U/L Total Protein 6.2 L (6.3-8.2) g/dL Albumin 2.4 L (3.5-5.0) g/dL Microbiology - Last 24 Hours (Table) 10/27/16 14:21 Blood Culture - Preliminary Blood No Growth after 72 hours 10/27/16 15:10 Anaerobic Culture - Preliminary Peritoneal Fluid 10/27/16 15:10 Gram Stain - Preliminary Peritoneal Fluid Body Fluid Culture - Preliminary Assessment and Plan Plan: #1 sepsis secondary to spontaneous bacterial peritonitis #2 chronic thrombocytopenia secondary to alcohol use #3 slightly decompensated liver cirrhosis #4 hypokalemia #5 acute metabolic encephalopathy #6 depression Coagulopathy secondary to above Plan continue Rocephin Flagyl. Continue diuretics. change to lasix 40mg po bid k is replaced repeat levels in the am Improving, likely dc home on cipro flagyl for a total of 14 days dc iv pain meds Patient is to continue fluid resections of 1.5 L. Protein intake. Continue vitamin K at this time.
[2016-10-31] MEDS: oxyCODONE-APAP 7.5-325MG 1 EACH TAB PO PRN ×4 (00:57→18:11)
[2016-10-31 07:06] LABS: Anisocytosis Slight; Basophils % (A) 1 %; CH 35.9; CHCM 32.7; Eosinophils # (A) 0.2 k/uL (0-0.7); Eosinophils % (A) 5 %; HDW 2.36; Luc # (Auto) 0.14; Luc % (Auto) 3; Lymphocytes # (A) 1.2 k/uL (1.0-4.8); Lymphocytes % (A) 23 %; MCH 35.7 pg (25.0-35.0); MCHC 32.3 g/dL (31.0-37.0); MCV 110.4 fL (80.0-100.0); Macrocytosis Marked; Mean Platelet Volume 7.4; Monocytes # (A) 0.3 k/uL (0-1.0); Monocytes % (A) 6 %; Neutrophils # (A) 3.2 k/uL (1.3-7.7); Neutrophils % (A) 63 %; RBC 2.81 m/uL (3.80-5.40); RDW 16.1 % (11.5-15.5)
[2016-10-31] MEDS: PANTOPRAZOLE 40 MG TABLET PO SCH (07:14)
[2016-10-31] MEDS: MIDODRINE 5 MG TAB PO SCH ×3 (07:14→17:08)
[2016-10-31] MEDS: SPIRONOLACTONE 25 MG TAB PO SCH (07:14)
[2016-10-31] MEDS: THIAMINE 100 MG TAB PO SCH (07:14)
[2016-10-31] MEDS: FUROSEMIDE 40 MG TAB PO SCH ×2 (07:15→17:08)
[2016-10-31] MEDS: metroNIDAZOLE 500 MG TAB PO SCH ×3 (07:15→20:59)
[2016-10-31 07:25] LABS: ALT 48 U/L (9-52); AST 52 U/L (14-36); Alkaline Phosphatase 134 U/L (38-126); Anion Gap 7 mmol/L; Blood Urea Nitrogen 9 mg/dL (7-17); Calcium 7.6 mg/dL (8.4-10.2); Carbon Dioxide 30 mmol/L (22-30); Chloride 98 mmol/L (98-107); Glucose 126 mg/dL (74-99); Magnesium 1.8 mg/dL (1.6-2.3); Non-African American GFR(MDRD) >60 (>60 ml/min/1.73 sqM); Potassium 3.3 mmol/L (3.5-5.1); Sodium 135 mmol/L (137-145); Total Bilirubin 5.4 mg/dL (0.2-1.3); Total Protein 6.1 g/dL (6.3-8.2)
[2016-10-31 07:35] VITALS: RESP 16
[2016-10-31] MEDS: SERTRALINE 25 MG TAB PO SCH (12:02)
[2016-10-31] MEDS: SODIUM CHLORIDE 0.9% 1,000 ML IV SCH (12:03)
--- NOTE | 2016-10-31 12:15 | PN ---
DATE OF SERVICE: 10/31/2016 The patient is a 46-year-old pleasant lady admitted to the hospital with abdominal pain, ascites, fever, and possible SBP. She has been on Flagyl since admission to the hospital and was gradually improving. However, yesterday she developed a fever with a T-max of 103, but she denies any abdominal pain. She denies any coughing. No shortness of breath. This morning she has a low-grade fever of 99. Overall she states she is feeling much better. On physical examination, she appears comfortable, in no apparent distress. Vital signs are stable. T-max 103, temperature this morning is 100.2. Blood pressure 104/62, pulse rate 82. HEENT: Unremarkable. Conjunctivae pink. Sclerae anicteric. Oral cavity, no lesions. NECK: No JVD or lymph node enlargement to auscultation. HEART: Regular rate and rhythm. ABDOMEN: Soft. It was slightly distended but very tympanic. No free fluid appreciated. EXTREMITIES: No pedal edema. SKIN: No rashes. NEURO: She is alert and oriented x3. No focal deficits. Labs done this morning, WBC 5, hemoglobin 11, platelets 70, T-bili is down to 5.4, AST 52, ALT 48. Basic metabolic panel is within normal limits. IMPRESSION: 1. Possible spontaneous bacterial peritonitis (SBP), on Rocephin and Flagyl. 2. Fever for the last [address] Mauricio is following the patient. 3. Acute alcoholic hepatitis. Liver perimeters are gradually improving. 4. Alcoholic cirrhosis of the liver. The patient has been abstinent from alcohol for close to 2 months now. RECOMMENDATIONS: Continue with broad-spectrum antibiotics. We will await further recommendations from ID. continue to the diuretic regimen. We will follow with you closely.
[2016-10-31] MEDS ORDERED: FUROSEMIDE 10 MG/ML 4 ML VIAL IV STA (13:09)
--- NOTE | 2016-10-31 15:56 | P.PN ---
Subjective 46-year-old female with history of alcoholic cirrhosis currently maintained on Lasix milligrams by mouth twice a day and aspart elective 50 mg by mouth daily comes in to the hospital with complaints of progressive worsening of pain in her abdomen associated with distention. However patient noted multiple episodes of fevers during the same period of time hence was admitted to the hospital. Patient apparently has to episodes of paracentesis so far. Including one today. Patient was noted to have liver cirrhosis secondary to alcohol use has not had any intake and over 45 days according to her. Patient states that over the last few days her belly has been progressively distended and was associated with the pain. States that she has had a fever at home on admission patient was also noted to have a fever greater than 101.5 in the hospital. Patient's INR was elevated did receive FFP and thereafter underwent 3 L of fluid removal from the abdomen. Currently states that she is feeling better. However apparently during the period of being febrile patient was confused according to the family member that was at bedside. States that she is slightly improved however has tenderness to palpation of her belly. 10/28/2016 Patient apparently had a slightly low blood pressure was thereafter triaged to the intensive care unit for closer monitoring. Today patient complains of abdominal pain diffuse in nature no fevers chills nausea vomiting or diarrhea. 10/29/16 states to have chills this am abdominal discomfort is improving no other issues reported. 10/30/16 feeling better states to be weak no chills, nausea, vomiting reported. 10/31/16 feels better no fevers, chills, nausea, vomiting. abdominal pain is improved. Objective - Vital Signs Vital signs: Vital Signs Temp 99.1 F 10/31/16 15:00 Pulse 71 10/31/16 15:00 Resp 16 10/31/16 15:00 BP 100/57 10/31/16 15:00 Pulse Ox 95 10/31/16 15:00 Intake & Output 10/30/16 10/31/16 10/31/16 18:59 06:59 18:59 Intake Total 840 260 560 Output Total 4139 464 2931 Balance -806 -568 -506 Weight 59 kg 75.5 kg 75.5 kg Intake: IV 100 160 220 Sodium Chloride 0.9% 1, 160 120 000 ml @ 20 mls/hr IV . Q24H [facility] Rx#:[id number] cefTRIAXone 2,000 mg In 100 100 Sodium Chloride 0.9% 100 ml @ 100 mls/hr IVPB Q12HR [facility] Rx#:[id number] Intake, IV Titration 100 Amount Potassium Chloride 20 meq 100 Lidocaine 2% Inj 20 mg In Sodium Chloride 0.9% 100 ml @ 55.5 mls/hr IVPB Q2HR [facility] Rx#:[id number] Oral 640 100 340 Output: Urine 4047 760 0383 Other: Voiding Method Toilet Toilet Toilet # Voids 1 4 - Exam Physical exam Gen. appearance oriented 3 in no distress Neck is supple no JVD Lungs good air entry clear to auscultation no rhonchi or wheezing Heart S1-S2 heard regular rate and rhythm no murmurs appreciated Abdomen non tender today, distended. bowel sounds intact. Neurologically cranial nerves II-12 grossly intact no focal motor or sensory deficits noted Skin no abnormalities appreciated - Labs CBC & Chem 7: 10/31/16 06:35 10/31/16 06:35 Labs: Abnormal Lab Results - Last 24 Hours (Table) 10/31/16 10/31/16 Range/Units 06:35 06:35 RBC 2.81 L (3.80-5.40) m/uL Hgb 10.0 L (11.4-16.0) gm/dL Hct 31.0 L (34.0-46.0) % MCV 110.4 H (80.0-100.0) fL MCH 35.7 H (25.0-35.0) pg RDW 16.1 H (11.5-15.5) % Plt Count 70 L (150-450) k/uL Sodium 135 L (137-145) mmol/L Potassium 3.3 L (3.5-5.1) mmol/L Creatinine 0.49 L (0.52-1.04) mg/dL Glucose 126 H (74-99) mg/dL Calcium 7.6 L (8.4-10.2) mg/dL Total Bilirubin 5.4 H (0.2-1.3) mg/dL AST 52 H (14-36) U/L Alkaline Phosphatase 134 H (38-126) U/L Total Protein 6.1 L (6.3-8.2) g/dL Albumin 2.3 L (3.5-5.0) g/dL Microbiology - Last 24 Hours (Table) 10/27/16 15:10 Gram Stain - Preliminary Peritoneal Fluid Body Fluid Culture - Preliminary 10/27/16 14:21 Blood Culture - Preliminary Blood No Growth after 72 hours Assessment and Plan Plan: #1 sepsis secondary to spontaneous bacterial peritonitis #2 chronic thrombocytopenia secondary to alcohol use #3 slightly decompensated liver cirrhosis #4 hypokalemia #5 acute metabolic encephalopathy #6 depression Coagulopathy secondary to above Plan continue Rocephin Flagyl. Continue diuretics. lasix 40mg po bid K replacement one dose of iv lasix 40mg repeat levels in the am Improving, likely dc home on cipro flagyl for a total of 14 days Patient is to continue fluid resections of 1.5 L. Protein intake. Continue vitamin K at this time.
[2016-11-01] MEDS: oxyCODONE-APAP 7.5-325MG 1 EACH TAB PO PRN ×3 (04:48→15:17)
[2016-11-01] MEDS: SPIRONOLACTONE 25 MG TAB PO SCH (07:45)
[2016-11-01] MEDS: metroNIDAZOLE 500 MG TAB PO SCH (07:45)
[2016-11-01] MEDS: MIDODRINE 5 MG TAB PO SCH ×2 (07:46→12:25)
[2016-11-01] MEDS: FUROSEMIDE 40 MG TAB PO SCH (07:46)
[2016-11-01] MEDS: PANTOPRAZOLE 40 MG TABLET PO SCH (07:46)
[2016-11-01] MEDS: THIAMINE 100 MG TAB PO SCH (07:47)
[2016-11-01 07:52] LABS: ALT 53 U/L (9-52); AST 64 U/L (14-36); Alkaline Phosphatase 136 U/L (38-126); Anion Gap 6 mmol/L; Blood Urea Nitrogen 9 mg/dL (7-17); Calcium 7.5 mg/dL (8.4-10.2); Carbon Dioxide 32 mmol/L (22-30); Chloride 96 mmol/L (98-107); Glucose 96 mg/dL (74-99); Non-African American GFR(MDRD) >60 (>60 ml/min/1.73 sqM); Potassium 3.1 mmol/L (3.5-5.1); Sodium 134 mmol/L (137-145); Total Bilirubin 5.9 mg/dL (0.2-1.3); Total Protein 6.5 g/dL (6.3-8.2)
[2016-11-01 07:54] LABS: Basophils % (A) 1 %; CH 36.8; CHCM 33.9; Eosinophils # (A) 0.3 k/uL (0-0.7); Eosinophils % (A) 5 %; HCT 32.1 % (34.0-46.0); HDW 2.51; HGB 10.8 gm/dL (11.4-16.0); Luc # (Auto) 0.16; Luc % (Auto) 3; Lymphocytes # (A) 1.3 k/uL (1.0-4.8); Lymphocytes % (A) 26 %; MCH 36.7 pg (25.0-35.0); MCHC 33.6 g/dL (31.0-37.0); MCV 109.1 fL (80.0-100.0); Macrocytosis Marked; Mean Platelet Volume 7.6; Monocytes # (A) 0.3 k/uL (0-1.0); Monocytes % (A) 5 %; Neutrophils # (A) 3.1 k/uL (1.3-7.7); Neutrophils % (A) 61 %; RBC 2.94 m/uL (3.80-5.40); RDW 15.6 % (11.5-15.5); WBC 5.1 k/uL (3.8-10.6); WBC (Perox) 5.58
[2016-11-01 08:40] LABS: Polychromasia Present; Target Cells Present
[2016-11-01 10:02] LABS: Magnesium 1.6 mg/dL (1.6-2.3); Phosphorous 3.2 mg/dL (2.5-4.5)
[2016-11-01] MEDS: POTASSIUM CHLORIDE ER 20 MEQ TAB.ER PO SCH ×2 (10:03→12:25)
[2016-11-01] MEDS: MAGNESIUM SULFATE-D5W PMX 1 GM in DEXTROSE/WATER 1 100ML.BAG IVPB SCH ×2 (12:24→13:54)
[2016-11-01] MEDS: SERTRALINE 25 MG TAB PO SCH (12:25)
[2016-11-01 16:16] VITALS: BP 102/60; PULSE 87; TEMP 98.3
--- NOTE | 2016-11-01 17:51 | P.DS ---
Providers Date of admission: 10/27/16 11:47 Attending physician: Betty Giordano Consults: 10/27/16 20:51 Consult Physician Stat Consulting Provider: Ophelia Banegas Consult Reason/Comments: ICU managment Do you want consulting provider notified?: Yes 10/28/16 14:44 Consult Physician Routine Consulting Provider: Dean Mauricio Consult Reason/Comments: sbp/sepsis Do you want consulting provider notified?: Yes, Notify in am Primary care physician: Jamison Turcios Hospital Course: 46-year-old female with history of alcoholic cirrhosis currently maintained on Lasix milligrams by mouth twice a day and aspart elective 50 mg by mouth daily comes in to the hospital with complaints of progressive worsening of pain in her abdomen associated with distention. However patient noted multiple episodes of fevers during the same period of time hence was admitted to the hospital. Patient apparently has to episodes of paracentesis so far. Including one today. Patient was noted to have liver cirrhosis secondary to alcohol use has not had any intake and over 45 days according to her. Patient states that over the last few days her belly has been progressively distended and was associated with the pain. States that she has had a fever at home on admission patient was also noted to have a fever greater than 101.5 in the hospital. Patient's INR was elevated did receive FFP and thereafter underwent 3 L of fluid removal from the abdomen. Currently states that she is feeling better. However apparently during the period of being febrile patient was confused according to the family member that was at bedside. States that she is slightly improved however has tenderness to palpation of her belly. 10/28/2016 Patient apparently had a slightly low blood pressure was thereafter triaged to the intensive care unit for closer monitoring. Today patient complains of abdominal pain diffuse in nature no fevers chills nausea vomiting or diarrhea. 10/29/16 states to have chills this am abdominal discomfort is improving no other issues reported. 10/30/16 feeling better states to be weak no chills, nausea, vomiting reported. 10/31/16 feels better no fevers, chills, nausea, vomiting. abdominal pain is improved. - Exam Physical exam Gen. appearance oriented 3 in no distress Neck is supple no JVD Lungs good air entry clear to auscultation no rhonchi or wheezing Heart S1-S2 heard regular rate and rhythm no murmurs appreciated Abdomen non tender today, distended. bowel sounds intact. Neurologically cranial nerves II-12 grossly intact no focal motor or sensory deficits noted Skin no abnormalities appreciated Assessment and Plan Plan: #1 sepsis secondary to spontaneous bacterial peritonitis #2 chronic thrombocytopenia secondary to alcohol use #3 slightly decompensated liver cirrhosis #4 hypokalemia #5 acute metabolic encephalopathy #6 depression Coagulopathy secondary to above dc home on cipro flagyl for a total of 14 days lasix 40mg po bid kcl 20meq tid. pt is given a prescription for paracentesis, however discussed to not undergo the procedure, unless noted to have tense ascites. spirinolactone 100mg daily follow up with GI in 1 week Patient is to continue fluid resections of 1.5 L. Protein intake. Continue vitamin K at this time. Patient Condition at Discharge: Serious Plan - Discharge Summary New Discharge Prescriptions: Ciprofloxacin HCl [Cipro] 500 mg PO Q12HR #20 tablet Furosemide [Lasix] 40 mg PO BID@0900,1600 #60 tab Hydrocodone/Acetaminophen [[place] 5-325] 1 tab PO Q4HR PRN #30 tablet PRN Reason: Pain Midodrine [ProAmatine] 5 mg PO AC-TID #30 tab Pantoprazole [Protonix] 40 mg PO AC-BRKFST #30 tablet.dr Potassium Chloride ER [K-Dur 20] 20 mg PO TID #60 tab.er.prt Spironolactone [Aldactone] 50 mg PO DAILY #30 tab metroNIDAZOLE [Flagyl] 500 mg PO TID #30 tab Discharge Medication List Sertraline [Zoloft] 25 mg PO DAILY@1200 10/01/16 [History] Thiamine [Vitamin B-1] 100 mg PO DAILY #30 tab 10/06/16 [Rx] Multivitamins, Thera [Multivitamin (formulary)] 1 tab PO DAILY@1200 10/21/16 [ History] Saline Nasal [place] 2 spray NASAL DAILY PRN 10/21/16 [History] Phytonadione [Vitamin K] 1 mg PO DAILY 10/25/16 [History] Ciprofloxacin HCl [Cipro] 500 mg PO Q12HR #20 tablet 11/01/16 [Rx] Furosemide [Lasix] 40 mg PO BID@0900,1600 #60 tab 11/01/16 [Rx] Hydrocodone/Acetaminophen [[place] 5-325] 1 tab PO Q4HR PRN #30 tablet 11/01/16 [ Rx] Midodrine [ProAmatine] 5 mg PO AC-TID #30 tab 11/01/16 [Rx] Pantoprazole [Protonix] 40 mg PO AC-BRKFST #30 tablet. 11/01/16 [Rx] Potassium Chloride ER [K-Dur 20] 20 mg PO TID #60 tab.er.prt 11/01/16 [Rx] Spironolactone [Aldactone] 50 mg PO DAILY #30 tab 11/01/16 [Rx] metroNIDAZOLE [Flagyl] 500 mg PO TID #30 tab 11/01/16 [Rx] Follow up Appointment(s)/Referral(s): Estee Jauregui MD [STAFF PHYSICIAN] - 11/18/16 1:30 pm Jamison Turcios MD [Primary Care Provider] - 1-2 days (Dr. Turcios's office will call patient with an appointment date and time.) Ambulatory/Diagnostic Orders: Miscellaneous Radiology Order [RAD.AMB] Location: Determined By Patient Patient Instructions/Handouts: Ciprofloxacin (By mouth), Spironolactone (By mouth), Furosemide (By mouth), Hydrocodone/Acetaminophen (By mouth), Potassium Chloride (By mouth), Metronidazole (By mouth), Midodrine (By mouth), Pantoprazole (By mouth), Sepsis (GEN), Ascites (DC) Discharge Disposition: HOME SELF-CARE
== END 2016-11-01 16:00 | disposition home or self-care (01) | DRG 871 ==
LOC: EC 09:08 → 4MS4W 11:47 → 6ICU 21:10 → 5MS5E 10-28 15:44
PROVIDERS: ADMIT Internal Medicine; ATTEND Internal Medicine
PROC: 0W9G3ZZ Drainage of Peritoneal Cavity, Percutaneous Approach (ICD-10-PCS; principal; 2016-10-28)
DX: A41.9 Sepsis, unspecified organism (principal); G93.41 Metabolic encephalopathy; E87.2 Acidosis; D68.4 Acquired coagulation factor deficiency; K65.2 Spontaneous bacterial peritonitis; K76.6 Portal hypertension; D69.59 Other secondary thrombocytopenia; K70.31 Alcoholic cirrhosis of liver with ascites; K70.11 Alcoholic hepatitis with ascites; D73.1 Hypersplenism; E87.6 Hypokalemia; F10.10 Alcohol abuse, uncomplicated; F32.9 Major depressive disorder, single episode, unspecified; Z79.899 Other long term (current) drug therapy; Z82.49 Family history of ischemic heart disease and other diseases of the circulatory system
CPT/HCPCS: 36415; 36430; 49083; 71010; 71020; 80053; 81003; 82565; 83605; 83735; 84100; 84520; 85025; 85610; 85730; 86850; 86900; 86901; 87040; 87070; 87075; 87086; 87205; 87502; 88108; 88305; 89050; 93005; 94760; 96361; 96365; 96367; 96375; 96376; 99291

== ENCOUNTER 2017-08-28 13:00 | Observation (INO) | payer OTHER ==
[2017-08-28] MEDS ORDERED: SODIUM CHLORIDE 0.9% 1,000 ML IV STA (13:05)
[2017-08-28] MEDS ORDERED: PANTOPRAZOLE 40 MG/10 ML VIAL IVP STA (13:05)
--- NOTE | 2017-08-28 13:09 | ED ---
GI Bleed HPI - General Stated complaint: GI bleed Time Seen by Provider: 08/28/17 13:00 Source: patient, EMS, RN notes reviewed Mode of arrival: EMS - History of Present Illness Initial comments: This is a 46-year-old female history of alcoholic liver disease who states that she drank a bottle of wine last night. She states that throughout the day she had coffee-ground emesis x 1 she has had some lightheadedness also and also black colored stools. She does relate that this is happened before when she drank. She has some nonspecific generalized abdominal discomfort. No shortness breath no cough fevers chills or sweats. MD complaint: coffee ground emesis, melena - Related Data Home Medications Medication Instructions Recorded Confirmed Ascorbic Acid [Vitamin C] 1,000 mg PO DAILY 08/28/17 08/28/17 Vitamin B Complex 1 cap PO DAILY 08/28/17 08/28/17 Allergies Allergy/AdvReac Type Severity Reaction Status Date / Time No Known Allergies Allergy Verified 08/28/17 13:39 Review of Systems ROS Statement: Those systems with pertinent positive or pertinent negative responses have been documented in the HPI. ROS Other: All systems not noted in ROS Statement are negative. Past Medical History Past Medical History: Liver Disease Additional Past Medical History / Comment(s): enlarged liver, alcoholic cirrhosis. History of Any Multi-Drug Resistant Organisms: None Reported Past Surgical History: Section Additional Past Surgical History / Comment(s): Paracentesis Additional Past Anesthesia/Blood Transfusion Reaction / Comment(s): Pt has never had general anesthesia. Past Psychological History: Depression Additional Psychological History / Comment(s): Pt resides with nonfamily member. She is independent. Smoking Status: Never smoker Past Alcohol Use History: Heavy Additional Past Alcohol Use History / Comment(s): Pt states she has not drank alcohol for 45 days. Past Drug Use History: None Reported - Past Family History Sister(s) Family Medical History: Congestive Heart Failure (CHF) Additional Family Medical History / Comment(s): mitral valve prolapse Mother Family Medical History: Eye Disorder Additional Family Medical History / Comment(s): Glaucoma, aneurysm-pt does not know location. Father Family Medical History: No Reported History Additional Family Medical History / Comment(s): Father is healthy General Exam - General Exam Comments Initial Comments: This is a well-developed well-nourished awake alert oriented 3 female General appearance: alert, in no apparent distress Head exam: Present: atraumatic, normocephalic, normal inspection Eye exam: Present: normal appearance, PERRL, EOMI. Absent: scleral icterus, conjunctival injection, periorbital swelling ENT exam: Present: normal exam, mucous membranes moist Neck exam: Present: normal inspection. Absent: tenderness, meningismus, lymphadenopathy Respiratory exam: Present: normal lung sounds bilaterally. Absent: respiratory distress, wheezes, rales, rhonchi, stridor Cardiovascular Exam: Present: regular rate, normal rhythm, normal heart sounds. Absent: systolic murmur, diastolic murmur, rubs, gallop, clicks GI/Abdominal exam: Present: soft, normal bowel sounds. Absent: distended, tenderness, guarding, rebound, rigid Extremities exam: Present: normal inspection, full ROM, normal capillary refill. Absent: tenderness, pedal edema, joint swelling, calf tenderness Back exam: Present: normal inspection Neurological exam: Present: alert, oriented X3, CN II-XII intact Psychiatric exam: Present: normal affect, normal mood Skin exam: Present: warm, dry, intact, normal color. Absent: rash Course Vital Signs 08/28/17 08/28/17 08/28/17 13:07 14:04 16:01 Temperature 98.0 F Pulse Rate 89 84 89 Respiratory 18 16 16 Rate Blood Pressure 116/62 109/85 102/59 O2 Sat by Pulse 94 L 95 94 L Oximetry Medical Decision Making - Medical Decision Making I did discuss findings with the patient and with Dr. Donaldson. Dr. Jauregui will be consulted. - Lab Data Result diagrams: 08/28/17 13:15 08/28/17 13:15 Lab Results 08/28/17 08/28/17 08/28/17 Range/Units 13:15 13:15 13:15 WBC 10.0 (3.8-10.6) k/uL RBC 3.54 L (3.80-5.40) m/uL Hgb 12.2 (11.4-16.0) gm/dL Hct 36.6 (34.0-46.0) % MCV 103.3 H (80.0-100.0) fL MCH 34.5 (25.0-35.0) pg MCHC 33.4 (31.0-37.0) g/dL RDW 13.5 (11.5-15.5) % Plt Count 142 L (150-450) k/uL Neutrophils % 75 % Lymphocytes % 15 % Monocytes % 6 % Eosinophils % 1 % Basophils % 1 % Neutrophils # 7.6 (1.3-7.7) k/uL Lymphocytes # 1.5 (1.0-4.8) k/uL Monocytes # 0.6 (0-1.0) k/uL Eosinophils # 0.1 (0-0.7) k/uL Basophils # 0.1 (0-0.2) k/uL Macrocytosis Slight PT (9.0-12.0) sec INR (<1.2) APTT (22.0-30.0) sec Sodium 141 (137-145) mmol/L Potassium 3.5 (3.5-5.1) mmol/L Chloride 98 (98-107) mmol/L Carbon Dioxide 30 (22-30) mmol/L Anion Gap 13 mmol/L BUN 26 H (7-17) mg/dL Creatinine 0.60 (0.52-1.04) mg/dL Est GFR (MDRD) Af Amer >60 (>60 ml/min/1.73 sqM) Est GFR (MDRD) Non-Af >60 (>60 ml/min/1.73 sqM) Glucose 129 H (74-99) mg/dL Calcium 8.9 (8.4-10.2) mg/dL Magnesium 1.6 (1.6-2.3) mg/dL Total Bilirubin 3.1 H (0.2-1.3) mg/dL AST 114 H (14-36) U/L ALT 55 H (9-52) U/L Alkaline Phosphatase 126 (38-126) U/L Total Creatine Kinase 145 H (30-135) U/L CK-MB (CK-2) 0.7 (0.0-2.4) ng/mL CK-MB (CK-2) Rel Index 0.5 Troponin I <0.012 (0.000-0.034) ng/mL Total Protein 7.7 (6.3-8.2) g/dL Albumin 3.5 (3.5-5.0) g/dL Lipase 108 (23-300) U/L Stool Occult Blood (Negative) Serum Alcohol 42 mg/dL Blood Type Blood Type Recheck Antibody Screen Antibody Identification Direct Antiglob Test Spec Expiration Date 08/28/17 08/28/17 08/28/17 Range/Units 13:15 13:15 13:15 WBC (3.8-10.6) k/uL RBC (3.80-5.40) m/uL Hgb (11.4-16.0) gm/dL Hct (34.0-46.0) % MCV (80.0-100.0) fL MCH (25.0-35.0) pg MCHC (31.0-37.0) g/dL RDW (11.5-15.5) % Plt Count (150-450) k/uL Neutrophils % % Lymphocytes % % Monocytes % % Eosinophils % % Basophils % % Neutrophils # (1.3-7.7) k/uL Lymphocytes # (1.0-4.8) k/uL Monocytes # (0-1.0) k/uL Eosinophils # (0-0.7) k/uL Basophils # (0-0.2) k/uL Macrocytosis PT 19.1 H (9.0-12.0) sec INR 2.1 H (<1.2) APTT 30.6 H (22.0-30.0) sec Sodium (137-145) mmol/L Potassium (3.5-5.1) mmol/L Chloride (98-107) mmol/L Carbon Dioxide (22-30) mmol/L Anion Gap mmol/L BUN (7-17) mg/dL Creatinine (0.52-1.04) mg/dL Est GFR (MDRD) Af Amer (>60 ml/min/1.73 sqM) Est GFR (MDRD) Non-Af (>60 ml/min/1.73 sqM) Glucose (74-99) mg/dL Calcium (8.4-10.2) mg/dL Magnesium (1.6-2.3) mg/dL Total Bilirubin (0.2-1.3) mg/dL AST (14-36) U/L ALT (9-52) U/L Alkaline Phosphatase (38-126) U/L Total Creatine Kinase (30-135) U/L CK-MB (CK-2) (0.0-2.4) ng/mL CK-MB (CK-2) Rel Index Troponin I (0.000-0.034) ng/mL Total Protein (6.3-8.2) g/dL Albumin (3.5-5.0) g/dL Lipase (23-300) U/L Stool Occult Blood Positive H (Negative) Serum Alcohol mg/dL Blood Type O Negative Blood Type Recheck No Antibody Screen POSITIVE Antibody Identification Clin Significant ABs Ruled Out Direct Antiglob Test Negative Spec Expiration Date 08/31/2017 - 4342 - Radiology Data Radiology results: report reviewed (I did review the imaging and reports no acute findings.), image reviewed Disposition Clinical Impression: GI bleeding, Melena Disposition: ADMITTED IP TO THIS [facility] Condition: Stable Referrals: Nonstaff,Physician [REFERRING] - 1-2 days
[2017-08-28 13:30] LABS: Basophils # (A) 0.1 k/uL (0-0.2); Basophils % (A) 1 %; Eosinophils # (A) 0.1 k/uL (0-0.7); Eosinophils % (A) 1 %; HCT 36.6 % (34.0-46.0); HGB 12.2 gm/dL (11.4-16.0); Lymphocytes # (A) 1.5 k/uL (1.0-4.8); Lymphocytes % (A) 15 %; MCH 34.5 pg (25.0-35.0); MCHC 33.4 g/dL (31.0-37.0); MCV 103.3 fL (80.0-100.0); Macrocytosis Slight; Mean Platelet Volume 7.6; Monocytes # (A) 0.6 k/uL (0-1.0); Monocytes % (A) 6 %; Neutrophils # (A) 7.6 k/uL (1.3-7.7); Neutrophils % (A) 75 %; Platelet Count 142 k/uL (150-450); RBC 3.54 m/uL (3.80-5.40); RDW 13.5 % (11.5-15.5)
[2017-08-28 13:43] LABS: ALT 55 U/L (9-52); AST 114 U/L (14-36); Albumin 3.5 g/dL (3.5-5.0); Alcohol 42 mg/dL; Alkaline Phosphatase 126 U/L (38-126); Anion Gap 13 mmol/L; Blood Urea Nitrogen 26 mg/dL (7-17); Calcium 8.9 mg/dL (8.4-10.2); Carbon Dioxide 30 mmol/L (22-30); Chloride 98 mmol/L (98-107); Glucose 129 mg/dL (74-99); Lipase 108 U/L (23-300); Magnesium 1.6 mg/dL (1.6-2.3); Potassium 3.5 mmol/L (3.5-5.1); Sodium 141 mmol/L (137-145); Total Bilirubin 3.1 mg/dL (0.2-1.3); Total Protein 7.7 g/dL (6.3-8.2)
[2017-08-28 13:45] LABS: INR 2.1 (<1.2)
[2017-08-28 13:46] LABS: Partial Thromboplastin Time 30.6 sec (22.0-30.0); Prothrombin Time 19.1 sec (9.0-12.0)
--- NOTE | 2017-08-28 13:50 | XR ---
EXAMINATION TYPE: XR chest 2V DATE OF EXAM: 08/28/2017 HISTORY: pain. REFERENCE: The dated 10/28/2016. FINDINGS: The lungs are clear. Pleural space are clear. The heart is not enlarged. IMPRESSION: NORMAL CHEST.
--- NOTE | 2017-08-28 13:51 | XR ---
EXAMINATION TYPE: XR abdomen 1V , 2 VIEWS DATE OF EXAM ORDERED: 08/28/2017 HISTORY: Pain. COMPARISON: Previous study dated 10/21/2016. FINDINGS: The lung bases are clear. Within the abdomen, the abdominal gas pattern is within normal limits. There is no evidence of obstru ction or free air. No unusual calcifications are seen. IMPRESSION: NO ACUTE INTRA-ABDOMINAL ABNORMALITY.
[2017-08-28 14:00] LABS: Creatine Kinase 145 U/L (30-135)
[2017-08-28 14:12] LABS: Creatine Kinase MB 0.7 ng/mL (0.0-2.4); Troponin I <0.012 ng/mL (0.000-0.034)
[2017-08-28] MEDS ORDERED: ONDANSETRON 4 MG/2 ML VIAL IVP PRN (16:40)
[2017-08-28] MEDS ORDERED: NALOXONE 0.4 MG/ML 1 ML VIAL IV PRN (16:40)
[2017-08-28] MEDS ORDERED: SODIUM CHLORIDE 0.9% 1,000 ML with MVI, ADULT NO.4 WITH VIT K 10 ML, THIAMINE 100 MG, F... IV ONE ×4 (16:44)
[2017-08-28 16:58] LABS: HCT 32.1 % (34.0-46.0); HGB 10.9 gm/dL (11.4-16.0); MCH 35.1 pg (25.0-35.0); MCHC 33.8 g/dL (31.0-37.0); MCV 103.8 fL (80.0-100.0); Macrocytosis Slight; Mean Platelet Volume 7.2; Platelet Count 108 k/uL (150-450); RBC 3.09 m/uL (3.80-5.40); RDW 13.6 % (11.5-15.5); WBC 10.2 k/uL (3.8-10.6)
[2017-08-28 21:57] VITALS: RESP 16
[2017-08-28] MEDS: PANTOPRAZOLE 40 MG/10 ML VIAL IV SCH (21:57)
[2017-08-28 22:10] VITALS: BMI 20.7
[2017-08-29 07:22] VITALS: BP 118/70; PULSE 85; TEMP 98.4
[2017-08-29] MEDS: SODIUM CHLORIDE 0.9% 1,000 ML IV SCH ×2 (08:23→08:34)
[2017-08-29] MEDS: PANTOPRAZOLE 40 MG/10 ML VIAL IV SCH (08:24)
[2017-08-29] MEDS ORDERED: HYDROcodone/APAP 5-325MG 1 EACH TAB PO PRN (10:18)
[2017-08-29 11:23] LABS: ALT 41 U/L (9-52); AST 94 U/L (14-36); Albumin 2.8 g/dL (3.5-5.0); Alkaline Phosphatase 108 U/L (38-126); Blood Urea Nitrogen 18 mg/dL (7-17); Calcium 8.2 mg/dL (8.4-10.2); Carbon Dioxide 27 mmol/L (22-30); Chloride 104 mmol/L (98-107); Glucose 117 mg/dL (74-99); Potassium 3.4 mmol/L (3.5-5.1); Total Bilirubin 5.8 mg/dL (0.2-1.3); Total Protein 6.5 g/dL (6.3-8.2)
[2017-08-29 11:39] LABS: Anion Gap 8 mmol/L; Sodium 139 mmol/L (137-145)
[2017-08-29] MEDS ORDERED: FOLIC ACID 1 MG TAB PO SCH (12:00)
[2017-08-29] MEDS ORDERED: MULTIVITAMINS, THERA 1 EACH TAB PO SCH (12:00)
[2017-08-29] MEDS ORDERED: THIAMINE 100 MG TAB PO SCH (12:00)
[2017-08-29] MEDS ORDERED: IV FLUID CONTINUATION 200 ML IV ONE (12:01)
[2017-08-29] MEDS ORDERED: PROPOFOL 10 MG/ML 20 ML VIAL IV ONE (12:28)
--- NOTE | 2017-08-29 12:57 | P.PCN ---
Date of Procedure: 08/29/17 Procedure(s) Performed: BRIEF HISTORY: Patient is a 46-year-old, pleasant, white female, admitted to the hospital with an episode of coffee-ground emesis yesterday afternoon. She has history of alcoholic cirrhosis of the liver that was diagnosed about a year ago. She is scheduled for an upper endoscopy to evaluate further. PROCEDURE PERFORMED: Esophagogastroduodenoscopy. PREOPERATIVE DIAGNOSIS: Coffee-ground emesis. IV sedation per anesthesia. PROCEDURE: After informed consent was obtained, the patient was brought into the endoscopy unit. IV sedation was administered by Anesthesia under continuous monitoring. Initially the Olympus GIF-140 video endoscope was inserted into the mouth. Esophagus intubated without any difficulty. It was gradually advanced into the stomach and duodenum and carefully examined. The bulb and the second part of the duodenum appeared normal. The scope at this time was withdrawn to the stomach, adequately insufflated with air, and upon careful examination, mucosa of the antrum, body, cardia and the fundus showed changes with moderate to severe portal hypertensive gastropathy with no active bleeding. The scope was then withdrawn into the esophagus. The GE junction was located at 39 cm from the incisors. There was an early distal esophageal stricture identified with mild esophagitis. There were large distal esophageal varices seen with no stigmata of active bleed. The esophagus appeared normal. There were no erosions or ulcerations seen and the patient tolerated the procedure well. IMPRESSION: 1. Large distal esophageal varices with no active bleeding. 2. Moderate to severe portal hypertensive gastropathy. 3. Early esophageal stricture with esophagitis. RECOMMENDATIONS: The findings of this examination were discussed with the patient as well as a family. She will be started on clear liquid diet. Repeat CBC in the morning. She will also be started on nonselective beta blockers prior to discharge from the hospital to prevent esophageal variceal bleeding in the future in the meantime continue with Protonix 40 mg daily.
--- NOTE | 2017-08-29 16:36 | HP ---
HISTORY AND PHYSICAL DATE OF SERVICE: 08/28/2017. CHIEF COMPLAINT: Hematemesis, alcohol. HISTORY OF PRESENT ILLNESS: This 46-year-old woman with a past medical history of multiple medical problems including chronic liver disease, history of alcoholic cirrhosis, history of section, depression, being followed by a family member, was apparently at least a big bottle of wine a day. The patient has been drinking since 12/2015. The patient had multiple episodes of hematemesis and coffee ground emesis. The patient became lightheaded and dizzy. The patient came to [facility] and was admitted for further evaluation and treatment. After admission the hemoglobin was found to be 12.2, and INR 2.1. Bilirubin 3.1, AST is 114, ALT is 155. The patient admitted for further evaluation. There is no history of fevers, rigors. No headache, loss of consciousness, seizures. PAST MEDICAL HISTORY: Liver disease, cirrhosis of the liver, ETOH, section, paracentesis. MEDICATIONS PRIOR TO ADMISSION: 1. Vitamin B complex 1 p.o. daily. 2. Vitamin D 3000 daily. 3. Vitamin B1, 100 mg daily. 4. Medrol 10 mg. 5. Vitamin K 5 mg daily. 6. Protonix 40 mg. 7. Multivitamins 1 p.o. 8. Folic acid 1 p.o. daily. ALLERGIES: None. FAMILY HISTORY: History of congestive heart failure, mitral valve prolapse in the family. SOCIAL HISTORY: No history of smoking, no history of alcohol intake. REVIEW OF SYSTEMS: ENT: No diminished vision. CARDIOVASCULAR: No angina. LUNGS: Clear. No cough. GI: No nausea. : No dysuria. NERVOUS SYSTEMS: No numbness or weakness. ALLERGY/IMMUNOLOGY: None. MUSCULOSKELETAL: As mentioned. HEMATOLOGY: No history of anemia. ENDOCRINE: No history of diabetes. CONSTITUTIONAL: None. DERMATOLOGIC: None. PSYCHIATRIC: None. PHYSICAL EXAMINATION: Alert, oriented x3. Pulse is 90, blood pressure 105/56, respirations 16, temperature 99.4, pulse ox 97% on room air. HEENT: Oral mucosa moist. NECK: No jugular venous distention. No lymph node enlargement. CARDIOVASCULAR: S1 and S2. LUNGS: Breath sounds diminished in the bases. Few scattered rhonchi. No crackles. ABDOMEN: Soft, nontender. LEGS: No edema, no swelling. NERVOUS SYSTEM: Higher functions as mentioned. Moves all 4 limbs. No focal motor or sensory deficits. LYMPHATICS: No ulcer, no skin rashes. LAB STUDIES: WBC 10, hemoglobin 12.2, INR 2, albumin 3.1, AST is 114, ALT is 54. ASSESSMENT: 1. Acute upper gastrointestinal bleeding from possibly esophageal varices or gastritis. 2. History of ETOH. 3. Alcohol intoxication. 4. Coagulopathy secondary to cirrhosis of liver. 5. Increased bilirubin. 6. Increased AST, ALT, alcoholic hepatitis. RECOMMENDATIONS: In this 46-year-old woman who presented with multiple complex medical problems, we will monitor the patient closely, continue the current management and symptomatic treatment. Also had melenic stools which might indicate upper gastrointestinal bleeding. At this time continue to monitor. Otherwise, gastroenterology evaluation. [facility] protocol. Alcohol cessation. Supplement vitamins. Prognosis guarded. Further recommendations to follow. Also recommend close follow up with the primary physician. MMODL / IJN: [id number] /
--- NOTE | 2017-08-29 16:48 | CONS ---
CONSULTATION REQUESTING PHYSICIAN: REASON FOR CONSULTATION: Acute upper GI bleed. HISTORY OF PRESENT ILLNESS: The patient is a 46-year-old pleasant white female who was admitted to the hospital with 1 episode of emesis yesterday. The patient is known to have alcoholic cirrhosis of the liver with portal hypertension and she was in fact admitted to [facility] in June 2016 with severe acute alcoholic hepatitis. She has remained abstinent from alcohol for almost 10 months, but she has relapsed about 2 months ago. She was in fact seen in the office a week ago as a part of followup of chronic liver disease related to alcohol use and she was encouraged to quit drinking alcohol. However, the patient states that the day before she drank a bottle of wine she had some stomach upset, some epigastric discomfort followed by 1 episode of coffee-ground emesis. She subsequently had 2 episodes of black tarry stools. She came to the emergency room and was noted to have a hemoglobin of 10.9 g/dL. This morning she is feeling better. She denies any further episodes of bleeding. PAST MEDICAL HISTORY: Significant for alcoholic liver disease, anxiety, depression. PAST SURGICAL HISTORY: . SOCIAL HISTORY: Alcohol use as mentioned above. FAMILY HISTORY: Sister has congestive heart failure and mitral valve prolapse. Mother has glaucoma. MEDICATIONS: At home, vitamin C and vitamin B complex. ALLERGIES: No known drug allergies. REVIEW OF SYSTEMS: CARDIOPULMONARY: No chest pain, shortness of breath. GENITOURINARY: No dysuria or hematuria. MUSCULOSKELETAL: Unremarkable. SKIN: Unremarkable. ENDOCRINE: unremarkable. PSYCHIATRY: Unremarkable. NEUROLOGY: Unremarkable. ENT/VISION: Unremarkable. CONSTITUTIONAL: No recent weight loss. No fever, chills, night sweats. PHYSICAL EXAMINATION: She appears comfortable. No apparent distress. VITAL SIGNS: Stable. Blood pressure is 130/86, pulse rate 80 per minute and afebrile. HEENT: Examination unremarkable. Conjunctivae pink. Sclera slightly icteric. Oral cavity no lesions. NECK: No jugular venous distention or lymph node enlargement. CHEST: Clear to auscultation. HEART: Regular rate and rhythm. ABDOMEN: Soft. Bowel sounds are positive. Mild tenderness in the epigastric area. EXTREMITIES: No pedal edema. SKIN: No rashes. NEUROLOGIC: Alert and oriented x3. No focal deficits. LAB: WBC 10.2, hemoglobin 12.2, platelets 142, BUN 26, creatinine 0.9. PT and INR within normal limits. T bilirubin is 3.1, AST is 82. AST is 114, ALT 55, alkaline phosphatase 136. Serum alcohol level is 42. IMPRESSION: 1. This is a lady with history of alcoholic cirrhosis of the liver and component of acute alcoholic hepatitis admitted to hospital with an episode of coffee-ground emesis and two episodes of black tarry stools. Initial hemoglobin was 12.2 g/dL. Since being in the hospital, did not have any further episodes of bleeding. She had remained abstinent from alcohol for almost 10 months, but she relapsed about 2 weeks ago. 2. Mild coagulopathy related to alcoholic liver disease. 3. Mild elevation of serum transaminases secondary to acute alcoholic hepatitis. RECOMMENDATION: 1. Agree with IV proton pump inhibitors. 2. We will proceed with an upper endoscopy today. The patient was informed of benefits and complications of the procedure and further recommendations will follow based on the results. In the meantime, follow CBC closely. Thank you for this consultation. BRENNEN / DEEPALI: [id number] /
--- NOTE | 2017-08-29 16:57 | DS ---
DISCHARGE SUMMARY DATE OF SERVICE: 08/29/2017. FINAL DIAGNOSES: 1. Acute upper gastrointestinal bleeding secondary to esophageal varices status post EGD showing esophageal varices. No active episodes of bleeding. 2. History of ETOH. 3. Chronic liver disease and liver cirrhosis. 4. Acute alcoholic hepatitis. 5. Increased bilirubin. 6. History of nicotine dependence. 7. History of section. 8. History of depression. HISTORY: This 46-year-old woman with past history of multiple medical problems admitted with features of alcoholic hepatitis and as well as upper gastrointestinal bleeding. EGD showed esophageal varices and no acute bleeding. Symptomatic treatment was recommended and as well as beta-blockers. Dr. Jauregui saw the patient. On exam, vitals are stable. CARDIOVASCULAR: S1, S2. ABDOMEN: Soft. NERVOUS SYSTEM: No focal deficits. DISCHARGE ADVICE AND MEDICATIONS: 1. Diet is cardiac. 2. Activity limited until followup. 3. Follow up with primary physician in 2-3 days, Karolina. 4. Follow with Gastroenterology as advised. MEDICATIONS: Will be as follows: 1. Folic acid 1 mg daily. 2. Multivitamins 1 p.o. daily. 3. Protonix 40 mg p.o. daily. 4. Vitamin K 5 mg daily. 6. Thiamine 100 mg p.o. daily. 7. Vitamin E 1 p.o. daily. Once again, the patient is discharged in stable condition with guarded prognosis. MMODL / IJN: [id number] / MTDD
== END 2017-08-29 15:34 | disposition home or self-care (01) ==
LOC: EC 13:00 → 5MS5E 16:40
PROVIDERS: ADMIT Hospitalist; ATTEND Hospitalist
DX: K70.30 Alcoholic cirrhosis of liver without ascites (principal); I85.11 Secondary esophageal varices with bleeding; K70.10 Alcoholic hepatitis without ascites; D68.4 Acquired coagulation factor deficiency; K76.6 Portal hypertension; K22.2 Esophageal obstruction; K20.9 Esophagitis, unspecified; F32.9 Major depressive disorder, single episode, unspecified; Z82.49 Family history of ischemic heart disease and other diseases of the circulatory system; Z83.511 Family history of glaucoma; F10.229 Alcohol dependence with intoxication, unspecified; Z87.891 Personal history of nicotine dependence
CPT/HCPCS: 99285 ×2; 96365 ×2; 96366 ×2; 96375 ×2; 96361 ×6; 96376 ×2; 36415; 86900; 86901; 80053 ×2; 82550; 82553; 83690; 83735; 84484; 85025; 85027; 85610; 85730; 86850; 86870; 86880; 82272; 80320; 87502; 71046; 74018; 43235; G0378 ×2; J3411; J2704; C9113 ×2

== ENCOUNTER 2018-10-09 08:13 | Day surgery (SDC) | payer OTHER ==
[2018-10-09 09:01] LABS: INR 1.5 (<1.2); Prothrombin Time 15.4 sec (9.0-12.0)
[2018-10-09 09:11] LABS: Mean Platelet Volume 7.8; Platelet Count 180 k/uL (150-450)
[2018-10-09 09:20] VITALS: RESP 20; TEMP 98.3
[2018-10-09 10:06] VITALS: BP 109/64; PULSE 63
--- NOTE | 2018-10-09 11:08 | US ---
Therapeutic paracentesis. DATE OF EXAM: 10/09/2018 CLINICAL HISTORY: Ascites The procedure was discussed with the patient. The risks, complications, benefits, and alternatives we re discussed and any questions were answered. Informed consent was obtained. The patient was placed s upine on the ultrasound table and prepped and draped in the usual sterile fashion. All elements of maximal barrier technique were utilized. Under ultrasound guidance, access into the right lower quadrant was obtained, via the paracentesis catheter system and direct ultrasound guidanc e. Approximately 1.2 liters of straw-colored fluid was removed. The patient was stable throughout the pr ocedure and remained stable upon discharge from Department of Radiology. IMPRESSION: Successful therapeutic paracentesis under ultrasound guidance.
== END 2018-10-09 10:22 | disposition home or self-care (01) ==
LOC: RADPROMAIN 08:13
PROVIDERS: ATTEND Internal Medicine Gastroenterology
DX: R18.8 Other ascites (principal)
CPT/HCPCS: 36415; 49083; 82565; 85049; 85610

== ENCOUNTER 2018-10-11 09:05 | Day surgery (SDC) | payer OTHER ==
[2018-10-06 08:52] VITALS: BMI 24.3
[~2018-10-11 09:05] MED LIST: LACTATED RINGERS 1,000 ML IV SCH; LIDOCAINE 1% 20 ML VIAL (10MG/ML) FOR IV START INTRADERMA PRN
[2018-10-11 10:29] VITALS: RESP 16; TEMP 98.1
[2018-10-11] MEDS ORDERED: PROPOFOL 10 MG/ML 20 ML VIAL IV ONE (11:00)
[2018-10-11] MEDS ORDERED: LIDOCAINE 1% INJ 10MG/ML (20 ML MDV) ONE (11:00)
--- NOTE | 2018-10-11 11:10 | P.PCN ---
Date of Procedure: 10/11/18 Procedure(s) Performed: BRIEF HISTORY: Patient is a 48-year-old, pleasant, white female, scheduled for an upper endoscopy as a part of evaluation of intermittent episodes of nausea vomiting and coffee-ground emesis. She has history of alcohol cirrhosis of the liver diagnosed 2 years ago.. PROCEDURE PERFORMED: Esophagogastroduodenoscopy with biopsy. PREOPERATIVE DIAGNOSIS: Nausea vomiting/coffee-ground emesis a month ago. IV sedation per anesthesia. PROCEDURE: After informed consent was obtained, the patient was brought into the endoscopy unit. IV sedation was administered by Anesthesia under continuous monitoring. Initially the Olympus GIF-140 video endoscope was inserted into the mouth. Esophagus intubated without any difficulty. It was gradually advanced into the stomach and duodenum and carefully examined. The bulb and the second part of the duodenum appeared normal. The scope at this time was withdrawn to the stomach, adequately insufflated with air, and upon careful examination, mucosa of the antrum, had mild gastritis and biopsies were done from this area. There was congested appearing mucosa involving the body of the stomach consistent with portal hypertensive gastropathy. The cardia and the fundus appeared normal. The scope was then withdrawn into the esophagus. The GE junction was located at 39 cm from the incisors. The esophagus appeared normal. There were no erosions or ulcerations seen. There were large esophageal varices noted and the patient tolerated the procedure well. IMPRESSION: 1. Large esophageal varices. 2. Portal hypertensive gastropathy and antral gastritis. RECOMMENDATIONS: The findings of this examination were discussed with the patient as well as a family. She will continue on Inderal 20 mg 3 times daily and increase her to remain abstinent from alcohol.
[2018-10-11 11:48] VITALS: BP 121/79; PULSE 72
== END 2018-10-11 12:00 | disposition home or self-care (01) ==
LOC: ORWHC2ENDO 09:05
PROVIDERS: ATTEND Internal Medicine Gastroenterology
DX: K29.50 Unspecified chronic gastritis without bleeding (principal); I85.00 Esophageal varices without bleeding; K70.30 Alcoholic cirrhosis of liver without ascites; I85.10 Secondary esophageal varices without bleeding; K76.6 Portal hypertension; K31.89 Other diseases of stomach and duodenum; F32.9 Major depressive disorder, single episode, unspecified; K92.1 Melena; Z79.899 Other long term (current) drug therapy
CPT/HCPCS: 43239; J2001; J2704; 88305

== ENCOUNTER 2019-01-02 01:06 | Observation (INO) | payer OTHER ==
[2019-01-02 02:23] LABS: ALT 46 U/L (9-52); AST 101 U/L (14-36); African American GFR (CKD) >90 (>60 ml/min/1.73 sqM); Albumin 3.3 g/dL (3.5-5.0); Alcohol <10 mg/dL; Alkaline Phosphatase 100 U/L (38-126); Anion Gap 8 mmol/L; Blood Urea Nitrogen 17 mg/dL (7-17); Calcium 8.5 mg/dL (8.4-10.2); Carbon Dioxide 28 mmol/L (22-30); Chloride 103 mmol/L (98-107); Glucose 108 mg/dL (74-99); Potassium 3.3 mmol/L (3.5-5.1); Sodium 139 mmol/L (137-145); Total Bilirubin 4.1 mg/dL (0.2-1.3); Total Protein 7.1 g/dL (6.3-8.2)
[2019-01-02 02:24] LABS: Basophils % (A) 1 %; Eosinophils # (A) 0.1 k/uL (0-0.7); Eosinophils % (A) 1 %; HCT 36.3 % (34.0-46.0); HGB 11.8 gm/dL (11.4-16.0); Lymphocytes # (A) 1.2 k/uL (1.0-4.8); Lymphocytes % (A) 20 %; MCH 33.6 pg (25.0-35.0); MCHC 32.6 g/dL (31.0-37.0); MCV 103.1 fL (80.0-100.0); Macrocytosis Slight; Mean Platelet Volume 8.9; Monocytes # (A) 0.3 k/uL (0-1.0); Monocytes % (A) 5 %; Neutrophils # (A) 4.3 k/uL (1.3-7.7); Neutrophils % (A) 72 %; Platelet Count 101 k/uL (150-450); RBC 3.52 m/uL (3.80-5.40); RDW 13.7 % (11.5-15.5)
[2019-01-02 02:28] LABS: INR 1.8 (<1.2); Partial Thromboplastin Time 29.1 sec (22.0-30.0); Prothrombin Time 17.9 sec (9.0-12.0)
[2019-01-02] MEDS ORDERED: SODIUM CHLORIDE 0.9% 500 ML 500 ML IV STA (02:51)
[2019-01-02] MEDS ORDERED: SODIUM CHLORIDE 0.9% 1,000 ML IV STA (02:51)
--- NOTE | 2019-01-02 03:04 | ED ---
GI Bleed HPI - General Chief complaint: GI Bleed Stated complaint: GI Bleed Time Seen by Provider: 01/02/19 01:30 Source: EMS Mode of arrival: EMS Limitations: no limitations - History of Present Illness Initial comments: This patient is a 48-year-old woman with history of alcoholic liver disease and history of known esophageal varices, who is transferred here from [facility]. The patient had gone there this evening after she developed vomiting with which she is describing as red wine appearing emesis. She states that she had a total of 4 episodes starting in the evening. The last one was just prior to arrival at the hospital at about 9 PM. MD complaint: gross hematemesis Onset/Timin -: hour(s) Quality: cramping Consistency: colicky Improves with: vomiting Worsens with: none Context: history of GI bleed, liver disease, known esophageal varices Associated Symptoms: vomiting - Related Data Home Medications Medication Instructions Recorded Confirmed Ferrous Sulfate [Feosol] 325 mg PO DAILY 10/06/18 01/02/19 Furosemide [Lasix] 40 mg PO DAILY 10/06/18 01/02/19 Potassium Chloride [Klor-Con 20] 20 meq PO DAILY 10/06/18 01/02/19 Propranolol [Inderal] 10 mg PO DAILY 10/06/18 01/02/19 Spironolactone [Aldactone] 50 mg PO DAILY 10/06/18 01/02/19 Previous Rx's Medication Instructions Recorded Pantoprazole [Protonix] 40 mg PO BID #60 tablet. 01/03/19 Allergies Allergy/AdvReac Type Severity Reaction Status Date / Time No Known Allergies Allergy Verified 01/02/19 07:37 Review of Systems ROS Statement: Those systems with pertinent positive or pertinent negative responses have been documented in the HPI. ROS Other: All systems not noted in ROS Statement are negative. Constitutional: Denies: fever, chills, weakness Respiratory: Denies: cough, dyspnea Cardiovascular: Denies: chest pain, palpitations, edema Gastrointestinal: Reports: nausea, vomiting, hematemesis. Denies: abdominal pain, melena, hematochezia Genitourinary: Denies: dysuria, hematuria Musculoskeletal: Denies: back pain Skin: Denies: rash Neurological: Denies: headache, weakness, numbness Past Medical History Past Medical History: Liver Disease Additional Past Medical History / Comment(s): enlarged liver, alcoholic cirrhosis, ascites, episodes of vomiting blood couple weekends ago History of Any Multi-Drug Resistant Organisms: None Reported Past Surgical History: Section Additional Past Surgical History / Comment(s): EGD Past Anesthesia/Blood Transfusion Reactions: No Reported Reaction Additional Past Anesthesia/Blood Transfusion Reaction / Comment(s): Pt has never had general anesthesia. Past Psychological History: No Psychological Hx Reported Smoking Status: Never smoker Past Alcohol Use History: Abuse, Daily Past Drug Use History: None Reported - Past Family History Sister(s) Family Medical History: Congestive Heart Failure (CHF) Additional Family Medical History / Comment(s): mitral valve prolapse Mother Family Medical History: Eye Disorder Additional Family Medical History / Comment(s): Glaucoma, aneurysm-pt does not know location. Father Family Medical History: No Reported History Additional Family Medical History / Comment(s): Father is healthy General Exam Limitations: no limitations General appearance: alert, in no apparent distress Head exam: Present: atraumatic, normocephalic Eye exam: Present: scleral icterus. Absent: normal appearance, conjunctival injection ENT exam: Present: mucous membranes dry Neck exam: Present: normal inspection Respiratory exam: Present: normal lung sounds bilaterally. Absent: respiratory distress, wheezes, rales, rhonchi, stridor Cardiovascular Exam: Present: regular rate, normal rhythm, normal heart sounds. Absent: systolic murmur, diastolic murmur, rubs, gallop GI/Abdominal exam: Present: soft. Absent: distended, tenderness, guarding, deion ound, rigid, mass Extremities exam: Present: normal inspection, normal capillary refill. Absent: pedal edema, calf tenderness Back exam: Present: normal inspection. Absent: CVA tenderness (R), CVA tenderness (L) Neurological exam: Present: alert Skin exam: Present: warm, dry, intact, other (Telangiectasias) Course Vital Signs 01/02/19 01/02/19 01/02/19 01:10 02:30 04:50 Temperature 98.2 F Pulse Rate 69 65 72 Pulse Rate [ Pulse Oximetery ] Respiratory 16 16 18 Rate Blood Pressure 100/89 100/63 100/68 Blood Pressure [Right Arm] O2 Sat by Pulse 96 98 96 Oximetry 01/02/19 08:00 Temperature Pulse Rate Pulse Rate [ 73 Pulse Oximetery ] Respiratory 16 Rate Blood Pressure Blood Pressure 103/70 [Right Arm] O2 Sat by Pulse 95 Oximetry Medical Decision Making - Medical Decision Making Patient is a 48-year-old woman with known history of alcoholic cirrhosis and previous variceal bleeding who presents with history strongly suggestive of episodes variceal bleeding. The patient is not currently having bleeding and she has received PPI at the transferring facility. admitted for serial hemoglobins as well as further GI evaluation. 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 - Lab Data Result diagrams: 01/03/19 06:30 01/03/19 06:30 Lab Results 01/02/19 01/02/19 01/02/19 Range/Units 01:14 01:14 01:14 WBC 6.0 (3.8-10.6) k/uL RBC 3.52 L (3.80-5.40) m/uL Hgb 11.8 (11.4-16.0) gm/dL Hct 36.3 (34.0-46.0) % MCV 103.1 H (80.0-100.0) fL MCH 33.6 (25.0-35.0) pg MCHC 32.6 (31.0-37.0) g/dL RDW 13.7 (11.5-15.5) % Plt Count 101 L (150-450) k/uL Neutrophils % 72 % Lymphocytes % 20 % Monocytes % 5 % Eosinophils % 1 % Basophils % 1 % Neutrophils # 4.3 (1.3-7.7) k/uL Lymphocytes # 1.2 (1.0-4.8) k/uL Monocytes # 0.3 (0-1.0) k/uL Eosinophils # 0.1 (0-0.7) k/uL Basophils # 0.0 (0-0.2) k/uL Macrocytosis Slight PT 17.9 H (9.0-12.0) sec INR 1.8 H (<1.2) APTT 29.1 (22.0-30.0) sec Sodium 139 (137-145) mmol/L Potassium 3.3 L (3.5-5.1) mmol/L Chloride 103 (98-107) mmol/L Carbon Dioxide 28 (22-30) mmol/L Anion Gap 8 mmol/L BUN 17 (7-17) mg/dL Creatinine 0.47 L (0.52-1.04) mg/dL Est GFR (CKD-EPI)AfAm >90 (>60 ml/min/1.73 sqM) Est GFR (CKD-EPI)NonAf >90 (>60 ml/min/1.73 sqM) Glucose 108 H (74-99) mg/dL Plasma Lactic Acid Odell (0.7-2.0) mmol/L Calcium 8.5 (8.4-10.2) mg/dL Total Bilirubin 4.1 H (0.2-1.3) mg/dL AST 101 H (14-36) U/L ALT 46 (9-52) U/L Alkaline Phosphatase 100 (38-126) U/L Troponin I (0.000-0.034) ng/mL Total Protein 7.1 (6.3-8.2) g/dL Albumin 3.3 L (3.5-5.0) g/dL Serum Alcohol <10 mg/dL Blood Type Blood Type Recheck Antibody Screen Spec Expiration Date 01/02/19 01/02/19 01/02/19 Range/Units 01:14 01:14 02:12 WBC (3.8-10.6) k/uL RBC (3.80-5.40) m/uL Hgb (11.4-16.0) gm/dL Hct (34.0-46.0) % MCV (80.0-100.0) fL MCH (25.0-35.0) pg MCHC (31.0-37.0) g/dL RDW (11.5-15.5) % Plt Count (150-450) k/uL Neutrophils % % Lymphocytes % % Monocytes % % Eosinophils % % Basophils % % Neutrophils # (1.3-7.7) k/uL Lymphocytes # (1.0-4.8) k/uL Monocytes # (0-1.0) k/uL Eosinophils # (0-0.7) k/uL Basophils # (0-0.2) k/uL Macrocytosis PT (9.0-12.0) sec INR (<1.2) APTT (22.0-30.0) sec Sodium (137-145) mmol/L Potassium (3.5-5.1) mmol/L Chloride (98-107) mmol/L Carbon Dioxide (22-30) mmol/L Anion Gap mmol/L BUN (7-17) mg/dL Creatinine (0.52-1.04) mg/dL Est GFR (CKD-EPI)AfAm (>60 ml/min/1.73 sqM) Est GFR (CKD-EPI)NonAf (>60 ml/min/1.73 sqM) Glucose (74-99) mg/dL Plasma Lactic Acid Odell 1.1 (0.7-2.0) mmol/L Calcium (8.4-10.2) mg/dL Total Bilirubin (0.2-1.3) mg/dL AST (14-36) U/L ALT (9-52) U/L Alkaline Phosphatase (38-126) U/L Troponin I <0.012 (0.000-0.034) ng/mL Total Protein (6.3-8.2) g/dL Albumin (3.5-5.0) g/dL Serum Alcohol mg/dL Blood Type O Negative Blood Type Recheck No Antibody Screen NEGATIVE Spec Expiration Date 01/05/2019 - 2312 Disposition Clinical Impression: GI bleeding, ETOH abuse Disposition: ADMITTED IP TO THIS HOSP Condition: Fair
[2019-01-02] MEDS ORDERED: NALOXONE 0.4 MG/ML 1 ML VIAL IV PRN (03:22)
[2019-01-02] MEDS ORDERED: ONDANSETRON 4 MG/2 ML VIAL IVP PRN (03:22)
[2019-01-02] MEDS: FERROUS SULFATE 325 MG TAB PO SCH ×2 (08:06→09:37)
[2019-01-02] MEDS: SPIRONOLACTONE 25 MG TAB PO SCH ×2 (08:06→09:37)
--- NOTE | 2019-01-02 08:13 | P.HPIM ---
History of Present Illness H&P Date: 01/02/19 The patient is a 48 yo F with a PMH of alcoholic liver cirrhosis and known esophageal varices (follows w/ Dr Jauregui in outpatient setting), initially presented to [facility] yesterday evening for multiple episodes of wine colored vomitus. The patient reports having a total of 4 episodes of vomiting along with nausea yesterday evening with the last episode occurring at 8 PM on 01/01/2019. She otherwise denied any active complaints including fever, chills, abdominal pain, or diarrhea. She further denied chest pain, shortness of breath, palpitations, dizziness, or headaches. She underwent an extensive evaluation in the ED with WBC 6.0, Hgb 11.8, platelets 101, INR 1.9, K 3.3, Cr 0.47, Troponin < 0.012, and albumin 3.3. She is being admitted to the medicine service for further management. Review of Systems Pertinent positives and negatives as discussed in HPI, a complete review of systems was performed and all other systems are negative. Past Medical History Past Medical History: Liver Disease Additional Past Medical History / Comment(s): enlarged liver, alcoholic cirrhosis, ascites, episodes of vomiting blood couple weekends ago History of Any Multi-Drug Resistant Organisms: None Reported Past Surgical History: Section Additional Past Surgical History / Comment(s): EGD Past Anesthesia/Blood Transfusion Reactions: No Reported Reaction Additional Past Anesthesia/Blood Transfusion Reaction / Comment(s): Pt has never had general anesthesia. Past Psychological History: No Psychological Hx Reported Smoking Status: Never smoker Past Alcohol Use History: Abuse, Daily Past Drug Use History: None Reported - Past Family History Sister(s) Family Medical History: Congestive Heart Failure (CHF) Additional Family Medical History / Comment(s): mitral valve prolapse Mother Family Medical History: Eye Disorder Additional Family Medical History / Comment(s): Glaucoma, aneurysm-pt does not know location. Father Family Medical History: No Reported History Additional Family Medical History / Comment(s): Father is healthy Medications and Allergies Home Medications Medication Instructions Recorded Confirmed Type Famotidine [Pepcid] 20 mg PO DAILY 10/06/18 01/02/19 History Ferrous Sulfate [Feosol] 325 mg PO DAILY 10/06/18 01/02/19 History Furosemide [Lasix] 40 mg PO DAILY 10/06/18 01/02/19 History Potassium Chloride [Klor-Con 20] 20 meq PO DAILY 10/06/18 01/02/19 History Propranolol [Inderal] 10 mg PO DAILY 10/06/18 01/02/19 History Spironolactone [Aldactone] 50 mg PO DAILY 10/06/18 01/02/19 History Allergies Allergy/AdvReac Type Severity Reaction Status Date / Time No Known Allergies Allergy Verified 01/02/19 07:37 Physical Exam Vitals: Vital Signs Temp Pulse Resp BP Pulse Ox 01/02/19 04:50 72 18 100/68 96 01/02/19 02:30 65 16 100/63 98 01/02/19 01:10 98.2 F 69 16 100/89 96 Intake and Output 01/01/19 01/02/19 01/02/19 22:59 06:59 14:59 Other: Weight 63.503 kg General: non toxic, no distress, appears at stated age, normal weight Derm: no unusual rashes/lesions no unusual ecchymoses, warm, dry Head: atraumatic, normocephalic, symmetric Eyes: EOMI, no lid lag, anicteric sclera, pupils equal round reactive to light ENT: Nose and ears atraumatic, no thrush, no pharyngeal erythema Neck: No thyromegaly, no cervical lymphadenopathy, trachea midline, supple Mouth: no lip lesion, mucus membranes moist Cardiovascular: S1S2 reg, no murmur, positive posterior tibial pulse bilateral, no edema, capillary refill less than 2 seconds Lungs: CTA bilateral, no rhonchi, no rales , no accessory muscle use Abdominal: soft, nontender to palpation, no guarding, no appreciable organomegaly, normal bowel sounds Ext: no gross muscle atrophy, muscle strength 5 out of 5 in all 4 extremities grossly, no contractures, Neuro: CN II-XI grossly intact, light touch intact all 4 extremities, finger to nose within normal limits, Psych: Alert, oriented, appropriate affect Results CBC & Chem 7: 01/02/19 01:14 01/02/19 01:14 Labs: Abnormal Lab Results - Last 24 Hours (Table) 01/02/19 01/02/19 01/02/19 Range/Units 01:14 01:14 01:14 RBC 3.52 L (3.80-5.40) m/uL MCV 103.1 H (80.0-100.0) fL Plt Count 101 L (150-450) k/uL PT 17.9 H (9.0-12.0) sec INR 1.8 H (<1.2) Potassium 3.3 L (3.5-5.1) mmol/L Creatinine 0.47 L (0.52-1.04) mg/dL Glucose 108 H (74-99) mg/dL Total Bilirubin 4.1 H (0.2-1.3) mg/dL AST 101 H (14-36) U/L Albumin 3.3 L (3.5-5.0) g/dL Assessment and Plan Plan: Hematemesis in setting of cirrhosis and known varices -NPO for now -GI consult -Monitor CBC -Protonix, Propranolol, Lasix, Aldactone Hypokalemia -Replace and monitor Hypoalbuminemia and elevated INR -Secondary to cirrhosis DVT prophylaxis -IPCD The patient is admitted with an anticipated greater than 2 midnight stay for evaluation of GIB. CODE STATUS:Full Code Discussed with: Patient Anticipated discharge date: 01/04/[address]: Home A total of 40 minutes was spent on the care of this complex patient more than 50% of the time was spent in counseling and care coordination
[2019-01-02] MEDS ORDERED: PROPRANOLOL 10 MG TAB PO SCH (09:00)
[2019-01-02] MEDS ORDERED: PANTOPRAZOLE 40 MG/10 ML VIAL IV SCH (09:00)
[2019-01-02] MEDS: POTASSIUM CHLORIDE ER 20 MEQ TAB.ER PO SCH (09:36)
[2019-01-02] MEDS: FUROSEMIDE 40 MG TAB PO SCH (09:37)
[2019-01-02 11:17] VITALS: RESP 16
--- NOTE | 2019-01-02 11:32 | P.CONS ---
History of Present Illness - Reason for Consult Consult date: 01/02/19 Hematemesis Requesting physician: Yefri Guo - Chief Complaint Hematemesis - History of Present Illness 48-year-old female with a history of alcohol cirrhosis presents with acute hematemesis 4 Tuesday with black colored bowel movement 1 on Tuesday. Patient drank wine on Tuesday. EGD 10/11/2018 reported large esophageal varices with portal hypertensive gastropathy antral gastritis, variceal ligation not performed. Maintained on Inderal and PPI. Admission hemoglobin 11.8. White count 6. Platelet 101. INR 1.8. Total bilirubin 4.1. AST 101. ALT 46. AP 100. Serum alcohol less than 10. Inderal 10 mg BID and no PPI prior to admission. No fever chills or NSAIDs. No aspirin products. Mild midepigastric discomfort. No further emesis or black colored bowel movement since Tuesday. Review of Systems Constitutional: Denies fever, chills, sweats, weight gain, or loss. HEENT: Negative for migraines, blurred vision or loss, earaches, drainage, tinnitus, oral mucosal lesions, dysphagia, or odynophagia. CARDIAC: Negative for chest pain, arrhythmias, or palpitation. RESPIRATORY: Negative for shortness of breath, hemoptysis, cough, or sputum production. GI: See HPI for pertinent findings. : Negative for hematuria, urgency, frequency, polyuria, or dysuria. GYNc: Denies possibility of . Negative vaginal discharge. MUSCULOSKELETAL: Negative for muscle aches, swelling, arthritis, and arthralgias. NEUROLOGIC: Negative for stroke or TIA. ENDOCRINE: Negative for thyroid problems. SKIN: Negative for rash or itching. PSYCHIATRIC: Negative history for depression and anxiety Past Medical History Past Medical History: GERD/Reflux, GI Bleed, Liver Disease Additional Past Medical History / Comment(s): Alcoholic cirrhosis, enlarged liver, esophageal varicies, upper GI bleeds, gastritis, ascities, pt states her heart has "missed beats". History of Any Multi-Drug Resistant Organisms: None Reported Past Surgical History: Section Additional Past Surgical History / Comment(s): EGDs with last one done 10/11/18, paracentesis x 3, x 1 Past Anesthesia/Blood Transfusion Reactions: No Reported Reaction Additional Past Anesthesia/Blood Transfusion Reaction / Comm: Pt has received blood in past without reaction. Smoking Status: Never smoker - Past Family History Sister(s) Family Medical History: Congestive Heart Failure (CHF) Additional Family Medical History / Comment(s): mitral valve prolapse Mother Family Medical History: Eye Disorder Additional Family Medical History / Comment(s): Glaucoma, aneurysm-pt does not know location. Father Family Medical History: No Reported History Additional Family Medical History / Comment(s): Father is healthy Medications and Allergies Home Medications Medication Instructions Recorded Confirmed Type Famotidine [Pepcid] 20 mg PO DAILY 10/06/18 01/02/19 History Ferrous Sulfate [Feosol] 325 mg PO DAILY 10/06/18 01/02/19 History Furosemide [Lasix] 40 mg PO DAILY 10/06/18 01/02/19 History Potassium Chloride [Klor-Con 20] 20 meq PO DAILY 10/06/18 01/02/19 History Propranolol [Inderal] 10 mg PO DAILY 10/06/18 01/02/19 History Spironolactone [Aldactone] 50 mg PO DAILY 10/06/18 01/02/19 History Allergies Allergy/AdvReac Type Severity Reaction Status Date / Time No Known Allergies Allergy Verified 01/02/19 07:37 Physical Exam Vitals: Vital Signs Temp Pulse Pulse Resp BP BP Pulse Ox 01/02/19 08:00 73 16 103/70 95 01/02/19 04:50 72 18 100/68 96 01/02/19 02:30 65 16 100/63 98 01/02/19 01:10 98.2 F 69 16 100/89 96 Intake and Output 01/01/19 01/02/19 01/02/19 22:59 06:59 14:59 Other: Weight 63.503 kg General appearance: The patient is alert, oriented, in no acute distress. HET: Head is normocephalic and atraumatic. Pupils are equal and reactive. Oropharynx is clear without lesions. Neck: Supple without lymphadenopathy. Trachea midline. Heart: S1 S2. Regular rate and rhythm. Lungs: No crackles or wheezes are heard. Abdomen: Soft, nontender, nondistended with bowel sounds. No peritoneal signs. No palpable organomegaly or masses. Extremities: Normal skin color and turgor. No cyanosis, rash, ulceration, clubbing, or edema. Radial and pedal pulses are 2/4 bilaterally. Neurological: No focal deficits. Strength and sensation are grossly intact. Results CBC & Chem 7: 01/03/19 06:30 01/03/19 06:30 Labs: Abnormal Lab Results - Last 24 Hours (Table) 01/02/19 01/02/19 01/02/19 Range/Units 01:14 01:14 01:14 RBC 3.52 L (3.80-5.40) m/uL MCV 103.1 H (80.0-100.0) fL Plt Count 101 L (150-450) k/uL PT 17.9 H (9.0-12.0) sec INR 1.8 H (<1.2) Potassium 3.3 L (3.5-5.1) mmol/L Creatinine 0.47 L (0.52-1.04) mg/dL Glucose 108 H (74-99) mg/dL Total Bilirubin 4.1 H (0.2-1.3) mg/dL AST 101 H (14-36) U/L Albumin 3.3 L (3.5-5.0) g/dL Assessment and Plan (1) GI bleed Narrative/Plan: Acute upper GI bleed hematemesis melena in a patient who drank wine on Tuesday with underlying alcohol cirrhosis portal hypertension and esophageal varices. EGD 10/12/2018 reported grade 2 esophageal varices portal hypertensive gastropathy. Suspect exacerbation of portal hypertensive gastropathy alcohol gastritis secondary to underlying coagulopathy and alcohol consumption. Current Visit: Yes Status: Acute Code(s): K92.2 - GASTROINTESTINAL HEMORRHAGE, UNSPECIFIED SNOMED Code(s): 65538043 (2) Esophageal varices Current Visit: Yes Status: Acute Code(s): I85.00 - ESOPHAGEAL VARICES WITHOUT BLEEDING SNOMED Code(s): 87163986 (3) Portal hypertensive gastropathy Current Visit: Yes Status: Acute Code(s): K76.6 - PORTAL HYPERTENSION; K31. 89 - OTHER DISEASES OF STOMACH AND DUODENUM SNOMED Code(s): 764763908 (4) Alcoholic cirrhosis Current Visit: No Status: Acute Code(s): K70.30 - ALCOHOLIC CIRRHOSIS OF LIVER WITHOUT ASCITES SNOMED Code(s): 691913327 (5) Coagulopathy Current Visit: No Status: Acute Code(s): D68.9 - COAGULATION DEFECT, UNSPECIFIED SNOMED Code(s): 38517218 (6) Hematemesis Current Visit: Yes Status: Acute Code(s): K92.0 - HEMATEMESIS SNOMED Code(s): 1169300 (7) Thrombocytopenia Current Visit: Yes Status: Acute Code(s): D69.6 - THROMBOCYTOPENIA, UNSPECIFIED SNOMED Code(s): 506691272 Plan: 1. Dr. Jacobson recommends Protonix 40 mg twice daily. Rocephin 1 g every 24 SBP prophylaxis. CBC now and daily. Inpatient EGD not planned at this time but contingent on clinical course. Continue with Inderal 10 mg 3 times a day. Alcohol abstinence reinforced. Will follow with you. Clear liquid diet. Thank you for this kind referral and the opportunity to participate in the care of your patient. This consultation was discussed with Dr. Jacobson. The impression and plan of care have been directed as dictated.
[2019-01-02 12:12] LABS: Basophils % (A) 1 %; Eosinophils # (A) 0.1 k/uL (0-0.7); Eosinophils % (A) 2 %; HGB 11.4 gm/dL (11.4-16.0); Lymphocytes # (A) 1.3 k/uL (1.0-4.8); Lymphocytes % (A) 22 %; MCH 33.7 pg (25.0-35.0); MCHC 32.5 g/dL (31.0-37.0); MCV 103.7 fL (80.0-100.0); Macrocytosis Slight; Mean Platelet Volume 9.1; Monocytes # (A) 0.3 k/uL (0-1.0); Monocytes % (A) 5 %; Neutrophils # (A) 4.2 k/uL (1.3-7.7); Neutrophils % (A) 68 %; Platelet Count 100 k/uL (150-450); RBC 3.38 m/uL (3.80-5.40); RDW 14.6 % (11.5-15.5); WBC 6.2 k/uL (3.8-10.6)
--- NOTE | 2019-01-02 14:13 | P.CNPUL ---
History of Present Illness Consult date: 01/02/19 Requesting physician: Yefri Guo Reason for consult: other (Hematemesis) Chief complaint: Hematemesis History of present illness: This is a very pleasant 48-year-old female patient with a known history of alcoholic cirrhosis, esophageal varices, gastritis, ascites with previous paracentesis, gastroesophageal reflux disease. She presented to [facility] yesterday after having 4 episodes of hematemesis and dark black tarry stools. Her last EGD on 10/12/2018 reported grade 2 esophageal varices, portal hypertension, gastropathy. She does admit to having drank wine on the day of this occurrence which was 2 days ago now. She is seen today in consultation on the selective care unit. She is awake and alert in no acute distress. Current hemoglobin 11.4. INR 1.8. AST 101, ALT 46, serum alcohol less than 10. She's been seen and evaluated by GI services. Currently on Protonix 40 mg twice a day, Rocephin, Inderal. Review of Systems REVIEW OF SYSTEMS: CONSTITUTIONAL: Denies any recent significant weight loss or weight gain. EYES: Denies change in vision. EARS, NOSE, MOUTH, THROAT: Denies headaches, denies sore throat. CARDIOVASCULAR: Denies chest pain, palpitations or syncopal episodes. RESPIRATORY: Denies shortness of breath, cough, congestion or hemoptysis. GASTROINTESTINAL: Positive for abdominal discomfort dark tarry stools and hematemesis GENITOURINARY: Denies hematuria, denies infections. MUSKULOSKELETAL: Denies pain, denies swelling. INTEGUMENTARY: Denies rash, denies eczema. NEUROLOGICAL: Denies recent memory loss, no recent seizure activity. PSYCHIATRIC: Denies anxiety, denies depression. HEMATOLOGIC/LYMPHATIC: Denies anemia, denies enlarged lymph nodes. Past Medical History Past Medical History: GERD/Reflux, GI Bleed, Liver Disease Additional Past Medical History / Comment(s): Alcoholic cirrhosis, enlarged liver, esophageal varicies, upper GI bleeds, gastritis, ascities, pt states her heart has "missed beats". History of Any Multi-Drug Resistant Organisms: None Reported Past Surgical History: Section Additional Past Surgical History / Comment(s): EGDs with last one done 10/11/18, paracentesis x 3, x 1 Past Anesthesia/Blood Transfusion Reactions: No Reported Reaction Additional Past Anesthesia/Blood Transfusion Reaction / Comment(s): Pt has received blood in past without reaction. Smoking Status: Never smoker - Past Family History Sister(s) Family Medical History: Congestive Heart Failure (CHF) Additional Family Medical History / Comment(s): mitral valve prolapse Mother Family Medical History: Eye Disorder Additional Family Medical History / Comment(s): Glaucoma, aneurysm-pt does not know location. Father Family Medical History: No Reported History Additional Family Medical History / Comment(s): Father is healthy Medications and Allergies Home Medications Medication Instructions Recorded Confirmed Type Famotidine [Pepcid] 20 mg PO DAILY 10/06/18 01/02/19 History Ferrous Sulfate [Feosol] 325 mg PO DAILY 10/06/18 01/02/19 History Furosemide [Lasix] 40 mg PO DAILY 10/06/18 01/02/19 History Potassium Chloride [Klor-Con 20] 20 meq PO DAILY 10/06/18 01/02/19 History Propranolol [Inderal] 10 mg PO DAILY 10/06/18 01/02/19 History Spironolactone [Aldactone] 50 mg PO DAILY 10/06/18 01/02/19 History Allergies Allergy/AdvReac Type Severity Reaction Status Date / Time No Known Allergies Allergy Verified 01/02/19 07:37 Physical Exam Vitals: Vital Signs Temp Pulse Pulse Resp BP BP Pulse Ox 01/02/19 12:00 66 16 100/62 94 L 01/02/19 08:00 73 16 103/70 95 01/02/19 04:50 72 18 100/68 96 01/02/19 02:30 65 16 100/63 98 01/02/19 01:10 98.2 F 69 16 100/89 96 Intake and Output 01/01/19 01/02/19 01/02/19 22:59 06:59 14:59 Other: Weight 63.503 kg GENERAL EXAM: Alert, active, comfortable in no apparent distress. On room air. HEAD: Normocephalic. EYES: Normal reaction of pupils, equal size. NOSE: Clear with pink turbinates. THROAT: No erythema or exudates. NECK: No masses, no JVD. CHEST: No chest wall deformity. LUNGS: Equal air entry with no crackles, wheeze, rhonchi or dullness. CVS: S1 and S2 normal with no audible murmur, regular rhythm. ABDOMEN: No hepatosplenomegaly, normal bowel sounds, no guarding or rigidity. SPINE: No scoliosis or deformity SKIN: No rashes CENTRAL NERVOUS SYSTEM: No focal deficits, tone is normal in all 4 extremities. EXTREMITIES: There is no peripheral edema. No clubbing, no cyanosis. Peripheral pulses are intact. Results - Laboratory Findings CBC and BMP: 01/02/19 11:49 01/02/19 01:14 PT/INR, D-dimer PT 17.9 sec (9.0-12.0) H 01/02/19 01:14 INR 1.8 (<1.2) H 01/02/19 01:14 Abnormal lab findings: Abnormal Labs 01/02/19 01/02/19 01/02/19 01:14 01:14 01:14 RBC 3.52 L MCV 103.1 H Plt Count 101 L PT 17.9 H INR 1.8 H Potassium 3.3 L Creatinine 0.47 L Glucose 108 H Total Bilirubin 4.1 H AST 101 H Albumin 3.3 L 01/02/19 11:49 RBC 3.38 L MCV 103.7 H Plt Count 100 L PT INR Potassium Creatinine Glucose Total Bilirubin AST Albumin Assessment and Plan Assessment: Impression: #1 Hematemesis and melena in a patient with a known history of esophageal varices, alcoholic cirrhosis and portal hypertension. Most recent EGD revealed grade 2 esophageal varices, portal hypertension and gastropathy. #2 Esophageal varices. #3 Alcoholic cirrhosis with previous paracentesis. #4 Chronic and ongoing alcohol use. Plan: The patient was seen and evaluated by Dr. Banegas. She is currently stable from the pulmonary standpoint. No plans for transfer to the ICU currently. GI services has been consulted and are recommending conservative medical treatment at this point. Currently on Inderal, Protonix, Rocephin. We will continue to follow make further recommendations based on her clinical status. I, the cosigning physician, performed a history & physical examination of the patient. Lungs sounds are clear. Maintaining good O2 saturations in the 90s on room air. I discussed the assessment and plan of care with my nurse practitioner, Unique Bryson. I attest to the above note as dictated by her. Time with Patient: Greater than 30
[2019-01-02] MEDS: PROPRANOLOL 20 MG TAB PO SCH ×2 (16:45→23:12)
[2019-01-02] MEDS: PANTOPRAZOLE 40 MG/10 ML VIAL IV SCH (23:07)
[2019-01-03 07:24] LABS: Basophils % (A) 0 %; Eosinophils # (A) 0.2 k/uL (0-0.7); Eosinophils % (A) 4 %; HCT 32.4 % (34.0-46.0); HGB 10.6 gm/dL (11.4-16.0); Lymphocytes # (A) 1.2 k/uL (1.0-4.8); Lymphocytes % (A) 30 %; MCH 34.7 pg (25.0-35.0); MCHC 32.6 g/dL (31.0-37.0); MCV 106.5 fL (80.0-100.0); Macrocytosis Moderate; Monocytes # (A) 0.2 k/uL (0-1.0); Monocytes % (A) 6 %; Neutrophils # (A) 2.2 k/uL (1.3-7.7); Neutrophils % (A) 57 %; RBC 3.04 m/uL (3.80-5.40); RDW 14.6 % (11.5-15.5); WBC 3.9 k/uL (3.8-10.6)
[2019-01-03 07:28] LABS: Platelet Count 88 k/uL (150-450)
[2019-01-03 08:12] LABS: ALT 38 U/L (9-52); AST 76 U/L (14-36); African American GFR (CKD) >90 (>60 ml/min/1.73 sqM); Albumin 2.7 g/dL (3.5-5.0); Alkaline Phosphatase 77 U/L (38-126); Anion Gap 5 mmol/L; Blood Urea Nitrogen 13 mg/dL (7-17); Calcium 7.9 mg/dL (8.4-10.2); Carbon Dioxide 27 mmol/L (22-30); Chloride 107 mmol/L (98-107); Glucose 91 mg/dL (74-99); Potassium 3.2 mmol/L (3.5-5.1); Sodium 139 mmol/L (137-145); Total Bilirubin 2.9 mg/dL (0.2-1.3); Total Protein 6.2 g/dL (6.3-8.2)
[2019-01-03] MEDS: SPIRONOLACTONE 25 MG TAB PO SCH (08:54)
[2019-01-03] MEDS: FUROSEMIDE 40 MG TAB PO SCH (08:54)
[2019-01-03] MEDS: FERROUS SULFATE 325 MG TAB PO SCH (08:54)
[2019-01-03] MEDS: PROPRANOLOL 20 MG TAB PO SCH ×2 (08:55→16:54)
[2019-01-03] MEDS: POTASSIUM CHLORIDE ER 20 MEQ TAB.ER PO SCH (08:55)
[2019-01-03] MEDS: PANTOPRAZOLE 40 MG/10 ML VIAL IV SCH ×2 (08:57→21:47)
--- NOTE | 2019-01-03 11:15 | P.PN ---
Subjective Progress Note Date: 01/03/19 Principal diagnosis: Hematemesis Hemoglobin 10.6. Platelet 88,000. LFTs improved total bilirubin 2.9. AST 76. ALT 38. AP 77. No GI bleeding. Mild epigastric discomfort. Objective - Vital Signs Vital signs: Vital Signs Temp 98.2 F 01/03/19 08:00 Pulse 69 01/03/19 08:00 Resp 16 01/03/19 08:00 BP 91/49 01/03/19 08:00 Pulse Ox 97 01/03/19 08:00 Intake & Output 01/02/19 01/03/19 01/03/19 18:59 06:59 18:59 Intake Total 1340 360 480 Balance 1340 360 480 Weight 65.5 kg Intake: Intake, IV Titration 900 Amount Sodium Chloride 0.9% 1, 800 000 ml @ 100 mls/hr IV . Q10H STA Rx#:[id number] cefTRIAXone 1 gm In 100 Sodium Chloride 0.9% 50 ml @ 100 mls/hr IVPB Q24HR YAN Rx#:[id number] Oral 440 360 480 Other: # Voids 1 - Exam General appearance: The patient is alert, oriented, in no acute distress. HET: Head is normocephalic and atraumatic. Pupils are equal and reactive. Oropharynx is clear without lesions. Neck: Supple without lymphadenopathy. Trachea midline. Heart: S1 S2. Regular rate and rhythm. Lungs: No crackles or wheezes are heard. Abdomen: Soft, nontender, nondistended with bowel sounds. No peritoneal signs. No palpable organomegaly or masses. Extremities: Normal skin color and turgor. No cyanosis, rash, ulceration, club olman, or edema. Radial and pedal pulses are 2/4 bilaterally. Neurological: No focal deficits. Strength and sensation are grossly intact. - Labs CBC & Chem 7: 01/03/19 06:30 01/03/19 06:30 Labs: Abnormal Lab Results - Last 24 Hours (Table) 01/02/19 01/03/19 01/03/19 Range/Units 11:49 06:30 06:30 RBC 3.38 L 3.04 L (3.80-5.40) m/uL Hgb 10.6 L (11.4-16.0) gm/dL Hct 32.4 L (34.0-46.0) % MCV 103.7 H 106.5 H (80.0-100.0) fL Plt Count 100 L 88 L (150-450) k/uL Potassium 3.2 L (3.5-5.1) mmol/L Calcium 7.9 L (8.4-10.2) mg/dL Total Bilirubin 2.9 H (0.2-1.3) mg/dL AST 76 H (14-36) U/L Total Protein 6.2 L (6.3-8.2) g/dL Albumin 2.7 L (3.5-5.0) g/dL Assessment and Plan (1) GI bleed Narrative/Plan: Acute upper GI bleed hematemesis melena in a patient who drank wine on Tuesday w ith underlying alcohol cirrhosis portal hypertension and esophageal varices. EGD 10/12/2018 reported grade 2 esophageal varices portal hypertensive gastropathy. Suspect exacerbation of portal hypertensive gastropathy alcohol gastritis secondary to underlying coagulopathy and alcohol consumption. Current Visit: Yes Status: Acute Code(s): K92.2 - GASTROINTESTINAL HEMORRHAGE, UNSPECIFIED SNOMED Code(s): 18072853 (2) Esophageal varices Current Visit: Yes Status: Acute Code(s): I85.00 - ESOPHAGEAL VARICES WITHOUT BLEEDING SNOMED Code(s): 25140488 (3) Portal hypertensive gastropathy Current Visit: Yes Status: Acute Code(s): K76.6 - PORTAL HYPERTENSION; K31.89 - OTHER DISEASES OF STOMACH AND DUODENUM SNOMED Code(s): 879560906 (4) Alcoholic cirrhosis Current Visit: No Status: Acute Code(s): K70.30 - ALCOHOLIC CIRRHOSIS OF LIVER WITHOUT ASCITES SNOMED Code(s): 033264882 (5) Coagulopathy Current Visit: No Status: Acute Code(s): D68.9 - COAGULATION DEFECT, UNSPECIFIED SNOMED Code(s): 29893989 (6) Hematemesis Current Visit: Yes Status: Acute Code(s): K92.0 - HEMATEMESIS SNOMED Co de(s): 6117321 (7) Thrombocytopenia Current Visit: Yes Status: Acute Code(s): D69.6 - THROMBOCYTOPENIA, UNSPECIFIED SNOMED Code(s): 667858152 Plan: 1. Protonix 40 mg twice daily. Rocephin 1 g every 24 SBP prophylaxis. CBC daily. Inpatient EGD not planned at this time. If diet is tolerated may be discharged and RTO 1-2 weeks w/ Dr. Jauregui. Continue with Inderal 10 mg 3 times a day. Alcohol abstinence reinforced. Assessment and plan a care discussed with Dr. Jacobson
[2019-01-03] MEDS ORDERED: Potassium Replacement Protocol 1 EACH MISC MISCELLANE PRN (16:46)
--- NOTE | 2019-01-03 16:59 | P.PN ---
Subjective Progress Note Date: 01/03/19 Principal diagnosis: GI bleed Patient was seen and examined. No acute events overnight. Patient reports no more episodes of hematemesis. Complains of mild abdominal discomfort. States that she drank 2 bottles of wine for Father's Day. She denies any chest pain, shortness of breath or palpitations. Objective - Vital Signs Vital signs: Vital Signs Temp 98.2 F 01/03/19 08:00 Pulse 70 01/03/19 12:00 Resp 16 01/03/19 16:00 BP 93/59 01/03/19 12:00 Pulse Ox 98 01/03/19 12:00 Intake & Output 01/02/19 01/03/19 01/03/19 18:59 06:59 18:59 Intake Total 1340 360 720 Balance 1340 360 720 Weight 65.5 kg Intake: Intake, IV Titration 900 Amount Sodium Chloride 0.9% 1, 800 000 ml @ 100 mls/hr IV . Q10H STA Rx#:[id number] cefTRIAXone 1 gm In 100 Sodium Chloride 0.9% 50 ml @ 100 mls/hr IVPB Q24HR YAN Rx#:[id number] Oral 440 360 720 Other: # Voids 1 1 - Exam General: [non toxic], [no distress], [appears at stated age] Derm: [warm], [dry] Head: [atraumatic], [normocephalic], [symmetric] Eyes: [EOMI], [no lid lag], [jaundiced sclera] Mouth: [no lip lesion], [mucus membranes moist] Cardiovascular: [S1S2 reg], [no murmur], [positive DP pulse bilateral], Lungs: [CTA bilateral], [no rhonchi, no rales] , [no accessory muscle use] Abdominal: [soft], [ nontender to palpation], [no guarding], [no appreciable organomegaly] Ext: [no gross muscle atrophy], [no edema], [no contractures] Neuro: [no focal neuro deficits] Psych: [Alert], [oriented], [appropriate affect] - Labs CBC & Chem 7: 01/03/19 06:30 01/03/19 06:30 Labs: Abnormal Lab Results - Last 24 Hours (Table) 06/19/19 06/19/19 Range/Units 06:30 06:30 RBC 3.04 L (3.80-5.40) m/uL Hgb 10.6 L (11.4-16.0) gm/dL Hct 32.4 L (34.0-46.0) % MCV 106.5 H (80.0-100.0) fL Plt Count 88 L (150-450) k/uL Potassium 3.2 L (3.5-5.1) mmol/L Calcium 7.9 L (8.4-10.2) mg/dL Total Bilirubin 2.9 H (0.2-1.3) mg/dL AST 76 H (14-36) U/L Total Protein 6.2 L (6.3-8.2) g/dL Albumin 2.7 L (3.5-5.0) g/dL Assessment and Plan Assessment: Assessment and Plan Hematemesis Hypokalemia Hypoalbuminemia and elevated INR Transaminitis Thrombocytopenia and macrocytosis Hemoglobin from 11.8-10.6. History of esophageal varices and portal hypertension. EGD in September 2018 showed grade 2 esophageal varices and portal hypertensive gastropathy. Plans: Gastroenterology consulted, recommends observation and no repeat EGD as patient was recently scoped and this episode of hematemesis happened after ingestion of alcohol along with her hemoglobin remaining stable. Protonix 40 mg IV twice a day. Start propranolol 10 mg by mouth 3 times a day. Rocephin 1 g IV daily for concerns of SBP. Zofran as needed for nausea and vomiting. Diet advanced from nothing by mouth to low fiber. Potassium 3.3-3.2. Plans: Replace via protocol. Potassium 20 mEq by mouth daily. Albumin 2.7 and INR 1.8. Likely secondary to cirrhosis. Decreased hepatic function unable to synthesize clotting factors and albumin. Plans: Continue to monitor. Daily BMP. Daily coags. Total bilirubin 2.9, AST 76. Unlikely to be obstructive, likely secondary to cirrhosis. Plans: Continue to monitor. Daily CMP Platelet count 108, MCV 106.5. Likely secondary to alcohol abuse. Plans: Daily CBC.
[2019-01-04] MEDS: PROPRANOLOL 20 MG TAB PO SCH ×3 (00:31→15:19)
[2019-01-04] MEDS: FUROSEMIDE 40 MG TAB PO SCH (08:19)
[2019-01-04] MEDS: POTASSIUM CHLORIDE ER 20 MEQ TAB.ER PO SCH ×4 (08:19→14:16)
[2019-01-04] MEDS: SPIRONOLACTONE 25 MG TAB PO SCH (08:19)
[2019-01-04] MEDS: FERROUS SULFATE 325 MG TAB PO SCH (08:19)
[2019-01-04 08:40] LABS: Basophils % (A) 1 %; Eosinophils # (A) 0.2 k/uL (0-0.7); Eosinophils % (A) 5 %; HCT 31.3 % (34.0-46.0); HGB 10.1 gm/dL (11.4-16.0); Lymphocytes % (A) 31 %; MCHC 32.4 g/dL (31.0-37.0); Macrocytosis Moderate; Mean Platelet Volume 9.2; Monocytes # (A) 0.2 k/uL (0-1.0); Monocytes % (A) 6 %; Neutrophils # (A) 1.8 k/uL (1.3-7.7); Neutrophils % (A) 54 %; RBC 2.98 m/uL (3.80-5.40); RDW 14.9 % (11.5-15.5); WBC 3.3 k/uL (3.8-10.6)
[2019-01-04 08:46] LABS: African American GFR (CKD) >90 (>60 ml/min/1.73 sqM); Anion Gap 6 mmol/L; Blood Urea Nitrogen 9 mg/dL (7-17); Calcium 8.4 mg/dL (8.4-10.2); Carbon Dioxide 27 mmol/L (22-30); Chloride 106 mmol/L (98-107); Glucose 145 mg/dL (74-99); Sodium 139 mmol/L (137-145)
[2019-01-04 08:57] LABS: Platelet Count 90 k/uL (150-450)
[2019-01-04] MEDS: PANTOPRAZOLE 40 MG/10 ML VIAL IV SCH (09:14)
--- NOTE | 2019-01-04 11:11 | P.PN ---
Subjective Progress Note Date: 01/04/19 Principal diagnosis: hypokalemia patient was seen and examined. No acute events overnight. Patient states that she did not have a good nights sleep last night, states that she is tired. She denies any chest pain, shortness of breath or palpitations. No nausea or vomiting. No abdominal pain. No changes in urination or bowel habits. Objective - Vital Signs Vital signs: Vital Signs Temp 98.1 F 01/04/19 08:00 Pulse 68 01/04/19 08:00 Resp 16 01/04/19 08:00 BP 96/56 01/04/19 08:00 Pulse Ox 95 01/04/19 08:00 Intake & Output 01/03/19 01/04/19 01/04/19 18:59 06:59 18:59 Intake Total 960 240 Output Total 600 Balance 960 -360 Weight 66.1 kg Intake: Oral 960 240 Output: Urine 600 Other: Voiding Method Toilet # Voids 1 1 - Exam General: [non toxic], [no distress], [appears at stated age] Derm: [warm], [dry] Head: [atraumatic], [normocephalic], [symmetric] Eyes: [EOMI], [no lid lag], [jaundiced sclera] Mouth: [no lip lesion], [mucus membranes moist] Cardiovascular: [S1S2 reg], [no murmur], [positive DP pulse bilateral], Lungs: [CTA bilateral], [no rhonchi, no rales] , [no accessory muscle use] Abdominal: [soft], [ nontender to palpation], [no guarding], [no appreciable organomegaly] Ext: [no gross muscle atrophy], [no edema], [no contractures] Neuro: [no focal neuro deficits] Psych: [Alert], [oriented], [appropriate affect] - Labs CBC & Chem 7: 01/04/19 08:17 01/04/19 08:17 Labs: Abnormal Lab Results - Last 24 Hours (Table) 01/04/19 01/04/19 Range/Units 08:17 08:17 WBC 3.3 L (3.8-10.6) k/uL RBC 2.98 L (3.80-5.40) m/uL Hgb 10.1 L (11.4-16.0) gm/dL Hct 31.3 L (34.0-46.0) % MCV 105.0 H (80.0-100.0) fL Plt Count 90 L (150-450) k/uL Potassium 3.0 L (3.5-5.1) mmol/L Creatinine 0.50 L (0.52-1.04) mg/dL Glucose 145 H (74-99) mg/dL Assessment and Plan Assessment: Assessment and Plan Hematemesis Hypokalemia Hypoalbuminemia and elevated INR Transaminitis Thrombocytopenia and macrocytosis Hemoglobin from 11.8-10.6-10.1. History of esophageal varices and portal hype rtension. EGD in September 2018 showed grade 2 esophageal varices and portal hypertensive gastropathy. Plans: Gastroenterology consulted, recommends observation and no repeat EGD as patient was recently scoped and this episode of hematemesis happened after ingestion of alcohol along with her hemoglobin remaining stable. Protonix 40 mg IV twice a day. Start propranolol 10 mg by mouth 3 times a day. Rocephin 1 g IV daily for concerns of SBP. Zofran as needed for nausea and vomiting. Diet advanced from nothing by mouth to low fiber. Potassium 3.3-3.2-3.0. Plans: Replace via protocol. Potassium 20 mEq by mouth daily. Albumin 2.7 and INR 1.8. Likely secondary to cirrhosis. Decreased hepatic function unable to synthesize clotting factors and albumin. Plans: Continue to monitor. Daily BMP. Daily coags. Total bilirubin 2.9, AST 76. Unlikely to be obstructive, likely secondary to ci rrhosis. Plans: Continue to monitor. Daily CMP Platelet count 88-90, MCV 106.5-105. Likely secondary to alcohol abuse. Plans: Daily CBC. Patient hypokalemic today. Potassium 3.0. Will replace via IV and by mouth. Recheck potassium of 4 PM. DC home if normal.
[2019-01-04] MEDS ORDERED: POTASSIUM CHLORIDE ER 20 MEQ TAB.ER PO SCH (12:00)
[2019-01-04] MEDS ORDERED: POTASSIUM CHLORIDE 10 MEQ in WATER FOR INJECTION 1 100ML.BAG IVPB SCH (12:00)
--- NOTE | 2019-01-04 14:58 | P.PN ---
Subjective Progress Note Date: 01/04/19 Principal diagnosis: Hematemesis Hemoglobin 10.1. Platelet 90,000. No GI bleeding. Tolerating regular diet. Objective - Vital Signs Vital signs: Vital Signs Temp 98.1 F 01/04/19 08:00 Pulse 69 01/04/19 11:36 Resp 16 01/04/19 11:12 BP 85/53 01/04/19 11:12 Pulse Ox 93 L 01/04/19 11:12 Intake & Output 01/03/19 01/04/19 01/04/19 18:59 06:59 18:59 Intake Total 960 480 Output Total 600 Balance 960 -120 Weight 66.1 kg Intake: Oral 960 480 Output: Urine 600 Other: Voiding Method Toilet # Voids 1 1 - Exam General appearance: The patient is alert, oriented, in no acute distress. HET: Head is normocephalic and atraumatic. Pupils are equal and reactive. Oropharynx is clear without lesions. Neck: Supple without lymphadenopathy. Trachea midline. Heart: S1 S2. Regular rate and rhythm. Lungs: No crackles or wheezes are heard. Abdomen: Soft, nontender, nondistended with bowel sounds. No peritoneal signs. No palpable organomegaly or masses. Extremities: Normal skin color and turgor. No cyanosis, rash, ulceration, clubbing, or edema. Radial and pedal pulses are 2/4 bilaterally. Neurological: No focal deficits. Strength and sensation are grossly intact. - Labs CBC & Chem 7: 01/04/19 08:17 01/04/19 08:17 Labs: Abnormal Lab Results - Last 24 Hours (Table) 01/04/19 01/04/19 Range/Units 08:17 08:17 WBC 3.3 L (3.8-10.6) k/uL RBC 2.98 L (3.80-5.40) m/uL Hgb 10.1 L (11.4-16.0) gm/dL Hct 31.3 L (34.0-46.0) % MCV 105.0 H (80.0-100.0) fL Plt Count 90 L (150-450) k/uL Potassium 3.0 L (3.5-5.1) mmol/L Creatinine 0.50 L (0.52-1.04) mg/dL Glucose 145 H (74-99) mg/dL Assessment and Plan (1) GI bleed Narrative/Plan: Acute upper GI bleed hematemesis melena in a patient who drank wine on Tuesday with underlying alcohol cirrhosis portal hypertension and esophageal varices. EGD 10/12/2018 reported grade 2 esophageal varices portal hypertensive gastropathy. Suspect exacerbation of portal hypertensive gastropathy alcohol gastritis secondary to underlying coagulopathy and alcohol consumption. Current Visit: Yes Status: Acute Code(s): K92.2 - GASTROINTESTINAL HEMORRHAGE, UNSPECIFIED SNOMED Code(s): 02736280 (2) Esophageal varices Current Visit: Yes Status: Acute Code(s): I85.00 - ESOPHAGEAL VARICES WITHOUT BLEEDING SNOMED Code(s): 10085642 (3) Portal hypertensive gastropathy Current Visit: Yes Status: Acute Code(s): K76.6 - PORTAL HYPERTENSION; K 31.89 - OTHER DISEASES OF STOMACH AND DUODENUM SNOMED Code(s): 256885977 (4) Alcoholic cirrhosis Current Visit: No Status: Acute Code(s): K70.30 - ALCOHOLIC CIRRHOSIS OF LIVER WITHOUT ASCITES SNOMED Code(s): 104504714 (5) Coagulopathy Current Visit: No Status: Acute Code(s): D68.9 - COAGULATION DEFECT, UNSPECIFIED SNOMED Code(s): 73006678 (6) Hematemesis Current Visit: Yes Status: Acute Code(s): K92.0 - HEMATEMESIS SNOMED Code(s): 7721790 (7) Thrombocytopenia Current Visit: Yes Status: Acute Code(s): D69.6 - THROMBOCYTOPENIA, UNSPECIFIED SNOMED Code(s): 378699619 Plan: 1. Protonix 40 mg twice daily. Continue with Inderal 10 mg 3 times a day. Alcohol abstinence reinforced. Return to office in 2-3 weeks for reevaluation with Dr. Jauregui. Assessment and plan a care discussed with Dr. Jacobson
[2019-01-04 15:18] VITALS: BP 85/55; PULSE 72; TEMP 98.3
--- NOTE | 2019-01-15 07:27 | P.DS ---
Providers Date of admission: 01/02/19 03:22 Expected date of discharge: 01/15/19 Attending physician: Yefri Guo MD Consults: 01/02/19 03:23 Consult Physician Routine Consulting Provider: Estee Jauregui Consult Reason/Comments: Hematemesis. History of varices Do you want consulting provider notified?: Yes Consult Physician Urgent Consulting Provider: Ophelia Banegas Consult Reason/Comments: Hematemesis. History of varices Do you want consulting provider notified?: Already Contacted Primary care physician: [facility] Course: The patient is a 48 yo F with a PMH of alcoholic liver cirrhosis and known esophageal varices (follows w/ Dr Jauregui in outpatient setting), initially presented to [facility] yesterday evening for multiple episodes of wine colored vomitus. The patient reports having a total of 4 episodes of vomiting along with nausea yesterday evening with the last episode occurring at 8 PM on 01/01/2019. She otherwise denied any active complaints including fever, chills, abdominal pain, or diarrhea. She further denied chest pain, shortness of breath, palpitations, dizziness, or headaches. She underwent an extensive evaluation in the ED with WBC 6.0, Hgb 11.8, platelets 101, INR 1.9, K 3.3, Cr 0.47, Troponin < 0.012, and albumin 3.3. She is being admitted to the medicine service for further management. Hemoglobin was trended for hematemesis. Hemoglobin ranged from 11.8-10.1 but hospitalization. Patient had a history of esophageal varices and portal hypertension. There is an EGD done in September 2018 showed grade 2 esophageal varices and portal hypertensive nephropathy. Gastroenterology was consulted and recommended observation and EGD as patient was recently scoped and this episode of hematemesis happened after ingestion of alcohol along with her hemoglobin remaining stable. Patient was started on Protonix 40 mg IV twice a day and restarted on propranolol 10 mg by mouth 3 times a day. She is given Rocephin 1 g IV for concerns of SBP. Patient was noted to be hypokalemic throughout her hospitalization which was replaced by mouth. Patient had a low albumin along with elevated INR which is thought to be secondary to cirrhosis. Patient no further episodes of hematemesis while in the hospital. She was cleared for discharge by gastroenterology. Assessment and Plan Hematemesis Hypokalemia Hypoalbuminemia and elevated INR Transaminitis Thrombocytopenia and macrocytosis Hemoglobin from 11.8-10.6-10.1. History of esophageal varices and portal hypertension. EGD in September 2018 showed grade 2 esophageal varices and portal hypertensive gastropathy. Plans: Gastroenterology consulted, recommends observation and no repeat EGD as patient was recently scoped and this episode of hematemesis happened after ingestion of alcohol along with her hemoglobin remaining stable. Protonix 40 mg IV twice a day. Start propranolol 10 mg by mouth 3 times a day. Rocephin 1 g IV daily for concerns of SBP. Zofran as needed for nausea and vomiting. Diet advanced from nothing by mouth to low fiber. Potassium 3.3-3.2-3.0. Plans: Replace via protocol. Potassium 20 mEq by mouth daily. Albumin 2.7 and INR 1.8. Likely secondary to cirrhosis. Decreased hepatic function unable to synthesize clotting factors and albumin. Plans: Continue to monitor. Daily BMP. Daily coags. Total bilirubin 2.9, AST 76. Unlikely to be obstructive, likely secondary to cirrhosis. Plans: Continue to monitor. Daily CMP Platelet count 88-90, MCV 106.5-105. Likely secondary to alcohol abuse. Plans: Daily CBC. Patient hypokalemic today. Repeat potassium within normal limits. DC today. Patient Condition at Discharge: Stable Plan - Discharge Summary Discharge Rx Participant: Yes New Discharge Prescriptions: New Pantoprazole [Protonix] 40 mg PO BID #60 tablet. Continue Potassium Chloride [Klor-Con 20] 20 meq PO DAILY Ferrous Sulfate [Iron (65 MG Elemental)] 325 mg PO DAILY Spironolactone [Aldactone] 50 mg PO DAILY Propranolol [Inderal] 10 mg PO DAILY Furosemide [Lasix] 40 mg PO DAILY Discontinued Famotidine [Pepcid] 20 mg PO DAILY Discharge Medication List Ferrous Sulfate [Iron (65 MG Elemental)] 325 mg PO DAILY 10/06/18 [History] Furosemide [Lasix] 40 mg PO DAILY 10/06/18 [History] Potassium Chloride [Klor-Con 20] 20 meq PO DAILY 10/06/18 [History] Propranolol [Inderal] 10 mg PO DAILY 10/06/18 [History] Spironolactone [Aldactone] 50 mg PO DAILY 10/06/18 [History] Pantoprazole [Protonix] 40 mg PO BID #60 tablet. 01/03/19 [Rx] Follow up Appointment(s)/Referral(s): Estee Jauregui MD [STAFF PHYSICIAN] - 01/11/19 11:00 am () [facility], [NON-STAFF] - Jamison Turcios MD [Primary Care Provider] - 01/09/19 10:00 am (Tuesday) Patient Instructions/Handouts: Abuse of Alcohol (DC), Esophageal Varices (DC) Activity/Diet/Wound Care/Special Instructions: Diet: Regular Please take all medications as advised. Please refrain from drinking alcohol. Discharge Disposition: HOME WITH HOME HEALTH SERVICES
== END 2019-01-04 18:50 | disposition home health service (06) ==
LOC: EC 01:06 → 3SCARD 03:22 → INTOOBSV 03:22 → 3SCARD 07:57 → UNDODISIN 01-04 18:50
PROVIDERS: ADMIT Internal Medicine; ATTEND Internal Medicine
DX: K76.6 Portal hypertension (principal); K29.21 Alcoholic gastritis with bleeding; I85.10 Secondary esophageal varices without bleeding; D68.9 Coagulation defect, unspecified; K92.0 Hematemesis; K70.30 Alcoholic cirrhosis of liver without ascites; D69.6 Thrombocytopenia, unspecified; E88.09 Other disorders of plasma-protein metabolism, not elsewhere classified; K31.89 Other diseases of stomach and duodenum; D75.89 Other specified diseases of blood and blood-forming organs; E87.6 Hypokalemia; F10.10 Alcohol abuse, uncomplicated; K21.9 Gastro-esophageal reflux disease without esophagitis; Z79.899 Other long term (current) drug therapy; Z87.19 Personal history of other diseases of the digestive system; Z82.49 Family history of ischemic heart disease and other diseases of the circulatory system; Z83.511 Family history of glaucoma
CPT/HCPCS: 96376 ×3; 96361 ×3; 96365; 96367; 96375; 99285; 36415; 86900; 86901; 80053 ×2; 80048; 83605; 84132; 84484; 85025 ×3; 85610; 85730; 86850; G0378 ×3; G0480; J0696 ×3; J3480; C9113 ×3; 80320; 96374

== ENCOUNTER 2019-04-10 12:08 | Day surgery (SDC) | payer OTHER ==
[2019-04-10 12:53] VITALS: BP 96/57; PULSE 66; RESP 18; TEMP 97.8
[2019-04-10 13:03] LABS: INR 1.5 (<1.2); Mean Platelet Volume 7.8; Platelet Count 138 k/uL (150-450); Prothrombin Time 15.2 sec (9.0-12.0)
[2019-04-10 13:54] LABS: African American GFR (CKD) >90 (>60 ml/min/1.73 sqM)
--- NOTE | 2019-04-10 14:17 | US ---
Therapeutic paracentesis. DATE OF EXAM: 04/10/2019 CLINICAL HISTORY: Ascites FINDINGS: Preliminary imaging demonstrated no sizable fluid collection for percutaneous drainage. IMPRESSION: Deferred ultrasound paracentesis secondary to insufficient fluid.
== END 2019-04-10 14:10 | disposition home or self-care (01) ==
LOC: RADPROMAIN 12:08
PROVIDERS: ATTEND Internal Medicine Gastroenterology
DX: R18.8 Other ascites (principal); Z53.8 Procedure and treatment not carried out for other reasons
CPT/HCPCS: 36415; 76705; 82565; 85049; 85610

== ENCOUNTER 2020-03-05 09:13 | Day surgery (SDC) | payer OTHER ==
[2020-02-11 14:14] VITALS: BMI 20.9
[~2020-03-05 09:13] MED LIST changes: -LIDOCAINE 1% 20 ML VIAL (10MG/ML) FOR IV START INTRADERMA PRN
[2020-03-05 10:05] VITALS: TEMP 98.6
[2020-03-05] MEDS ORDERED: PROPOFOL 10 MG/ML 20 ML VIAL IV ONE (11:08)
[2020-03-05] MEDS ORDERED: LIDOCAINE 1% INJ 10MG/ML (20 ML MDV) ONE (11:08)
--- NOTE | 2020-03-05 11:17 | P.PCN ---
Date of Procedure: 03/05/20 Procedure(s) Performed: BRIEF HISTORY: Patient is a 40-year-old, pleasant, white female with history of alcoholic cirrhosis of the liver and esophageal varices, scheduled for an upper endoscopy as a part of follow-up of esophageal varices and possible ligation today.. PROCEDURE PERFORMED: Esophagogastroduodenoscopy. PREOPERATIVE DIAGNOSIS: Follow-up esophageal varices. IV sedation per anesthesia. PROCEDURE: After informed consent was obtained, the patient was brought into the endoscopy unit. IV sedation was administered by Anesthesia under continuous monitoring. Initially the Olympus GIF-140 video endoscope was inserted into the mouth. Esophagus intubated without any difficulty. It was gradually advanced into the stomach and duodenum and carefully examined. The bulb and the second part of the duodenum appeared normal. The scope at this time was withdrawn to the stomach, adequately insufflated with air, and upon careful examination, mucosa of the antrum, appeared normal. Mucosa of the body, cardia and the fundus had changes consistent with moderate to severe portal hypertensive gastr opathy. No gastric varices seen.. The scope was then withdrawn into the esophagus. The GE junction was located at 39 cm from the incisors. The esophagus appeared normal. There was a very small esophageal varices seen and ligation was not performed. There were no erosions or ulcerations seen and the patient tolerated the procedure well. IMPRESSION: 1. Very small esophageal varices. 2. Moderate to severe portal hypertensive gastropathy. RECOMMENDATIONS: The findings of this examination were discussed with the patient as well as a family. She will continue with her current medications and will plan a repeat upper endoscopy with variceal ligation in 6 months.
[2020-03-05 11:35] VITALS: BP 120/77; PULSE 68; RESP 16
== END 2020-03-05 12:05 | disposition home or self-care (01) ==
LOC: ORWHC2ENDO 09:13
PROVIDERS: ATTEND Internal Medicine Gastroenterology
DX: K70.31 Alcoholic cirrhosis of liver with ascites (principal); I85.10 Secondary esophageal varices without bleeding; K76.6 Portal hypertension; K31.89 Other diseases of stomach and duodenum; K21.9 Gastro-esophageal reflux disease without esophagitis; K29.70 Gastritis, unspecified, without bleeding; Z79.899 Other long term (current) drug therapy; Z98.891 History of uterine scar from previous surgery; Z98.890 Other specified postprocedural states; Z78.0 Asymptomatic menopausal state
CPT/HCPCS: 43235; J2001; J2704